=== PATIENT | male | born 1995 | race Asian ===

== ENCOUNTER 2022-08-24 05:22 | Inpatient (IN) ==
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
[2022-08-24] MEDS ORDERED: CLINDA 900 MG **Premixed Bag IV SCH (06:00)
[2022-08-24] MEDS ORDERED: LR 15ML/HR IV SCH (06:00)
[2022-08-24] MEDS ORDERED: LIDOCAINE 1%/EPINEPHRINE 1:100,000 50 ML VIAL ONE (06:52)
[2022-08-24] MEDS ORDERED: LIDOCAINE 1% LOCAL 20 ML VIAL ONE (06:52)
[2022-08-24] MEDS ORDERED: BUPIVACAINE 0.25% PF 30 ML VIAL ONE (06:52)
--- NOTE | 2022-08-24 06:52 | History & Physical Bridge Note ---
Date of Service August 24, 2022 History & Physical Bridge Note I have examined the patient, reviewed the History & Physical and in the interval since the performance of the History & Physical I have noted the following changes of clinical significance: no changes noted
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
[2022-08-24] MEDS ORDERED: fentaNYL citrate PF 100 MCG/2 ML VIAL ONE (07:02)
[2022-08-24] MEDS ORDERED: MIDAZOLAM HCL 1 MG/ML 2ML VIAL ONE (07:02)
[2022-08-24] MEDS ORDERED: HYDROmorphone INJ 2 MG/ML SYR/VIAL ONE (07:41)
[2022-08-24] MEDS ORDERED: PROPOFOL IV EMULSION 10 MG/ML 20 ML VIAL IV ONE ×3 (07:41→10:56)
[2022-08-24] MEDS ORDERED: ROCURONIUM BROMIDE 10 MG/ML 5 ML VIAL IV ONE ×2 (07:41→09:04)
[2022-08-24] MEDS ORDERED: ATROPINE SULFATE 0.1 MG/ML 10ML SYR IV PRN (08:07)
[2022-08-24] MEDS ORDERED: ONDANSETRON INJ 2 MG/ML 2 ML VIAL IV PRN ×2 (08:07→14:21)
[2022-08-24] MEDS ORDERED: ePHEDrine sulfate 50 MG/ML AMP IV PRN (08:07)
[2022-08-24] MEDS ORDERED: PROMETHAZINE HCL 6.25 MG in SODIUM CHLORIDE 0.9% 50 ML IV PRN (08:07)
[2022-08-24] MEDS ORDERED: ONDANSETRON INJ 2 MG/ML 2 ML VIAL ONE (10:54)
--- NOTE | 2022-08-24 11:51 | Operative Report ---
PG Post Operative Report Pre & Post Diagnosis Operation Date: 08/24/22 07:00 Pre-Op Diagnosis: Scar Conditions and Fibrosis of Skin; abdoinal wall hernia Post-Op Diagnosis: Scar Conditions and Fibrosis of Skin; extensive adhesions; abdominal wall hernia I identified the patient and participated in the time-out.: Yes Procedure Operation Date: 08/24/22 07:00 Actual Procedures p Complex Scar Revision Abdomen(Not Applicable) - Anny Flores MD s Complex scar revision with small bowel resection x2, Closure multiple small bowel enterotomies, extensive enterolysis and abdominal wall reconstruction (Not Applicable) - Jean Carlos Singh DO Surgeon Jean Carlos Singh, DO 2nd Surgeon: Anny Flores MD Treasury Agent Bay López Pa-c Estimated Blood Loss 200 Findings Consistent with Post-Op Diagnosis Specimens none Description of Procedure After informed consent was obtained the patient was taken to the operating room placed in supine position. After successful intubation a Fajardo catheter was placed sterilely. The abdomen was then sterilely prepped and draped in usual fashion. Dr. Flores had marked the patient previously in the preoperative area. I made an incision with a 15 blade scalpel encircling the prior widened fibrotic midline scar. We used cautery and traction/ countertraction to start taking down the skin creating flaps as we went. The skin was very thin in the central portion of the scar. As we began taking this off of underlying tissue we noted that the small bowel in multiple areas was literally to the undersurface of the skin. This necessitated making purposeful enterotomies to free the bowel from the overlying midline scar. Eventually we were able to get the scar removed completely. The next several hours were spent simply taking down primarily small bowel adhesions. They were very dense and this process was quite difficult. Eventually we were able to free up the majority of the bowel. We then evaluated the enterotomies. There were 2 areas where the enterotomies were close to each other and therefore we decided to perform a small bowel resections. We divided the small bowel on either side of the enterotomies using a JANA brown cartridge linear stapler. We then performed a [id number]-jh-[id number] small bowel anastomosis again with a 60 mm brown cartridge JANA stapler. For the 1 resection I closed the common enterotomy using 3-0 Monocryl with serosal/mucosal layers in running fashion followed by 3-0 silk in Lembert fashion as an anterior layer. 3-0 silk was also used to place a crotch stitch and 2-0 Vicryl used to close the mesenteric defect. The second small bowel resection was similar and there were 3 small enterotomies close to each other. Again we divided the small bowel on either side of the enterotomies using JANA linear stapler. Again a [id number] anastomosis was performed. However at the site of the common enterotomy there was some undersurface of the dermis and fascia attached to the bowel and therefore I closed the common enterotomy using a TA 60 stapling device. Again 3-0 silk was used to place a crotch stitch and 2-0 Vicryl used to close the mesenteric defect. There were several other serosal tears which were oversewn using 3-0 silk as well as several other through and through enterotomies which I closed using 3-0 Monocryl for double layer followed by 3-0 silk in Lembert fashion. We thoroughly irrigated the entire abdomen. Once all the enterotomies were dealt with we then changed our gloves. I ran the small bowel in its entirety and there were no other enterotomies or serosal tears. Next we created skin flaps in 360 degrees. The fascia was able to be reapproximated without a component separation. I used #2 nylon in simple erupted fashion to primarily close the defect with minimal tension. Dr. Flores then performed the closure. Please see her dictation for wound closure/scar revision. Once the wound was dressed and abdominal binder was placed. The patient was awakened extubated and transferred recovery in stable condition. Dr. Flores is well as Carolina López Pa-c were present for the entire procedure and assisted in all facets of scar removal enterotomy repair small bowel resection fascial closure and wound closure. I attest to the content of the Intraoperative Record and any orders documented therein. Any exceptions are noted below.
[2022-08-24] MEDS: fentaNYL citrate PF 100 MCG/2 ML VIAL IV PRN ×2 (12:10→12:15)
--- NOTE | 2022-08-24 12:19 | Operative Report ---
PG Post Operative Report Pre & Post Diagnosis Operation Date: 08/24/22 07:00 Pre-Op Diagnosis: Scar Conditions and Fibrosis of Skin Post-Op Diagnosis: Scar Conditions and Fibrosis of Skin I identified the patient and participated in the time-out.: Yes Procedure Operation Date: 08/24/22 07:00 Actual Procedures p Complex Scar Revision Abdomen(Not Applicable) - Anny Flores MD s Complex scar revision with small bowel resection x2, Closure multiple small bowel enterotomies, extensive enterolysis and abdominal wall reconstruction (Not Applicable) - Jean Carlos Singh, Surgeon Anny Flores MD Stacker Bay López Pa-c Estimated Blood Loss 200 Findings Consistent with Post-Op Diagnosis Specimens none Anesthesia Type General Indications Large, atrophic abdominal scar secondary to traumatic injury/emergent laparatomy Description of Procedure Consent was obtained. Patient was identified and marked in the preoperative holding area. I marked the planned incision in elliptical fashion incorporating all of the prior atrophic scar at the junction of scar and normal-appearing skin. Patient was brought to the operating room, positioned supine, placed under general anesthesia. Timeout was performed. I scrubbed and assisted Dr. Singh throughout his portion of the procedure; please see his dictated operative report for details. Upon closure of the fascia, I did take over and perform complex wound closure of the abdominal wound. Wound edges were undermined about 3 cm. Where Eduard's fascia was able to be notified, 2-0 Vicryl interrupted sutures were placed, followed by 2-0 Vicryl deep dermal suture. I then performed superficial closure using 3-0 PDS interrupted superficial dermal suture. A prominent standing cutaneous deformity did develop at the inferior aspect of the incision. Rather than continue to pernell this in a vertical direction, I did elect to perform a small horizontal excision of dogears and closed the wound in a horizontal fashion, resulting in a small inverted T. After closure of the superficial dermis, cutaneous layer was closed with 3-0 Monocryl running subcuticular suture. Total wound closure length 27 cm. Due to the large nature of this wound, multiple enterotomies, complexity, I did elect to place a Prevena wound VAC. Dry dressings and abdominal binder were placed. Patient was awakened and transferred recovery in satisfactory condition. Carolina López PA-C was present and scrubbed throughout, assisted me in simultaneous layered wound closure. I attest to the content of the Intraoperative Record and any orders documented therein. Any exceptions are noted below.
--- NOTE | 2022-08-24 12:20 | Post Operative Brief Note ---
PG Immediate Post Op with CF Date of Surgery August 24, 2022 Pre & Post Diagnosis Operation Date: 08/24/22 07:00 Pre-Op Diagnosis: Scar Conditions and Fibrosis of Skin Post-Op Diagnosis: Scar Conditions and Fibrosis of Skin I identified the patient and participated in the time-out.: Yes Procedure Operation Date: 08/24/22 07:00 Actual Procedures p Complex Scar Revision Abdomen(Not Applicable) - Anny Flores MD s Complex scar revision with small bowel resection x2, Closure multiple small bowel enterotomies, extensive enterolysis and abdominal wall reconstruction (Not Applicable) - Jean Carlos Singh, Surgeon Anny Flores MD Foot Piece Assembler Bay López Pa-c Estimated Blood Loss 200 Findings Consistent with Post-Op Diagnosis Specimens Specimen Description: No Specimen per surgeon(s) Drains Fajardo Catheter and Justin-Willis Drain (10 mm Flat)
[2022-08-24] MEDS: HYDROmorphone INJ 2 MG/ML SYR/VIAL IV PRN ×4 (12:26→12:42)
[2022-08-24] MEDS: HYDROmorphone INJ 0.5 MG/0.5 ML SYR IV PRN ×2 (13:05→13:25)
--- NOTE | 2022-08-24 13:41 | Anesthesiology Progress Note ---
Date of Service August 24, 2022 Anesthesia Post Procedure Vital Signs Vital Signs: Temp Pulse Pulse Resp BP Pulse Ox O2 Del Method 08/24/22 13:30 110 H 20 130/86 98 Nasal Cannula 08/24/22 13:20 102 H 17 139/85 98 Nasal Cannula 08/24/22 13:10 96 H 20 131/79 97 Nasal Cannula 08/24/22 13:00 98.4 F 96 H 15 138/82 98 Nasal Cannula 08/24/22 12:50 98.4 F 90 14 149/88 H 100 Nasal Cannula 08/24/22 12:40 98.4 F 99 H 13 146/87 H 100 Nasal Cannula 08/24/22 12:30 98.4 F 85 17 147/91 H 100 Nasal Cannula 08/24/22 12:20 98.4 F 87 12 150/91 H 100 Nasal Cannula 08/24/22 12:10 98.4 F 93 H 12 143/89 H 100 Nasal Cannula 08/24/22 12:07 98.4 F 102 H 12 143/114 H 100 Nasal Cannula 08/24/22 05:50 98.1 F 81 20 113/77 96 Room Air O2 Flow Rate 08/24/22 13:30 3 08/24/22 13:20 3 08/24/22 13:10 3 08/24/22 13:00 3 08/24/22 12:50 3 08/24/22 12:40 3 08/24/22 12:30 3 08/24/22 12:20 3 08/24/22 12:10 3 08/24/22 12:07 3 08/24/22 05:50 Pain Intensity Abdomen: Pain Intensity: 5 Transfer of Care Handoff Completed per policy Notes Mental Status: alert / awake / arousable and participated in evaluation Patient Amnestic to Procedure: Yes Nausea / Vomiting: adequately controlled Pain: adequately controlled Airway Patency, RR, SpO2: stable & adequate BP & HR: stable & adequate Hydration State: stable & adequate Anesthetic Complications: no major complications apparent and Pt Satisfied with anesthetic care
[2022-08-24] MEDS ORDERED: ACETAMINOPHEN 325 MG TAB PO PRN (14:21)
[2022-08-24] MEDS ORDERED: diphenhydrAMINE Capsule 25 MG CAP PO PRN (14:21)
[2022-08-24] MEDS ORDERED: MoRPHine SULFATE 2 MG/ML CARP IV PRN ×2 (14:21→15:31)
[2022-08-24] MEDS ORDERED: oxyCODONE/ACETAMINOPHEN 5mg/325mg TAB PO PRN (14:21)
[2022-08-24] MEDS: D5W AND 1/2NSS + 20MEQ KCL 20 MEQ/1,000 ML BAG IV SCH (14:58)
[2022-08-24] MEDS: CLINDAMYCIN/D5W 600 MG/50 ML BAG IV SCH ×2 (14:58→23:03)
[2022-08-24] MEDS ORDERED: MoRPHine SULFATE 4 MG/ML 1 ML CARP\\VIAL IV PRN (15:27)
[2022-08-24] MEDS ORDERED: NALOXONE HCL 0.4 MG/1 ML VIAL/CARP IV PRN (15:56)
[2022-08-24] MEDS: ACETAMINOPHEN 1,000 MG/100 ML VIAL IV SCH ×2 (16:05→23:03)
[2022-08-24] MEDS: HYDROmorphone PCA 30 MG/30 ML IV PRN (16:14)
[2022-08-24] MEDS: SODIUM CHLORIDE 0.9% 1000ML 1,000 ML IV SCH (17:21)
[2022-08-24] MEDS: LORazepam 0.5 MG TAB PO PRN (23:03)
[2022-08-24] MEDS: diphenhydrAMINE 50 MG/ML VIAL IV PRN (23:58)
[2022-08-25] MEDS: D5W AND 1/2NSS + 20MEQ KCL 20 MEQ/1,000 ML BAG IV SCH ×2 (06:03→20:31)
[2022-08-25] MEDS: ACETAMINOPHEN 1,000 MG/100 ML VIAL IV SCH ×3 (06:07→23:00)
[2022-08-25] MEDS: CLINDAMYCIN/D5W 600 MG/50 ML BAG IV SCH (06:41)
[2022-08-25 07:33] LABS: Basophils # (auto) 0.03 K/uL (0-0.2); Basophils % (auto) 0.2 %; Eosinophils # (auto) 0.01 K/uL (0-0.50); Eosinophils % (auto) 0.1 %; Hematocrit (blood only) 40.9 % (42.0-52.0); Hemoglobin 14.1 g/dl (14.0-18.0); Immature Granulocytes # (auto) 0.08 K/uL (0.01-0.20); Immature Granulocytes % (auto) 0.5 %; Lymphocytes # (auto) 1.73 K/uL (1.2-3.4); Mean Corpuscular Hemoglobin 29.6 pg (25.0-34.0); Mean Corpuscular Hgb Conc 34.5 g/dL (32.0-36.0); Mean Corpuscular Volume 85.9 fL (80.0-100.0); Mean Platelet Volume 10.5 fL (9.4-12.4); Monocytes # (auto) 1.27 K/uL (0.11-0.59); Monocytes % (auto) 8.1 %; Neutrophils # (auto) 12.59 K/uL (1.40-6.50); Neutrophils % (auto) 80.1 %; Platelet Count 228 K/uL (130-400); RDW Coefficient of Variation 12.9 % (11.5-14.5); RDW Standard Deviation 40.3 fL (36.4-46.3); Red Blood Count 4.76 M/uL (4.70-6.10); White Blood Count 15.71 K/ul (4.8-10.8)
[2022-08-25 07:57] LABS: BUN Creatinine Ratio 11.4 (10-20); Calcium 8.2 mg/dl (8.5-10.1); Creatinine Clr Calc Pharmacy 139.4 ml/min; Est GFR (African American) 143.6 ml/min; Est GFR (Non-African American) 123.9 ml/min; Potassium 3.5 mmol/L (3.5-5.1)
--- NOTE | 2022-08-25 08:23 | Surgery Progress Note ---
Date of Service August 25, 2022 Assessment & Plan (1) Scar conditions and fibrosis of skin: Plan: Patient was evaluated with Dr. Singh. NG tube to stay 1-2 more days. He may continue with small sips and ice chips- expect post-op ileus due to extensive bowel manipulation. Armand encouraged to ambulate today. (2) Acquired abdominal wall defect: Admission and Anticipated Discharge Date Admission Date: August 24, 2022 Subjective Armand is resting comfortably in bed. Pain was uncontrolled last night, so he was switched to CEMENTER pump, now pain is manageable. Fajardo was removed this AM. He has not voided yet. Physical Exam Physical Exam: drain with serosang output. wound vac holding excellent suction, abd soft Results & Data ([facility]) Vital Signs (Past 12 Hours) Vital Signs Temp Pulse Resp BP Pulse Ox O2 Del Method O2 Flow Rate 08/25/22 08:03 Room Air 08/25/22 07:28 36.9 C 80 18 121/80 96 Nasal Cannula 1 08/24/22 20:30 Nasal Cannula 1 08/25/22 03:00 37.1 C 88 16 119/75 100 Nasal Cannula 1.0 08/24/22 22:27 36.9 C 89 14 133/78 100 Nasal Cannula 1.0 PG Care Time/CCT Total # of Minutes Spent Total Time Spent with Patient: Total time spent is greater than 50% in coordination of care (as documented) at patient's floor/unit and/or counseling patient: Coding Level of Care Code 20081 Post Operative Follow-Up Diagnoses Scar conditions and fibrosis of skin L90.5 Acquired abdominal wall defect M95.8
--- NOTE | 2022-08-25 08:31 | Surgery Progress Note ---
Date of Service August 25, 2022 Assessment & Plan (1) H/O abdominal surgery: Plan: Postoperative day #1 Doing well I would like to keep the NG tube as long as he can tolerate it until we get return of bowel function. At extremely high risk for postoperative ileus. Fajardo removed. Keep CEMETERY KEEPER for now. Encourage out of bed/ambulation as tolerated. Admission and Anticipated Discharge Date Admission Date: August 24, 2022 Subjective Patient seen. He actually looks better than I expected. He sitting up in bed and appears to be comfortable. Pain management changed to a Dilaudid CEMETERY KEEPER last night which did improve things. Physical Exam Physical Exam: Alert. No acute distress VIDYA drain with pink serous fluid only. Binder taken down. Wound VAC in place and functioning nicely. Results & Data ([facility]) Vital Signs (Past 12 Hours) Vital Signs Temp Pulse Resp BP Pulse Ox O2 Del Method O2 Flow Rate 08/25/22 08:03 Room Air 08/25/22 07:28 36.9 C 80 18 121/80 96 Nasal Cannula 1 08/24/22 20:30 Nasal Cannula 1 08/25/22 03:00 37.1 C 88 16 119/75 100 Nasal Cannula 1.0 08/24/22 22:27 36.9 C 89 14 133/78 100 Nasal Cannula 1.0 PG Care Time/CCT Total # of Minutes Spent Total Time Spent with Patient: Total time spent is greater than 50% in coordination of care (as documented) at patient's floor/unit and/or counseling patient: Coding Level of Care Code 80375 Post Operative Follow-Up Diagnoses H/O abdominal surgery Z98.890
[2022-08-25] MEDS: MULTIVITAMIN TAB PO SCH (08:43)
[2022-08-25] MEDS: SODIUM CHLORIDE 0.9% 1000ML 1,000 ML IV SCH (15:21)
--- NOTE | 2022-08-25 16:10 | Surgery Progress Note ---
Date of Service August 25, 2022 Assessment & Plan (1) Scar conditions and fibrosis of skin: (2) Acquired abdominal wall defect: Plan Prevena will stay in place ~7 days. NG tube/diet management per general surgery. Admission and Anticipated Discharge Date Admission Date: August 24, 2022 Subjective POD #1 s/p complex scar revision, SB resection x2, closure enterotomies, enterolysis, ab wall reconstruction. Doing well. Pain controlled Physical Exam Physical Exam: Patient out of bed, sitting in a chair, appears comfortable. drain with serosang output. wound vac holding excellent suction, abd soft Results & Data ([facility]) Vital Signs (Past 12 Hours) Vital Signs Temp Pulse Resp BP Pulse Ox O2 Del Method O2 Flow Rate 08/25/22 12:27 98.4 F 102 H 18 121/75 99 Nasal Cannula 1 08/25/22 08:03 Room Air 08/25/22 07:28 98.4 F 80 18 121/80 96 Nasal Cannula 1 Laboratory Results WBC 15.7, Hgb 14.1 PG Care Time/CCT Total # of Minutes Spent Total Time Spent with Patient: Total time spent is greater than 50% in coordination of care (as documented) at patient's floor/unit and/or counseling patient: Coding Level of Care Code 82075 Post Operative Follow-Up Diagnoses Scar conditions and fibrosis of skin L90.5 Acquired abdominal wall defect M95.8
[2022-08-25] MEDS: LORazepam 0.5 MG TAB PO PRN (20:41)
[2022-08-25] MEDS: diphenhydrAMINE 50 MG/ML VIAL IV PRN (20:42)
[2022-08-26] MEDS: ACETAMINOPHEN 1,000 MG/100 ML VIAL IV SCH ×3 (05:23→23:15)
[2022-08-26 07:59] LABS: Basophils # (auto) 0.04 K/uL (0-0.2); Basophils % (auto) 0.2 %; Eosinophils # (auto) 0.01 K/uL (0-0.50); Eosinophils % (auto) 0.1 %; Hematocrit (blood only) 35.7 % (42.0-52.0); Hemoglobin 12.4 g/dl (14.0-18.0); Immature Granulocytes # (auto) 0.09 K/uL (0.01-0.20); Immature Granulocytes % (auto) 0.5 %; Lymphocytes # (auto) 1.78 K/uL (1.2-3.4); Lymphocytes % (auto) 9.6 %; Mean Corpuscular Hgb Conc 34.7 g/dL (32.0-36.0); Mean Corpuscular Volume 86.4 fL (80.0-100.0); Mean Platelet Volume 10.5 fL (9.4-12.4); Monocytes # (auto) 1.59 K/uL (0.11-0.59); Monocytes % (auto) 8.6 %; Neutrophils # (auto) 14.95 K/uL (1.40-6.50); Platelet Count 230 K/uL (130-400); RDW Coefficient of Variation 12.7 % (11.5-14.5); RDW Standard Deviation 40.2 fL (36.4-46.3); Red Blood Count 4.13 M/uL (4.70-6.10); White Blood Count 18.46 K/ul (4.8-10.8)
[2022-08-26 08:22] LABS: BUN Creatinine Ratio 9.7 (10-20); Calcium 8.6 mg/dl (8.5-10.1); Creatinine Clr Calc Pharmacy 152.9 ml/min; Est GFR (African American) 149.2 ml/min; Est GFR (Non-African American) 128.7 ml/min; Potassium 3.5 mmol/L (3.5-5.1)
[2022-08-26] MEDS: HYDROmorphone PCA 30 MG/30 ML IV PRN (09:08)
[2022-08-26] MEDS: CLINDAMYCIN/D5W 600 MG/50 ML BAG IV SCH ×3 (10:07→23:16)
[2022-08-26] MEDS: D5W AND 1/2NSS + 20MEQ KCL 20 MEQ/1,000 ML BAG IV SCH (10:07)
--- NOTE | 2022-08-26 10:13 | Surgery Progress Note ---
Date of Service August 26, 2022 Assessment & Plan (1) H/O abdominal surgery: Plan Postoperative day #2. I would prefer to keep his NG tube another day but he really is insisting it be removed. I warned him that if he gets distended or nauseated we might have to put it back in. We will remove it but only allow him to continue to have some sips of liquids until he gets return of his bowel function. We will monitor his leukocytosis. Likely reactive secondary to the surgery. No overt signs of infection at this point. Admission and Anticipated Discharge Date Admission Date: August 24, 2022 Subjective Patient seen. Doing okay. Ambulated in the halls yesterday and this morning. No new complaints. Basically insisting his NG tube be removed. Physical Exam Physical Exam: Alert. Resting comfortably. No acute distress Wound VAC in place the wound looks good VIDYA drain with a small amount of serosanguineous output Results & Data ([facility]) Vital Signs (Past 12 Hours) Vital Signs Temp Pulse Resp BP Pulse Ox O2 Del Method O2 Flow Rate 08/26/22 08:57 Room Air 08/26/22 08:41 37.2 C 101 H 18 129/80 97 Nasal Cannula 1 08/26/22 03:35 37.4 C 99 H 14 128/69 97 Room Air 08/25/22 23:30 37.7 C H 112 H 16 133/83 97 Room Air PG Care Time/CCT Total # of Minutes Spent Total Time Spent with Patient: Total time spent is greater than 50% in coordination of care (as documented) at patient's floor/unit and/or counseling patient: Coding Level of Care Code 68942 Post Operative Follow-Up Diagnoses H/O abdominal surgery Z98.890
[2022-08-26] MEDS: MULTIVITAMIN TAB PO SCH (11:12)
--- NOTE | 2022-08-26 12:56 | Surgery Progress Note ---
Date of Service August 26, 2022 Assessment & Plan (1) H/O abdominal surgery: Plan: Wound vac will stay in place until 1 week post-op. Patient encouraged only small sips as the can of soda is likely contributing to his nausea. He was encouraged to continue walking in halls. Leukocytosis being watched by gen Surg. Will recheck patient tomorrow morning. Admission and Anticipated Discharge Date Admission Date: August 24, 2022 Ruiz Acuna is examined in bed. He reports feeling nauseous and weak. NG tube was removed this AM, and he has since drank an entire can of Sprite. He has tried ambulating, has not passed any flatus. WBC is up today from 15 to 18. Physical Exam Physical Exam: HR 100 BP 98/65 drain with bloody, sang output. drain stripped. abd soft, wound vac holding suction, mild ecchymosis noted under wound vac dressing Results & Data ([facility]) Vital Signs (Past 12 Hours) Vital Signs Temp Pulse Resp BP Pulse Ox O2 Del Method O2 Flow Rate 08/26/22 12:25 36.8 C 100 H 18 98/65 L 100 Nasal Cannula 1 08/26/22 08:57 Room Air 08/26/22 08:41 37.2 C 101 H 18 129/80 97 Nasal Cannula 1 08/26/22 03:35 37.4 C 99 H 14 128/69 97 Room Air PG Care Time/CCT Total # of Minutes Spent Total Time Spent with Patient: Total time spent is greater than 50% in coordination of care (as documented) at patient's floor/unit and/or counseling patient: Coding Level of Care Code 48432 Post Operative Follow-Up Diagnoses H/O abdominal surgery Z98.890
[2022-08-26] MEDS: ENOXAPARIN INJ 40 MG/0.4 ML SYR SQ SCH (16:39)
[2022-08-26] MEDS: SODIUM CHLORIDE 0.9% 1000ML 1,000 ML IV SCH (16:51)
[2022-08-27] MEDS: LORazepam 0.5 MG TAB PO PRN ×2 (00:46→22:32)
[2022-08-27] MEDS: D5W AND 1/2NSS + 20MEQ KCL 20 MEQ/1,000 ML BAG IV SCH ×2 (00:46→14:23)
[2022-08-27] MEDS: ACETAMINOPHEN 1,000 MG/100 ML VIAL IV SCH ×3 (05:38→20:22)
[2022-08-27 06:52] LABS: Basophils # (auto) 0.02 K/uL (0-0.2); Basophils % (auto) 0.1 %; Eosinophils # (auto) 0.08 K/uL (0-0.50); Eosinophils % (auto) 0.6 %; Hemoglobin 9.7 g/dl (14.0-18.0); Immature Granulocytes # (auto) 0.06 K/uL (0.01-0.20); Immature Granulocytes % (auto) 0.4 %; Lymphocytes # (auto) 1.19 K/uL (1.2-3.4); Lymphocytes % (auto) 8.4 %; Mean Corpuscular Hemoglobin 29.8 pg (25.0-34.0); Mean Corpuscular Hgb Conc 34.6 g/dL (32.0-36.0); Mean Corpuscular Volume 86.2 fL (80.0-100.0); Mean Platelet Volume 10.3 fL (9.4-12.4); Monocytes % (auto) 8.5 %; Neutrophils # (auto) 11.54 K/uL (1.40-6.50); Platelet Count 197 K/uL (130-400); RDW Coefficient of Variation 12.4 % (11.5-14.5); RDW Standard Deviation 39.3 fL (36.4-46.3); Red Blood Count 3.25 M/uL (4.70-6.10); White Blood Count 14.09 K/ul (4.8-10.8)
[2022-08-27 07:08] LABS: Anion Gap 5 (3-11); BUN Creatinine Ratio 9.5 (10-20); Blood Urea Nitrogen 6 mg/dl (6-23); Calcium 8.1 mg/dl (8.5-10.1); Carbon Dioxide 29 mmol/L (21-32); Chloride 99 mmol/L (98-107); Creatinine Clr Calc Pharmacy 174.8 ml/min; Est GFR (African American) > 150.0 ml/min; Glucose 101 mg/dl (70-99(Fasting)); Potassium 3.2 mmol/L (3.5-5.1); Sodium 133 mmol/L (136-145)
[2022-08-27] MEDS ORDERED: POTASSIUM CHLORIDE CRTAB 20 MEQ TABCR PO STA (07:34)
[2022-08-27] MEDS: CLINDAMYCIN/D5W 600 MG/50 ML BAG IV SCH ×2 (08:19→16:41)
[2022-08-27] MEDS: ENOXAPARIN INJ 40 MG/0.4 ML SYR SQ SCH (08:20)
[2022-08-27] MEDS: MULTIVITAMIN TAB PO SCH (08:20)
--- NOTE | 2022-08-27 08:22 | Surgery Progress Note ---
Date of Service August 27, 2022 Assessment & Plan (1) H/O abdominal surgery: Plan: POD#3 abdominal wall reconstruction, repair of enterotomies/small bowel resection x2, lysis of adhesions, complex scar revision Patient doing okay overall, vital signs stable WBC 14 (18), Hbg 9.7 (12)--will monitor with start of lovenox- no overt signs of bleeding. K 3.2- replaced Incisions c/d/i, with vac to midline holding good suction. VIDYA drain with serosang drainage ~15 cc documented, was stripped Continue sips/chips while awaiting return of bowel function Vieira replaced due to urinary retention and bladder pressure yesterday, will keep in for today Continue to work on ambulation and pulmonary toilet as above. overall looking pretty good. will hold lovenox and monitor h/h no bowel fx yet....ice chips only for now will remove vieira and see how he does. continue to ambulate. may have chewing gum/hard candy. Admission and Anticipated Discharge Date Admission Date: August 24, 2022 Subjective Patient is feeling well. Currently denies nausea. Pain controlled. Had some pressure over bladder yesterday with inability to void, therefore patient was cathed and vieira left in. Feeling better from that standpoint as well. Says he has been ambulating. No flatus/BM yet. Physical Exam Physical Exam: awake/alert, no distress Gastrointestinal (Abdomen): Inspection/Auscultation: + abdominal surgical incision (c/d/i with vac in place along midline abdomen, holding suction. ) and + abdominal surgical drain present (15cc documented. serosang.); abdomen not distended Percussion/Palpation: + abdomen tender (cristian-incisional discomfort to palpation ) and abdomen soft some ecchymosis noted to inferior portion of incision. no signs of infection Results & Data ([facility]) Vital Signs (Past 12 Hours) Vital Signs Temp Pulse Pulse Resp BP Pulse Ox O2 Del Method 08/27/22 04:00 36.9 C 94 H 18 108/70 96 Nasal Cannula 08/27/22 00:59 36.8 C 08/26/22 22:47 37.7 C H 100 H 12 08/26/22 22:46 37.7 C H 100 H 21 116/71 100 Nasal Cannula O2 Flow Rate 08/27/22 04:00 2 08/27/22 00:59 08/26/22 22:47 08/26/22 22:46 1.5 PG Care Time/CCT Total # of Minutes Spent Total Time Spent with Patient: Total time spent is greater than 50% in coordination of care (as documented) at patient's floor/unit and/or counseling patient: Coding Level of Care Code None Diagnoses H/O abdominal surgery Z98.890
--- NOTE | 2022-08-27 09:03 | Surgery Progress Note ---
Date of Service August 27, 2022 Assessment & Plan (1) H/O abdominal surgery: Plan: Armand is stable regarding his wound/incision. Wound vac stays in place until 7 days post-op. Nurse will change xeroform around drain site daily. Admission and Anticipated Discharge Date Admission Date: August 24, 2022 Subjective Patient appears more comfortable than yesterday. Nausea has resolved. Fajardo placed overnight. Vitals improving, WBC trending down, but hgb/hct also trending down. No flatus yet, he is ambulating. Physical Exam Physical Exam: wound vac still holding excellent suction. no worsening ecchymosis of the abdomen. large clot in drain- stripped and clot was dislodged Results & Data ([facility]) Vital Signs (Past 12 Hours) Vital Signs Temp Pulse Pulse Resp BP Pulse Ox O2 Del Method 08/27/22 04:00 36.9 C 94 H 18 108/70 96 Nasal Cannula 08/27/22 00:59 36.8 C 08/26/22 22:47 37.7 C H 100 H 12 08/26/22 22:46 37.7 C H 100 H 21 116/71 100 Nasal Cannula O2 Flow Rate 08/27/22 04:00 2 08/27/22 00:59 08/26/22 22:47 08/26/22 22:46 1.5 PG Care Time/CCT Total # of Minutes Spent Total Time Spent with Patient: Total time spent is greater than 50% in coordination of care (as documented) at patient's floor/unit and/or counseling patient: Coding Level of Care Code 76852 Post Operative Follow-Up Diagnoses H/O abdominal surgery Z98.890
[2022-08-27] MEDS ORDERED: ALUMINUM/MAGNESIUM SUSP 30 ML UDC PO PRN (13:18)
[2022-08-27] MEDS: SODIUM CHLORIDE 0.9% 1000ML 1,000 ML IV SCH (16:39)
[2022-08-27] MEDS ORDERED: Nursing to Pharmacy Communication SCH (18:00)
[2022-08-27] MEDS: PROMETHAZINE HCL 12.5 MG in SODIUM CHLORIDE 0.9% 50 ML IV PRN (19:57)
[2022-08-28] MEDS: CLINDAMYCIN/D5W 600 MG/50 ML BAG IV SCH ×3 (00:51→16:23)
[2022-08-28] MEDS: D5W AND 1/2NSS + 20MEQ KCL 20 MEQ/1,000 ML BAG IV SCH ×2 (00:52→16:23)
[2022-08-28] MEDS: ACETAMINOPHEN 1,000 MG/100 ML VIAL IV SCH ×3 (05:31→20:25)
[2022-08-28 05:38] LABS: Basophils # (auto) 0.02 K/uL (0-0.2); Basophils % (auto) 0.2 %; Eosinophils # (auto) 0.04 K/uL (0-0.50); Eosinophils % (auto) 0.3 %; Hematocrit (blood only) 27.8 % (42.0-52.0); Hemoglobin 9.8 g/dl (14.0-18.0); Immature Granulocytes # (auto) 0.06 K/uL (0.01-0.20); Immature Granulocytes % (auto) 0.5 %; Lymphocytes # (auto) 0.72 K/uL (1.2-3.4); Lymphocytes % (auto) 5.4 %; Mean Corpuscular Hemoglobin 29.7 pg (25.0-34.0); Mean Corpuscular Hgb Conc 35.3 g/dL (32.0-36.0); Mean Corpuscular Volume 84.2 fL (80.0-100.0); Mean Platelet Volume 9.4 fL (9.4-12.4); Monocytes # (auto) 1.26 K/uL (0.11-0.59); Monocytes % (auto) 9.5 %; Neutrophils # (auto) 11.23 K/uL (1.40-6.50); Neutrophils % (auto) 84.1 %; Platelet Count 237 K/uL (130-400); RDW Coefficient of Variation 12.7 % (11.5-14.5); RDW Standard Deviation 39.1 fL (36.4-46.3); White Blood Count 13.33 K/ul (4.8-10.8)
[2022-08-28 05:54] LABS: Anion Gap 7 (3-11); BUN Creatinine Ratio 8.8 (10-20); Blood Urea Nitrogen 6 mg/dl (6-23); Calcium 8.1 mg/dl (8.5-10.1); Carbon Dioxide 27 mmol/L (21-32); Chloride 101 mmol/L (98-107); Creatinine Clr Calc Pharmacy 161.9 ml/min; Est GFR (African American) > 150.0 ml/min; Est GFR (Non-African American) 131.8 ml/min; Glucose 107 mg/dl (70-99(Fasting)); Potassium 3.5 mmol/L (3.5-5.1); Sodium 135 mmol/L (136-145)
[2022-08-28] MEDS: MULTIVITAMIN TAB PO SCH (08:43)
--- NOTE | 2022-08-28 09:41 | Surgery Progress Note ---
Date of Service August 28, 2022 Assessment & Plan (1) H/O abdominal surgery: Plan: Slow return of bowel function which is not unexpected. Likely developing an ileus. Some increased abdominal distention with persistent nausea. Will place NG tube to low intermittent suction. If no return of bowel function by Tuesday may need to place a PICC line and start some peripheral nutrition. Admission and Anticipated Discharge Date Admission Date: August 24, 2022 Subjective Patient seen. Continues to have what he calls abdominal cramping and pressure. He also continues to have a lot of belching and underlying nausea. He did have a small bowel movement last night. This provided temporary relief. Physical Exam Physical Exam: Alert. No acute distress Wound VAC in place with minimal drainage. VIDYA drain with small amount of serosanguineous output. Diffusely tender but no evidence of peritonitis. Results & Data ([facility]) Vital Signs (Past 12 Hours) Vital Signs Temp Pulse Resp BP Pulse Ox O2 Del Method 08/28/22 05:35 37.5 C 102 H 18 118/75 97 Room Air 08/28/22 02:31 37.8 C H 100 H 16 110/71 99 Room Air 08/27/22 22:31 36.9 C 90 18 143/80 H 98 Room Air PG Care Time/CCT Total # of Minutes Spent Total Time Spent with Patient: Total time spent is greater than 50% in coordination of care (as documented) at patient's floor/unit and/or counseling patient: Coding Level of Care Code 19637 Post Operative Follow-Up Diagnoses H/O abdominal surgery Z98.890
--- NOTE | 2022-08-28 11:54 | XRay Report ---
KUB CLINICAL HISTORY: ng tube COMPARISON STUDY: CT of the abdomen and pelvis February 16, 2022. FINDINGS: Surgical drain is partially imaged. Prominent gas-filled loops of bowel are present. Tip of nasogastric tube is within the gastric fundus. IMPRESSION: Tip of nasogastric tube within the gastric fundus. ACT 112: Negative or not required by law. Electronically signed by: En Goncalves M.D. 08/28/2022 11:53 AM
[2022-08-28] MEDS: SODIUM CHLORIDE 0.9% 1000ML 1,000 ML IV SCH (16:07)
[2022-08-29] MEDS: LORazepam 0.5 MG TAB PO PRN ×2 (00:17→22:32)
[2022-08-29] MEDS: PROMETHAZINE HCL 12.5 MG in SODIUM CHLORIDE 0.9% 50 ML IV PRN (00:17)
[2022-08-29] MEDS: CLINDAMYCIN/D5W 600 MG/50 ML BAG IV SCH ×4 (00:19→22:27)
[2022-08-29] MEDS: D5W AND 1/2NSS + 20MEQ KCL 20 MEQ/1,000 ML BAG IV SCH ×2 (04:56→17:49)
[2022-08-29] MEDS: HYDROmorphone PCA 30 MG/30 ML IV PRN (04:56)
[2022-08-29] MEDS: ACETAMINOPHEN 1,000 MG/100 ML VIAL IV SCH (04:57)
[2022-08-29 06:38] LABS: Basophils # (auto) 0.04 K/uL (0-0.2); Basophils % (auto) 0.3 %; Eosinophils # (auto) 0.04 K/uL (0-0.50); Eosinophils % (auto) 0.3 %; Hematocrit (blood only) 28.6 % (42.0-52.0); Immature Granulocytes # (auto) 0.11 K/uL (0.01-0.20); Immature Granulocytes % (auto) 0.8 %; Lymphocytes # (auto) 0.95 K/uL (1.2-3.4); Lymphocytes % (auto) 7.2 %; Mean Corpuscular Hemoglobin 29.6 pg (25.0-34.0); Mean Corpuscular Volume 84.6 fL (80.0-100.0); Mean Platelet Volume 9.5 fL (9.4-12.4); Monocytes % (auto) 9.9 %; Neutrophils # (auto) 10.69 K/uL (1.40-6.50); Neutrophils % (auto) 81.5 %; Platelet Count 319 K/uL (130-400); RDW Coefficient of Variation 12.8 % (11.5-14.5); RDW Standard Deviation 38.9 fL (36.4-46.3); Red Blood Count 3.38 M/uL (4.70-6.10); White Blood Count 13.13 K/ul (4.8-10.8)
[2022-08-29 07:05] LABS: Anion Gap 8 (3-11); Calcium 8.3 mg/dl (8.5-10.1); Carbon Dioxide 26 mmol/L (21-32); Chloride 100 mmol/L (98-107); Potassium 3.4 mmol/L (3.5-5.1); Sodium 134 mmol/L (136-145)
[2022-08-29 07:11] LABS: BUN Creatinine Ratio 10.3 (10-20); Blood Urea Nitrogen 6 mg/dl (6-23); Creatinine Clr Calc Pharmacy 189.9 ml/min; Est GFR (African American) > 150.0 ml/min; Est GFR (Non-African American) 140.7 ml/min; Glucose 105 mg/dl (70-99(Fasting))
[2022-08-29] MEDS: MULTIVITAMIN TAB PO SCH (08:08)
[2022-08-29] MEDS ORDERED: POTASSIUM CHLORIDE CRTAB 20 MEQ TABCR PO STA (08:37)
[2022-08-29] MEDS ORDERED: oxyCODONE/ACETAMINOPHEN 5mg/325mg TAB PO PRN (09:22)
--- NOTE | 2022-08-29 09:26 | Surgery Progress Note ---
Date of Service August 29, 2022 Assessment & Plan (1) H/O abdominal surgery: Plan: Doing okay. Hopefully bowel function is starting to return. We will reinitiate clear liquid diet and see how he does. 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 Will discuss with plastics tomorrow regarding changing his wound VAC. Patient did have 1 fever overnight. We will monitor that as well as his white blood cell count. Clinically appears to be improving. Admission and Anticipated Discharge Date Admission Date: August 24, 2022 Subjective Patient seen. Overall looks better than yesterday. Denies nausea. He is passing large amounts of flatus. NG tube had to be removed secondary to discomfort. Physical Exam Physical Exam: Alert. No acute distress Wound VAC in place. Putting out small amounts of serosanguineous drainage. VIDYA drain still with small amounts of serosanguineous drainage as well. Results & Data ([facility]) Vital Signs (Past 12 Hours) Vital Signs Temp Pulse Pulse Resp BP Pulse Ox O2 Del Method 08/29/22 08:04 36.8 C 94 H 20 127/79 96 Room Air 08/29/22 04:00 37.2 C 84 18 136/80 95 Room Air 08/29/22 00:21 37.2 C 92 H 18 127/84 97 Room Air PG Care Time/CCT Total # of Minutes Spent Total Time Spent with Patient: Total time spent is greater than 50% in coordination of care (as documented) at patient's floor/unit and/or counseling patient: Coding Level of Care Code 16912 Post Operative Follow-Up Diagnoses H/O abdominal surgery Z98.890
[2022-08-29] MEDS: KETOROLAC TROMETHAMINE 15 MG/ML VIAL IV SCH ×3 (10:20→22:27)
[2022-08-29] MEDS: HYDROmorphone INJ 0.5 MG/0.5 ML SYR IV PRN ×2 (13:29→20:34)
[2022-08-29] MEDS: oxyCODONE/ACETAMINOPHEN 5mg/325mg TAB PO PRN (15:18)
[2022-08-29] MEDS: SODIUM CHLORIDE 0.9% 1000ML 1,000 ML IV SCH (16:35)
[2022-08-30] MEDS: HYDROmorphone INJ 0.5 MG/0.5 ML SYR IV PRN ×8 (01:09→23:34)
[2022-08-30] MEDS: oxyCODONE/ACETAMINOPHEN 5mg/325mg TAB PO PRN ×3 (02:53→17:01)
[2022-08-30] MEDS: KETOROLAC TROMETHAMINE 15 MG/ML VIAL IV SCH ×4 (02:53→21:16)
[2022-08-30 06:17] LABS: Basophils # (auto) 0.03 K/uL (0-0.2); Basophils % (auto) 0.2 %; Eosinophils % (auto) 1.6 %; Hematocrit (blood only) 26.7 % (42.0-52.0); Hemoglobin 9.4 g/dl (14.0-18.0); Immature Granulocytes # (auto) 0.22 K/uL (0.01-0.20); Immature Granulocytes % (auto) 1.8 %; Lymphocytes # (auto) 1.26 K/uL (1.2-3.4); Lymphocytes % (auto) 10.3 %; Mean Corpuscular Hemoglobin 29.7 pg (25.0-34.0); Mean Corpuscular Hgb Conc 35.2 g/dL (32.0-36.0); Mean Corpuscular Volume 84.5 fL (80.0-100.0); Mean Platelet Volume 9.1 fL (9.4-12.4); Monocytes # (auto) 1.26 K/uL (0.11-0.59); Monocytes % (auto) 10.3 %; Neutrophils # (auto) 9.31 K/uL (1.40-6.50); Neutrophils % (auto) 75.8 %; Platelet Count 345 K/uL (130-400); RDW Coefficient of Variation 12.7 % (11.5-14.5); RDW Standard Deviation 38.7 fL (36.4-46.3); Red Blood Count 3.16 M/uL (4.70-6.10); White Blood Count 12.28 K/ul (4.8-10.8)
[2022-08-30 06:26] LABS: Anion Gap 6 (3-11); BUN Creatinine Ratio 16.9 (10-20); Blood Urea Nitrogen 10 mg/dl (6-23); Calcium 8.2 mg/dl (8.5-10.1); Carbon Dioxide 27 mmol/L (21-32); Chloride 104 mmol/L (98-107); Creatinine Clr Calc Pharmacy 186.6 ml/min; Est GFR (African American) > 150.0 ml/min; Est GFR (Non-African American) 139.7 ml/min; Glucose 109 mg/dl (70-99(Fasting)); Potassium 3.5 mmol/L (3.5-5.1); Sodium 137 mmol/L (136-145)
[2022-08-30] MEDS: D5W AND 1/2NSS + 20MEQ KCL 20 MEQ/1,000 ML BAG IV SCH ×2 (06:49→16:21)
[2022-08-30] MEDS: CLINDAMYCIN/D5W 600 MG/50 ML BAG IV SCH (07:43)
[2022-08-30] MEDS: MULTIVITAMIN TAB PO SCH (07:43)
--- NOTE | 2022-08-30 09:00 | Surgery Progress Note ---
Date of Service August 30, 2022 Assessment & Plan (1) H/O abdominal surgery: Plan: Appears to have a mild wound infection. Lower pole of the incision was opened up irrigated and packed with quarter inch plain packing. We will change tomorrow. We will change his antibiotics from clindamycin to Cipro and Flagyl. Follow his white blood cell count and temp. We will increase the frequency of his Dilaudid. I do believe his bowel function is improving. Suspect he still has a mild ileus in the face of a very tight abdomen after primary closure. We will need to consider some IV nutrition if things do not improve in the next 24 hours. Admission and Anticipated Discharge Date Admission Date: August 24, 2022 Subjective Patient seen. States he had a bad night. He states the IV pain medication does help but it wears off before his next dose is due. His pain is in the lower pole of the incision. He did have 2 bowel movements over the last 24 hours although he still has "abdominal pressure" as well as some mild nausea. Physical Exam Physical Exam: Alert. No acute distress Abdomen has mild distention. We took down the wound VAC and he has small amount of purulent fluid at the lower pole of his incision. Minimal surrounding e rythema. He is tender at the lower pole. VIDYA drain with serous fluid Results & Data ([facility]) Vital Signs (Past 12 Hours) Vital Signs Temp Pulse Resp BP Pulse Ox O2 Del Method 08/30/22 07:13 37.5 C 83 16 120/80 98 Room Air 08/30/22 04:54 36.4 C L 92 H 20 141/90 H 97 Room Air 08/30/22 01:00 36.7 C 88 18 122/74 97 Room Air 08/29/22 21:07 37.0 C 88 16 110/70 97 Room Air PG Care Time/CCT Total # of Minutes Spent Total Time Spent with Patient: Total time spent is greater than 50% in coordination of care (as documented) at patient's floor/unit and/or counseling patient: Coding Level of Care Code 65201 Post Operative Follow-Up Diagnoses H/O abdominal surgery Z98.890
[2022-08-30] MEDS: CIPROFLOXACIN / D5W 400 MG/200 ML BAG IV SCH ×2 (10:18→21:16)
[2022-08-30] MEDS: metroNIDAZOLE 500 MG/100 ML BAG IV SCH ×2 (10:18→16:21)
--- NOTE | 2022-08-30 12:50 | Surgery Progress Note ---
Date of Service August 30, 2022 Assessment & Plan (1) H/O abdominal surgery: Plan: Bowel function is slowly returning. Per Gen Surg, Clears again today, will add IV nutrition tomorrow if unable to advance diet. Patient's overnight pain and leukocytosis likely related to mild wound infection. Small portion of the incision was opened and irrigated, packed with 1/4" neugauze. Dressed with 4x4/tape. Expect saturation of outer dressing- change as needed. I will change packing tomorrow with possible irrigation of cavity. Can do single layer of xeroform to remaining incision. Patient must remain in abd binder until 6 weeks postop Admission and Anticipated Discharge Date Admission Date: August 24, 2022 Subjective Patient is seen today with Gen Surg. He complains of worsening discomfort overnight, only had temporary pain control with IV pain meds. Doing well on clears, no nausea but has persistent feeling of intraabdominal pressure. WBC slowly trending down but remains elevated. Physical Exam Physical Exam: wound vac with purulent output and foam saturated at lower pole. removed. superior portion of incision CDI. umbilicus viable. inferior portion of incision with two small catrina of separation, purulent, foul smelling drainage. mild erythema of the surrounding soft tissue. Results & Data ([facility]) Vital Signs (Past 12 Hours) Vital Signs Temp Pulse Resp BP Pulse Ox O2 Del Method 08/30/22 07:13 37.5 C 83 16 120/80 98 Room Air 08/30/22 04:54 36.4 C L 92 H 20 141/90 H 97 Room Air 08/30/22 01:00 36.7 C 88 18 122/74 97 Room Air PG Care Time/CCT Total # of Minutes Spent Total Time Spent with Patient: Total time spent is greater than 50% in coordination of care (as documented) at patient's floor/unit and/or counseling patient: Coding Level of Care Code 56731 Post Operative Follow-Up Diagnoses H/O abdominal surgery Z98.890
[2022-08-30] MEDS: SODIUM CHLORIDE 0.9% 1000ML 1,000 ML IV SCH (14:19)
[2022-08-30] MEDS: PROMETHAZINE HCL 12.5 MG in SODIUM CHLORIDE 0.9% 50 ML IV PRN (21:29)
[2022-08-30] MEDS: LORazepam 0.5 MG TAB PO PRN (23:34)
[2022-08-31] MEDS: metroNIDAZOLE 500 MG/100 ML BAG IV SCH ×3 (01:30→17:47)
[2022-08-31] MEDS: HYDROmorphone INJ 0.5 MG/0.5 ML SYR IV PRN ×7 (01:31→15:38)
[2022-08-31] MEDS: KETOROLAC TROMETHAMINE 15 MG/ML VIAL IV SCH (03:41)
[2022-08-31] MEDS: D5W AND 1/2NSS + 20MEQ KCL 20 MEQ/1,000 ML BAG IV SCH (06:15)
[2022-08-31] MEDS: oxyCODONE/ACETAMINOPHEN 5mg/325mg TAB PO PRN (08:03)
[2022-08-31] MEDS: MULTIVITAMIN TAB PO SCH (08:03)
[2022-08-31] MEDS: CIPROFLOXACIN / D5W 400 MG/200 ML BAG IV SCH ×2 (08:04→20:09)
--- NOTE | 2022-08-31 09:09 | Surgery Progress Note ---
Date of Service August 31, 2022 Assessment & Plan (1) H/O abdominal surgery: Plan: Continue to change packing daily in infected abdominal wound. Single layer of xeroform to intact incision. Gen Surg to get stat CT today, pending results will consider PICC vs extra boots to increase nutrition Will check new CBC/BMP Admission and Anticipated Discharge Date Admission Date: August 24, 2022 Subjective Patient is seen today with Gen Surg. He appears the same as yesterday- pain is challenging to control but does respond to IV pain medication. He continues on clear liquids with minimal nausea, but does complain of bloating and pressure in his abdomen. He had one loose, small BM this AM. He has not been wearing his abd binder due to discomfort. Physical Exam Physical Exam: T 37.7 abd dressing reomved. purulent drainage from opening lower incision. packing removed and new packing placed. xeroform to intact incision and ABD gauze over entire incision ABD binder gently placed drain was recently emptied- scant sang output in drain Results & Data ([facility]) Vital Signs (Past 12 Hours) Vital Signs Temp Pulse Resp BP Pulse Ox O2 Del Method 08/31/22 07:31 37.7 C H 89 16 128/83 96 Room Air 08/30/22 21:09 37.2 C 90 16 127/87 99 Room Air PG Care Time/CCT Total # of Minutes Spent Total Time Spent with Patient: Total time spent is greater than 50% in coordination of care (as documented) at patient's floor/unit and/or counseling patient: Coding Level of Care Code 87234 Post Operative Follow-Up Diagnoses H/O abdominal surgery Z98.890
[2022-08-31 09:51] LABS: Hematocrit (blood only) 28.5 % (42.0-52.0); Hemoglobin 9.8 g/dl (14.0-18.0); Mean Corpuscular Hgb Conc 34.4 g/dL (32.0-36.0); Mean Corpuscular Volume 84.3 fL (80.0-100.0); Mean Platelet Volume 8.7 fL (9.4-12.4); Platelet Count 462 K/uL (130-400); RDW Coefficient of Variation 13.3 % (11.5-14.5); RDW Standard Deviation 41.1 fL (36.4-46.3); Red Blood Count 3.38 M/uL (4.70-6.10); White Blood Count 12.79 K/ul (4.8-10.8)
[2022-08-31 09:53] LABS: Anion Gap 7 (3-11); BUN Creatinine Ratio 13.4 (10-20); Blood Urea Nitrogen 9 mg/dl (6-23); Calcium 8.4 mg/dl (8.5-10.1); Carbon Dioxide 26 mmol/L (21-32); Chloride 104 mmol/L (98-107); Creatinine Clr Calc Pharmacy 164.4 ml/min; Est GFR (African American) > 150.0 ml/min; Est GFR (Non-African American) 132.6 ml/min; Glucose 112 mg/dl (70-99(Fasting)); Potassium 3.5 mmol/L (3.5-5.1); Sodium 137 mmol/L (136-145)
[2022-08-31 10:20] LABS: Basophils # (auto) 0.05 K/uL (0-0.2); Basophils % (auto) 0.4 %; Eosinophils # (auto) 0.22 K/uL (0-0.50); Eosinophils % (auto) 1.7 %; Immature Granulocytes % (auto) 2.3 %; Lymphocytes # (auto) 1.11 K/uL (1.2-3.4); Lymphocytes % (auto) 8.7 %; Monocytes # (auto) 1.11 K/uL (0.11-0.59); Monocytes % (auto) 8.7 %; Neutrophils % (auto) 78.2 %; Polychromasia 1+
[2022-08-31] MEDS ORDERED: OPTIRAY 320 500ml IV ONE (11:59)
--- NOTE | 2022-08-31 12:57 | CT Scan Report ---
CT angio abdomen pelvis w con CT DOSE: 589.76 mGycm CLINICAL HISTORY: Diffuse abdominal pain. Recent surgery. TECHNIQUE: Multiaxial CT images of the abdomen and pelvis were performed following the intravenous ad ministration of 112 cc of Optiray 320 to evaluate the major dural structures. Sagittal and coronal ma ximum intensity projection images were also obtained. A dose lowering technique was utilized adherin g to the principles of ALARA. COMPARISON STUDY: Abdomen CT 07/08/2019 and 02/16/[address] FINDINGS: Mild dependent change at the lung bases and a trace left pleural effusion. Postoperative ch anges again noted within the proximal left femur. No acute fractures identified. Evidence for recent midline incision with mild subcutaneous edema and scattered foci of subcutaneous gas at the incision site. Best seen on image 321 within the right rectus abdominis sheath there is a 23 x 12 mm periphera l enhancing hypodense collection. This contains a punctate focus of gas. This is nonspecific but coul d represent a postoperative seroma, old hematoma, or small developing abscess. The liver, gallbladder , spleen, adrenal glands, and pancreas unremarkable. The kidneys enhance normally. No hydronephrosis. Mild bilateral perinephric edema is noted. No retroperitoneal lymphadenopathy. No pelvic lymphadenop athy. The bladder contains a punctate focus of gas. This is likely due to recent catheterization. Pos toperative changes consistent with a subtotal colectomy with a left lower quadrant ileocolonic anasto mosis. There is a surgical drain along the left side of the abdomen. Interval small bowel anastomosis within the right lower quadrant. Multiple dilated and fluid-filled loops of proximal to mid small ishan wel. There is a transition point within the right lower quadrant near the anastomotic suture. Therefo re, this consistent with a high-grade small bowel obstruction. There were multiple additional dilated and fluid-filled loops of small bowel in the left side the abdomen with an additional transition poi nt within the thickened loops of small bowel within the left lower quadrant adjacent to the surgical drain. Given the 2 separate transition points this raises the possibility of a closed loop obstructio n within the mid to distal bowel. Heterogeneous focus within the anterior pelvis deep to the abdomina l wall measuring 4.9 x 3.0 cm on image 380. This could represent decompressed small bowel loops or po ssibly a postoperative hematoma. There are 2 punctate foci of extrapleural gas adjacent to this heter ogeneous area which favors postoperative change. There is a 2.1 cm focus of gas within the anterior a bdomen on image 202 deep to the incision site. This is not clearly within a bowel loop and may repres ent a focus of extraluminal gas. Again, this is nonspecific and could be due to the recent postoperat eren change or developing abscess. R the small bowel loops are thickened. The abdominal aorta, celiac artery, superior mesenteric artery, inferior mesenteric artery, iliac art eries, and bilateral renal arteries are widely patent. No evidence for dissection. No active arterial extravasation. There are 2 right renal arteries noted. There is a duplicated IVC. IMPRESSION: 1. Multiple dilated and fluid-filled loops of proximal to mid small bowel. There is a transition poin t within the right lower quadrant near the anastomotic suture. Therefore, this consistent with a high -grade small bowel obstruction. 2. There are multiple additional dilated and fluid-filled loops of small bowel in the left side of th e abdomen with an additional transition point within the thickened loops of small bowel within the le ft lower quadrant adjacent to the surgical drain. Given the 2 separate transition points this raises the possibility of a closed loop obstruction within the mid to distal bowel. 3. Multiple thickened loops of small bowel which could represent a nonspecific enteritis or peritonit is. 4. There are few heterogeneous and gas-filled collections within the anterior abdomen as described ab ove. These are nonspecific but could represent postoperative fluid collections/hematomas. Small devel oping abscesses could also have a similar appearance. These bear watching on future examinations. 5. Additional findings as described above. ACT 112: Negative or not required by law. Electronically signed by: Amandeep Vasques M.D. 08/31/2022 12:56 PM
[2022-08-31] MEDS ORDERED: TPN/PPN CONSULT PHARMACY PRN (13:41)
[2022-08-31] MEDS ORDERED: TPN/PPN CONSULT PHARMACY STA (13:45)
[2022-08-31] MEDS ORDERED: DEXTROSE 10% 1,000 ML IV PRN (14:35)
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
[2022-08-31] MEDS ORDERED: LORazepam 2 MG/1 ML VIAL IV ONE (14:43)
--- NOTE | 2022-08-31 14:52 | Surgery Progress Note ---
Date of Service August 31, 2022 Assessment & Plan (1) H/O abdominal surgery: Plan: reviewed ct scan with Dr. Goncalves. dilated loops of bowel, thickening ( expected)... he recommends we try repeating with some water soluble oral contrast. he does not appreciate a closed loop obstruction. pt's lactic acid level was normal. will place ngt and give some oral contrast. re-operation would be extremely difficult and would only do as last resort. will obtain PICC line and start TPN as well. Admission and Anticipated Discharge Date Admission Date: August 24, 2022 Subjective pt continues to have diffuse waves of abdominal pain. no emesis today. no real change since this morning. Physical Exam Physical Exam: alert. intermittent crampy/colicky abdominal discomfort. Gastrointestinal (Abdomen): soft. diffuse tenderness. lower pole of incision still putting out purulent drainage. Results & Data ([facility]) Vital Signs (Past 12 Hours) Vital Signs Temp Pulse Resp BP Pulse Ox O2 Del Method 08/31/22 07:31 37.7 C H 89 16 128/83 96 Room Air PG Care Time/CCT Total # of Minutes Spent Total Time Spent with Patient: Total time spent is greater than 50% in coordination of care (as documented) at patient's floor/unit and/or counseling patient: Coding Level of Care Code 24025 Post Operative Follow-Up Diagnoses H/O abdominal surgery Z98.890
[2022-08-31 14:55] LABS: Magnesium 1.8 mg/dl (1.7-2.4); Phosphorus 3.3 mg/dl (2.5-4.9)
[2022-08-31] MEDS ORDERED: NALOXONE HCL 0.4 MG/1 ML VIAL/CARP IV PRN (15:17)
[2022-08-31] MEDS ORDERED: HYDROmorphone PCA 30 MG/30 ML IV PRN (15:17)
[2022-08-31] MEDS ORDERED: FAT EMULSION IV SCH (16:00)
[2022-08-31] MEDS ORDERED: CLINOLIPID 20% IV FAT EMULSION 250 ML IV SCH ×2 (16:00)
[2022-08-31] MEDS ORDERED: CLINOLIPID 20% IV SCH (16:00)
[2022-08-31] MEDS ORDERED: [UNRECOGNIZED DRUG - OTHER] IV SCH (16:00)
[2022-08-31] MEDS ORDERED: PERIPHERAL TPN IV SCH (16:00)
[2022-08-31] MEDS: SODIUM CHLORIDE 0.9% 1000ML 1,000 ML IV SCH (19:29)
--- NOTE | 2022-08-31 21:13 | CT Scan Report ---
CT OF THE ABDOMEN AND PELVIS WITH ORAL CONTRAST CLINICAL HISTORY: Abdominal pain, recent surgery. COMPARISON STUDY: CT of the abdomen and pelvis performed earlier today. TECHNIQUE: Axial images of the abdomen and pelvis were obtained without IV contrast. Water-soluble co ntrast was administered via the nasogastric tube. Initial study was performed 2 hours following contr ast administration. Delayed CT was also obtained 4 hours following contrast administration. Automated exposure control was utilized for the study. A dose lowering technique was utilized adhering to the principles of ALARA. FINDINGS: No pneumatosis or portal venous gas is present. Interval placement of a nasogastric tube is noted. The tip is within the body of the stomach. Multiple loops of moderately dilated small bowel a re present. Small bowel dilatation has mildly improved since CT performed earlier today. This could be related to nasogastric tube placement. Contrast within the collecting systems, ureters and bladder from recent contrast-enhanced CT is noted. There are postoperative findings consistent with previous subtotal colectomy. Multiple small bowel anastomoses are noted. Oral contrast reaches the mid small bowel. The contrast extends beyond the most proximal small bowel anastomosis. There are several loops of mildly dilated fluid-filled small bowel distal to this site. The distal small bowel is relatively decompressed. A well-defined transition point is not identified on this examination. Small fluid and gas containing collections are better depicted on contrast enhanced CT performed earlier today. Surg ical drain is in place. Mesenteric stranding a trace amount of ascites is similar to prior CT. There is no hydronephrosis. Unenhanced images of the spleen, adrenal glands and pancreas are unremarkable. IMPRESSION: 1. Multiple loops of moderately dilated small bowel, as described above. Mild improvement in proximal small bowel dilatation since prior CT although this could be related to nasogastric tube insertion. Despite delayed scanning, oral contrast only reached the mid small bowel. No well-defined transition point identified however the distal small bowel is relatively decompressed. The findings favor a part ial small bowel obstruction although a postoperative ileus could appear similar. 2. Postoperative findings, as described above. No change in multiple small fluid and gas containing c ollection, better depicted on prior contrast enhanced exam. ACT 112: Negative or not required by law. Electronically signed by: En Goncalves M.D. 08/31/2022 9:11 PM
[2022-08-31] MEDS ORDERED: STOP CLINOLIPID ONE (21:59)
[2022-09-01] MEDS: metroNIDAZOLE 500 MG/100 ML BAG IV SCH ×3 (01:53→18:17)
[2022-09-01] MEDS ORDERED: STOP CLINOLIPID ONE ×2 (04:00→22:00)
[2022-09-01 06:54] LABS: Hematocrit (blood only) 29.8 % (42.0-52.0); Hemoglobin 10.1 g/dl (14.0-18.0); Mean Corpuscular Hemoglobin 29.5 pg (25.0-34.0); Mean Corpuscular Hgb Conc 33.9 g/dL (32.0-36.0); Mean Corpuscular Volume 87.1 fL (80.0-100.0); Mean Platelet Volume 8.7 fL (9.4-12.4); Platelet Count 514 K/uL (130-400); RDW Coefficient of Variation 13.5 % (11.5-14.5); RDW Standard Deviation 42.3 fL (36.4-46.3); Red Blood Count 3.42 M/uL (4.70-6.10)
[2022-09-01 07:08] LABS: Anion Gap 5 (3-11); BUN Creatinine Ratio 9.7 (10-20); Blood Urea Nitrogen 6 mg/dl (6-23); Calcium 8.7 mg/dl (8.5-10.1); Carbon Dioxide 30 mmol/L (21-32); Chloride 103 mmol/L (98-107); Creatinine Clr Calc Pharmacy 177.6 ml/min; Est GFR (African American) > 150.0 ml/min; Est GFR (Non-African American) 136.9 ml/min; Glucose 111 mg/dl (70-99(Fasting)); Phosphorus 3.7 mg/dl (2.5-4.9); Potassium 3.9 mmol/L (3.5-5.1); Sodium 138 mmol/L (136-145)
[2022-09-01 07:22] LABS: Basophils # (auto) 0.07 K/uL (0-0.2); Basophils % (auto) 0.4 %; Eosinophils # (auto) 0.32 K/uL (0-0.50); Immature Granulocytes # (auto) 0.77 K/uL (0.01-0.20); Immature Granulocytes % (auto) 4.7 %; Lymphocytes # (auto) 1.95 K/uL (1.2-3.4); Monocytes # (auto) 1.24 K/uL (0.11-0.59); Monocytes % (auto) 7.6 %; Neutrophils # (auto) 11.95 K/uL (1.40-6.50); Neutrophils % (auto) 73.3 %; Polychromasia 1+
[2022-09-01] MEDS: CIPROFLOXACIN / D5W 400 MG/200 ML BAG IV SCH ×2 (09:05→22:43)
[2022-09-01] MEDS: MULTIVITAMIN TAB PO SCH (09:05)
--- NOTE | 2022-09-01 10:37 | XRay Report ---
KUB CLINICAL HISTORY: Small bowel obstruction. COMPARISON STUDY: CT of the abdomen and pelvis August 31, 2022 at 6:32 PM. FINDINGS: Tip of nasogastric tube is within the body of the stomach. Left abdominal surgical drain re ying in place. Left femoral internal fixation. Small bowel anastomoses are noted. There is residual oral contrast within multiple jejunal loops. A small amount of contrast within right-sided abdominal small bowel loops is also noted. There has been slight progression of oral contrast since prior CT. H owever, no contrast is noted within the remaining portion of the colon or rectum. Moderate dilatation of proximal small bowel loops is similar to prior CT. IMPRESSION: 1. No significant change in moderate small bowel dilatation with minimal progression of oral contrast . The findings suggest a persistent small bowel obstruction. 2. Tip of nasogastric tube within the body of the stomach. ACT 112: Negative or not required by law. Electronically signed by: En Goncalves M.D. 09/01/2022 10:36 AM
--- NOTE | 2022-09-01 10:44 | Surgery Progress Note ---
Date of Service September 01, 2022 Assessment & Plan (1) H/O abdominal surgery: Plan: Culture of purulent drainage obtained today. Will continue to change packing daily. KUB this AM consistent with SBO. no significant change from yesterday. NGT/TPN per Gen Surg Admission and Anticipated Discharge Date Admission Date: August 24, 2022 Supervising Physician Co-Signing Physician Notes I personally saw and examined this patient and agree with the assessment and plan. CT findings noted. On abx, wound open distally and being packed. Continue with local care. Subjective Yuce is resting in bed, feels much better today. NGT was placed, 1900ml output. CT's performed yesterday suggestive of pSBO vs postoperative ileus. WBC elevated this AM to 16.30. He was afebrile overnight. Physical Exam Physical Exam: patient was not wearing abd binder. dressings removed. gauze saturated with purulent drainage. culture obtained. wound irrigated with NSS, re-packed with 1/4" neugauze single layer of xeroform, abd gauze/tape to incision. binder re-placed VIDYA drain with scant output. appears to have another clot at insertion site. drain stripped Results & Data ([facility]) Vital Signs (Past 12 Hours) Vital Signs Temp Pulse Resp BP Pulse Ox O2 Del Method 09/01/22 07:43 37.5 C 70 16 138/84 100 Room Air PG Care Time/CCT Total # of Minutes Spent Total Time Spent with Patient: Total time spent is greater than 50% in coordination of care (as documented) at patient's floor/unit and/or counseling patient: Coding Level of Care Code 43925 Post Operative Follow-Up Diagnoses H/O abdominal surgery Z98.890
--- NOTE | 2022-09-01 11:20 | Surgery Progress Note ---
Date of Service September 01, 2022 Assessment & Plan (1) H/O abdominal surgery: Plan: Some clinical improvement primarily likely from the NG tube placement. No evidence of a closed-loop obstruction. Severe ileus versus small bowel obstruction. Hostile abdomen and would only proceed with reexploration if no other option. My plan is to keep him n.p.o. with TPN NG tube decompression until hopefully he resumes his bowel function. We will continue to monitor his white blood cell count temperature curve and wound drainage. Admission and Anticipated Discharge Date Admission Date: August 24, 2022 Subjective Patient seen. Feeling much better than yesterday. His abdominal pain appears to have resolved. No further bowel movements but he is getting a fair amount of feelings of peristalsis. Nausea is much improved as well. Physical Exam Physical Exam: Alert. No acute distress Abdomen is soft. Tenderness much improved. Midline dressing changed by plastics today. VIDYA still with small amount of serous output Results & Data ([facility]) Vital Signs (Past 12 Hours) Vital Signs Temp Pulse Resp BP Pulse Ox O2 Del Method 09/01/22 07:43 37.5 C 70 16 138/84 100 Room Air PG Care Time/CCT Total # of Minutes Spent Total Time Spent with Patient: Total time spent is greater than 50% in coordination of care (as documented) at patient's floor/unit and/or counseling patient: Coding Level of Care Code 73247 Post Operative Follow-Up Diagnoses H/O abdominal surgery Z98.890
--- NOTE | 2022-09-01 13:59 | XRay Report ---
XR chest 1V portable HISTORY: 27 years-old Male PICC tip placement status post placement of a right-sided PICC COMPARISON: Chest radiograph 08/23/2018 TECHNIQUE: AP view of the chest FINDINGS: Enteric tube distal tip projects over the gastric body. A right-sided PICC distal tip projects over t he right atrium. No pneumothorax, pleural effusion, airspace consolidation or overt pulmonary edema. Mild right hemidiaphragmatic elevation. Normal size of the cardiac silhouette. IMPRESSION: 1. Right-sided PICC and enteric tube placement as above. 2. No pneumothorax. ACT 112: Negative or not required by law. The above report was generated using voice recognition software. It may contain grammatical, syntax o r spelling errors. Electronically signed by: Juanito Crouch M.D. 09/01/2022 1:58 PM
[2022-09-01] MEDS ORDERED: [UNRECOGNIZED DRUG - OTHER] IV SCH (16:00)
[2022-09-01] MEDS ORDERED: CLINOLIPID 20% IV FAT EMULSION 250 ML IV SCH (16:00)
[2022-09-01] MEDS ORDERED: PERIPHERAL TPN IV SCH (16:00)
[2022-09-01] MEDS: LORazepam 0.5 MG TAB PO PRN (19:53)
[2022-09-02] MEDS: metroNIDAZOLE 500 MG/100 ML BAG IV SCH ×3 (00:45→17:46)
[2022-09-02 06:47] LABS: Hematocrit (blood only) 31.6 % (42.0-52.0); Hemoglobin 10.6 g/dl (14.0-18.0); Mean Corpuscular Hemoglobin 29.2 pg (25.0-34.0); Mean Corpuscular Hgb Conc 33.5 g/dL (32.0-36.0); Mean Corpuscular Volume 87.1 fL (80.0-100.0); Mean Platelet Volume 8.5 fL (9.4-12.4); Platelet Count 606 K/uL (130-400); RDW Coefficient of Variation 13.5 % (11.5-14.5); RDW Standard Deviation 43.6 fL (36.4-46.3); Red Blood Count 3.63 M/uL (4.70-6.10); White Blood Count 14.89 K/ul (4.8-10.8)
[2022-09-02 07:08] LABS: Anion Gap 5 (3-11); BUN Creatinine Ratio 20.4 (10-20); Blood Urea Nitrogen 11 mg/dl (6-23); Calcium 8.9 mg/dl (8.5-10.1); Carbon Dioxide 29 mmol/L (21-32); Chloride 103 mmol/L (98-107); Creatinine Clr Calc Pharmacy 203.9 ml/min; Est GFR (African American) > 150.0 ml/min; Est GFR (Non-African American) 144.9 ml/min; Glucose 113 mg/dl (70-99(Fasting)); Magnesium 2.2 mg/dl (1.7-2.4); Phosphorus 3.3 mg/dl (2.5-4.9); Potassium 4.1 mmol/L (3.5-5.1); Sodium 137 mmol/L (136-145)
[2022-09-02 07:12] LABS: ALC (manual) 1.19 K/uL (1.2-3.4); ANC (manual) 12.36 K/uL (1.4-6.5); Eosinophils % (manual) 2 %; Lymphocytes # (manual) 1.19 K/uL (1.2-3.4); Lymphocytes % (manual) 8 %; Metamyelocytes # (manual) 0.15 K/uL (0-0); Metamyelocytes % (manual) 1 %; Monocytes % (manual) 4 %; Myelocytes % (manual) 2 %; Neutrophils # (manual) 12.36 K/uL (1.40-6.50); Neutrophils % (manual) 83 %; Polychromasia 1+
--- NOTE | 2022-09-02 08:28 | Surgery Progress Note ---
Date of Service September 02, 2022 Assessment & Plan (1) H/O abdominal surgery: Plan: Clinically doing okay. Still dealing with either small bowel obstruction or severe ileus. Continue NG tube decompression as well as TPN. He is feeling better so is going to try ambulating more today. We will repeat KUB tomorrow to see if there is any progression of contrast. DC LINE ORDERING CLINICIAN. Admission and Anticipated Discharge Date Admission Date: August 24, 2022 Subjective Patient seen. Overall feeling okay. Getting his energy back. Denying abdominal pain. No flatus or bowel movements yet. Physical Exam Physical Exam: Alert. No acute distress VIDYA drain with scant amount of serosanguineous output. Lower pole of the incision still draining. Results & Data ([facility]) Vital Signs (Past 12 Hours) Vital Signs Temp Pulse Resp BP Pulse Ox O2 Del Method 09/02/22 07:52 36.8 C 90 16 117/74 98 Room Air PG Care Time/CCT Total # of Minutes Spent Total Time Spent with Patient: Total time spent is greater than 50% in coordination of care (as documented) at patient's floor/unit and/or counseling patient: Coding Level of Care Code 22234 Post Operative Follow-Up Diagnoses H/O abdominal surgery Z98.890
[2022-09-02] MEDS: CIPROFLOXACIN / D5W 400 MG/200 ML BAG IV SCH ×2 (08:56→20:19)
--- NOTE | 2022-09-02 10:24 | Surgery Progress Note ---
Date of Service September 02, 2022 Assessment & Plan (1) H/O abdominal surgery: Plan: Will continue to pack wound daily, Xeroform to healed portion of incision. Plan for bedside irrigation with VASHE tomorrow Will watch for cx results ABD binder and ambulation encouraged Admission and Anticipated Discharge Date Admission Date: August 24, 2022 Subjective Patient resting in bed. Appears better than yesterday, reports decreased pain. He has been ambulating the hallways. He is wearing his abd binder except for sleep. WBC down 16-> 14. Afebrile. Wound cx pending. Physical Exam Physical Exam: Dressings removed. ABD gauze saturated with purlent output from open area inferior pole of incision. Superior portion of incision remains intact, healthy. Abd softer, no erythema of the soft tissue. Wound re-packed and fresh dressing placed. Results & Data ([facility]) Vital Signs (Past 12 Hours) Vital Signs Temp Pulse Resp BP Pulse Ox O2 Del Method 09/02/22 07:52 36.8 C 90 16 117/74 98 Room Air PG Care Time/CCT Total # of Minutes Spent Total Time Spent with Patient: Total time spent is greater than 50% in coordination of care (as documented) at patient's floor/unit and/or counseling patient: Coding Level of Care Code 33761 Post Operative Follow-Up Diagnoses H/O abdominal surgery Z98.890
[2022-09-02] MEDS: MULTIVITAMIN TAB PO SCH (10:32)
[2022-09-02] MEDS: SODIUM CHLORIDE 0.9% 1000ML 1,000 ML IV SCH ×2 (10:59→17:03)
[2022-09-02] MEDS: HYDROmorphone INJ 0.5 MG/0.5 ML SYR IV PRN ×4 (11:10→22:18)
[2022-09-02] MEDS ORDERED: CENTRAL TPN IV SCH (16:00)
[2022-09-02] MEDS ORDERED: [UNRECOGNIZED DRUG - OTHER] IV SCH (16:00)
[2022-09-02] MEDS ORDERED: CLINOLIPID 20% IV FAT EMULSION 250 ML IV SCH (16:00)
[2022-09-02] MEDS: KETOROLAC TROMETHAMINE 15 MG/ML VIAL IV PRN (18:35)
[2022-09-02] MEDS ORDERED: STOP CLINOLIPID SCH (22:00)
[2022-09-03] MEDS: HYDROmorphone INJ 0.5 MG/0.5 ML SYR IV PRN ×8 (00:34→23:46)
[2022-09-03] MEDS: KETOROLAC TROMETHAMINE 15 MG/ML VIAL IV PRN ×3 (00:34→19:33)
[2022-09-03] MEDS: metroNIDAZOLE 500 MG/100 ML BAG IV SCH ×4 (00:34→23:41)
[2022-09-03] MEDS ORDERED: SODIUM CHLORIDE 0.9% 1000ML 1,000 ML IV ONE (06:32)
[2022-09-03 06:34] LABS: Hematocrit (blood only) 32.6 % (42.0-52.0); Mean Corpuscular Hemoglobin 28.7 pg (25.0-34.0); Mean Corpuscular Hgb Conc 33.7 g/dL (32.0-36.0); Mean Corpuscular Volume 85.1 fL (80.0-100.0); Mean Platelet Volume 8.7 fL (9.4-12.4); Platelet Count 722 K/uL (130-400); RDW Coefficient of Variation 13.3 % (11.5-14.5); RDW Standard Deviation 41.2 fL (36.4-46.3); Red Blood Count 3.83 M/uL (4.70-6.10); White Blood Count 17.06 K/ul (4.8-10.8)
--- NOTE | 2022-09-03 06:36 | Communication Note ---
Date of Service: September 03, 2022 This provider was notified that patient previously had clear urine but now his urine had changed to tea colored. The patient does not have a Fajardo catheter in and therefore I could not examine the urine. Physician employee relations assistant from the plastic surgery service was notified who had ordered a CMP and urinalysis. This provider has also added a total CK level to his labs. The patient was visited at bedside and examined. The patient says he has no new complaints and does not feel any differently than what he did before. He denies any worsening abdominal pain or nausea or vomiting (he does have an NG tube in place). He denies any myalgias. He notes that when he urinated he did have tea colored urine but did not note any urinary symptoms such as dysuria or urinary hesitancy. On physical exam the patient does not have any tense muscle compartments in his arms or legs. He does have some tenderness to his abdomen but this is to be expected from his recent surgery. He has palpable pulses in all 4 extremities. The patient's medicines were reviewed and there are no obvious medicines that could cause his change in urine color other than perhaps Flagyl. I discussed with Dr. Singh and he notes that this change in urine color could be because the patient is somewhat intravascularly dry as he has had an NG tube and is only receiving TPN. He notes that we should give the patient a fluid bolus so I have ordered a 1000 cc bolus of normal saline solution. We will await laboratory results that have been ordered with further recommendations to follow.
[2022-09-03 07:01] LABS: ALC (manual) 2.39 K/uL (1.2-3.4); ANC (manual) 13.48 K/uL (1.4-6.5); Eosinophils # (manual) 0.17 K/uL (0-0.50); Eosinophils % (manual) 1 %; Lymphocytes # (manual) 2.39 K/uL (1.2-3.4); Lymphocytes % (manual) 14 %; Monocytes # (manual) 1.02 K/uL (0.11-0.59); Monocytes % (manual) 6 %; Neutrophils # (manual) 13.48 K/uL (1.40-6.50); Neutrophils % (manual) 79 %; RBC Morphology Unremarkable
[2022-09-03 07:05] LABS: Alanine Aminotransferase 30 U/L (7-52); Albumin Level 3.5 gm/dl (3.4-5.0); Alkaline Phosphatase 78 U/L (34-104); Anion Gap 7 (3-11); Aspartate Aminotransferase 34 U/L (13-39); BUN Creatinine Ratio 30.2 (10-20); Bilirubin,Total 0.5 mg/dl (0.2-1.0); Blood Urea Nitrogen 19 mg/dl (6-23); Carbon Dioxide 29 mmol/L (21-32); Chloride 103 mmol/L (98-107); Creatine Kinase 32 U/L (30-223); Creatinine Clr Calc Pharmacy 174.8 ml/min; Est GFR (African American) > 150.0 ml/min; Globulin 3.5 gm/dl (2.5-4.0); Glucose 121 mg/dl (70-99(Fasting)); Magnesium 2.2 mg/dl (1.7-2.4); Phosphorus 3.6 mg/dl (2.5-4.9); Sodium 139 mmol/L (136-145)
[2022-09-03 07:58] LABS: Appearance Urine Cloudy (Clear); Bacteria Urine Automated Negative (Negative); Bilirubin Urine Negative (Negative); Blood Urine Negative (Negative); Cast Urine Automated 0 /lpf (0-5); Color Urine Dark Yellow; Glucose Urine UA Negative (Negative); Ketones Urine Negative (Negative); Leukocyte Esterase Urine Trace (Negative); Nitrite Urine Negative (Negative); RBC Urine Automated 0-4 /hpf (0-4); Specific Gravity Urine 1.023 (1.000-1.030); Urobilinogen Urine Negative (Negative); pH Urine >= 9.0 (4.5-7.5)
[2022-09-03 08:08] LABS: Protein Urine 1+ (Negative)
[2022-09-03] MEDS: MULTIVITAMIN TAB PO SCH (08:16)
[2022-09-03] MEDS: levoFLOXacin/D5W 750 MG/150 ML BAG IV SCH (08:52)
--- NOTE | 2022-09-03 09:04 | Surgery Progress Note ---
Date of Service September 03, 2022 Assessment & Plan (1) H/O abdominal surgery: Plan: Urine likely from volume contraction. BUN and creatinine slightly bumped. IV fluid bolus ordered. Today's KUB pending Continue TPN keep the NG tube over the weekend. If no improvement in bowel function by early next week we will need to make a decision regarding discharging home on TPN. May need a gastrostomy tube as well prior to discharge. Culture is back. We will change the Cipro to Levaquin [facility] covering for the weekend Admission and Anticipated Discharge Date Admission Date: August 24, 2022 Subjective Patient seen. His only change overnight was darkening of his urine. He continues to be comfortable from an abdominal standpoint. He does feel some bowel gurgling and peristalsis although no flatus or bowel movement yet. Physical Exam Physical Exam: Alert. No acute distress VIDYA drain with small amount of serosanguineous output Midline wound still draining inferiorly. Results & Data ([facility]) Vital Signs (Past 12 Hours) Vital Signs Temp Pulse Resp BP Pulse Ox O2 Del Method 09/03/22 08:18 36.7 C 94 H 18 122/78 97 Room Air 09/03/22 06:00 36.8 C 94 H 18 115/72 95 Room Air 09/02/22 21:18 37.3 C 89 20 116/75 96 Room Air PG Care Time/CCT Total # of Minutes Spent Total Time Spent with Patient: Total time spent is greater than 50% in coordination of care (as documented) at patient's floor/unit and/or counseling patient: Coding Level of Care Code 38818 Post Operative Follow-Up Diagnoses H/O abdominal surgery Z98.890
--- NOTE | 2022-09-03 09:33 | XRay Report ---
KUB HISTORY: Small bowel obstruction. Follow-up. COMPARISON: KUB 09/01/2022. FINDINGS: Nasogastric tube terminates in the stomach. Left-sided surgical drain is unchanged in posit ion. Persistent dilated loops of small bowel within the left side the abdomen measuring up to 5 cm in diameter. Slight progression of contrast into the large bowel is noted. There are suture material wi thin the right lower quadrant. Postoperative changes again noted within the left hip. No renal calcu li. No ureteral calculi. No pneumoperitoneum or pneumatosis. IMPRESSION: 1. Nasogastric tube terminates in the stomach. 2. Persistent small bowel dilatation with minimal progression of oral contrast. These findings sugges t a persistent small bowel obstruction. ACT 112: Negative or not required by law. Electronically signed by: Amandeep Vasques M.D. 09/03/2022 8:58 AM
--- NOTE | 2022-09-03 09:57 | Surgery Progress Note ---
Date of Service September 03, 2022 Assessment & Plan (1) H/O abdominal surgery: Plan: Abd wound irrigated with Vashe today. Continue daily packing changes. ABX were changed from Cipro/Flagyl to Levaquin for better coverage of grp B strep CMP reflects elevated BUN/CR. Dr. Singh ordered a fluid bolus trace leukocyte in urine- will be covered by Levaquin KUB from today with Persistent small bowel dilatation with minimal progression of oral contrast. These findings suggest a persistent small bowel obstruction. Patient with NGT and TPN. He is not passing flatus or BM yet. Admission and Anticipated Discharge Date Admission Date: August 24, 2022 Subjective Patient resting comfortably in bed. Pain is unchanged. Vitals stable. He went for KUB earlier this AM. Nurse called concerned about change in urine color, patient has no symptoms while voiding. Physical Exam Physical Exam: VIDYA drain with dark bloody output Abd dressings changed. ABD wound irrigated with VASHE. Packing placed Xeroform/ABD gauze to healed incision. ABD binder on patient Results & Data ([facility]) Vital Signs (Past 12 Hours) Vital Signs Temp Pulse Resp BP Pulse Ox O2 Del Method 09/03/22 08:18 36.7 C 94 H 18 122/78 97 Room Air 09/03/22 06:00 36.8 C 94 H 18 115/72 95 Room Air PG Care Time/CCT Total # of Minutes Spent Total Time Spent with Patient: Total time spent is greater than 50% in coordination of care (as documented) at patient's floor/unit and/or counseling patient: Coding Level of Care Code 37296 Post Operative Follow-Up Diagnoses H/O abdominal surgery Z98.890
[2022-09-03] MEDS: ACETAMINOPHEN 1,000 MG/100 ML VIAL IV PRN (13:20)
[2022-09-03] MEDS ORDERED: CLINOLIPID 20% IV FAT EMULSION 250 ML IV SCH (16:00)
[2022-09-03] MEDS ORDERED: [UNRECOGNIZED DRUG - OTHER] IV SCH (16:00)
[2022-09-03] MEDS ORDERED: CENTRAL TPN IV SCH (16:00)
[2022-09-03] MEDS: STOP CLINOLIPID SCH (23:02)
[2022-09-04] MEDS: KETOROLAC TROMETHAMINE 15 MG/ML VIAL IV PRN ×2 (03:13→19:29)
[2022-09-04] MEDS: HYDROmorphone INJ 0.5 MG/0.5 ML SYR IV PRN ×4 (06:11→17:49)
[2022-09-04 06:29] LABS: Hematocrit (blood only) 31.2 % (42.0-52.0); Hemoglobin 10.4 g/dl (14.0-18.0); Mean Corpuscular Hemoglobin 29.3 pg (25.0-34.0); Mean Corpuscular Hgb Conc 33.3 g/dL (32.0-36.0); Mean Corpuscular Volume 87.9 fL (80.0-100.0); Mean Platelet Volume 8.7 fL (9.4-12.4); Platelet Count 761 K/uL (130-400); RDW Coefficient of Variation 13.7 % (11.5-14.5); RDW Standard Deviation 43.8 fL (36.4-46.3); Red Blood Count 3.55 M/uL (4.70-6.10); White Blood Count 18.76 K/ul (4.8-10.8)
[2022-09-04 06:59] LABS: Basophils # (auto) 0.08 K/uL (0-0.2); Basophils % (auto) 0.4 %; Eosinophils # (auto) 0.17 K/uL (0-0.50); Eosinophils % (auto) 0.9 %; Immature Granulocytes % (auto) 5.3 %; Lymphocytes # (auto) 1.73 K/uL (1.2-3.4); Lymphocytes % (auto) 9.2 %; Monocytes # (auto) 1.43 K/uL (0.11-0.59); Monocytes % (auto) 7.6 %; Neutrophils # (auto) 14.35 K/uL (1.40-6.50); Neutrophils % (auto) 76.6 %
[2022-09-04] MEDS: metroNIDAZOLE 500 MG/100 ML BAG IV SCH ×3 (07:58→23:19)
[2022-09-04] MEDS: MULTIVITAMIN TAB PO SCH (08:16)
[2022-09-04 08:43] LABS: Anion Gap 7 (3-11); BUN Creatinine Ratio 31.3 (10-20); Blood Urea Nitrogen 20 mg/dl (6-23); Calcium 8.8 mg/dl (8.5-10.1); Carbon Dioxide 24 mmol/L (21-32); Chloride 109 mmol/L (98-107); Creatinine Clr Calc Pharmacy 172.1 ml/min; Est GFR (African American) > 150.0 ml/min; Est GFR (Non-African American) 135.1 ml/min; Glucose 118 mg/dl (70-99(Fasting)); Phosphorus 3.1 mg/dl (2.5-4.9); Potassium 4.2 mmol/L (3.5-5.1); Sodium 140 mmol/L (136-145)
[2022-09-04] MEDS: levoFLOXacin/D5W 750 MG/150 ML BAG IV SCH (09:48)
--- NOTE | 2022-09-04 09:58 | Surgery Progress Note ---
Date of Service September 04, 2022 Assessment & Plan (1) H/O abdominal surgery: Plan: con't ngt and TPN bowel function returning slowly ambulate good pain control con't abx Admission and Anticipated Discharge Date Admission Date: August 24, 2022 Subjective good pain control passing flatus small BM Review of Systems Constitutional: no fever and no chills Respiratory: no dyspnea Cardiovascular: no chest pain Gastrointestinal: + abdominal pain; no nausea and no vomiting Genitourinary: no dysuria Physical Exam Constitutional: WD/WN, vitals as above Neck: trachea midline Respiratory: normal respiratory effort, lungs clear to auscultation Cardiovascular: RRR, no murmur, no edema Gastrointestinal (Abdomen): Inspection/Auscultation: abdomen normal to inspection and normal bowel sounds; abdomen not distended Percussion/Palpation: + abdomen tender and abdomen soft; no guarding and abdomen not rigid Musculoskeletal: Head/Neck/Chest: normocephalic and head atraumatic Skin: no rashes, warm and dry Results & Data ([facility]) Vital Signs (Past 12 Hours) Vital Signs Temp Pulse Resp BP Pulse Ox O2 Del Method 09/04/22 07:45 36.7 C 90 18 120/70 96 Room Air
[2022-09-04] MEDS: ACETAMINOPHEN 1,000 MG/100 ML VIAL IV PRN ×2 (13:46→23:01)
[2022-09-04] MEDS ORDERED: CENTRAL TPN IV SCH (16:00)
[2022-09-04] MEDS ORDERED: [UNRECOGNIZED DRUG - OTHER] IV SCH (16:00)
[2022-09-04] MEDS ORDERED: CLINOLIPID 20% IV FAT EMULSION 250 ML IV SCH (16:00)
[2022-09-04] MEDS: STOP CLINOLIPID SCH (21:35)
[2022-09-05] MEDS: LORazepam 0.5 MG TAB PO PRN (00:01)
[2022-09-05] MEDS: KETOROLAC TROMETHAMINE 15 MG/ML VIAL IV PRN ×3 (00:28→17:07)
[2022-09-05 06:48] LABS: Anion Gap 6 (3-11); BUN Creatinine Ratio 38.7 (10-20); Blood Urea Nitrogen 24 mg/dl (6-23); Carbon Dioxide 27 mmol/L (21-32); Chloride 108 mmol/L (98-107); Creatinine Clr Calc Pharmacy 177.6 ml/min; Est GFR (African American) > 150.0 ml/min; Est GFR (Non-African American) 136.9 ml/min; Glucose 118 mg/dl (70-99(Fasting)); Magnesium 2.1 mg/dl (1.7-2.4); Phosphorus 3.3 mg/dl (2.5-4.9); Potassium 3.9 mmol/L (3.5-5.1); Sodium 141 mmol/L (136-145)
[2022-09-05] MEDS: metroNIDAZOLE 500 MG/100 ML BAG IV SCH ×2 (07:49→15:54)
[2022-09-05] MEDS: MULTIVITAMIN TAB PO SCH (07:49)
[2022-09-05] MEDS ORDERED: SODIUM CHLORIDE 0.9% 1000ML 2,000 ML IV ONE (08:28)
[2022-09-05] MEDS: levoFLOXacin/D5W 750 MG/150 ML BAG IV SCH (09:21)
--- NOTE | 2022-09-05 11:21 | Surgery Progress Note ---
Date of Service September 05, 2022 Assessment & Plan (1) H/O abdominal surgery: Plan: hopefully ngt out in AM per primary team ambulate good progress Present on Admission?: Yes Admission and Anticipated Discharge Date Admission Date: August 24, 2022 Subjective good progress had good BM pain controlled, avoid narcotic if possible afebrile Review of Systems Constitutional: no fever and no chills Respiratory: no cough and no dyspnea Cardiovascular: no chest pain Gastrointestinal: + abdominal pain; no nausea and no vomiting Genitourinary: no dysuria Physical Exam Constitutional: WD/WN, vitals as above Respiratory: normal respiratory effort, lungs clear to auscultation Cardiovascular: RRR, no murmur, no edema Gastrointestinal (Abdomen): Inspection/Auscultation: abdomen normal to inspection and normal bowel sounds; abdomen not distended Percussion/Palpation: + abdomen tender and abdomen soft; no guarding and abdomen not rigid Results & Data ([facility]) Vital Signs (Past 12 Hours) Vital Signs Temp Pulse Resp BP Pulse Ox O2 Del Method 09/05/22 07:15 36.7 C 82 18 136/79 98 Room Air
[2022-09-05] MEDS: HYDROmorphone INJ 0.5 MG/0.5 ML SYR IV PRN ×3 (12:02→19:05)
[2022-09-05] MEDS ORDERED: CENTRAL TPN IV SCH (16:00)
[2022-09-05] MEDS ORDERED: [UNRECOGNIZED DRUG - OTHER] IV SCH (16:00)
[2022-09-05] MEDS ORDERED: CLINOLIPID 20% IV FAT EMULSION 250 ML IV SCH (16:00)
[2022-09-05] MEDS: ACETAMINOPHEN 1,000 MG/100 ML VIAL IV PRN (22:00)
[2022-09-05] MEDS: STOP CLINOLIPID SCH (22:03)
[2022-09-06] MEDS: metroNIDAZOLE 500 MG/100 ML BAG IV SCH ×2 (00:04→07:13)
[2022-09-06] MEDS: KETOROLAC TROMETHAMINE 15 MG/ML VIAL IV PRN (02:24)
[2022-09-06] MEDS: PANTOprazole 40 MG in DEXTROSE 5% 100 ML IV SCH ×2 (03:29→09:03)
[2022-09-06] MEDS ORDERED: SODIUM CHLORIDE 0.9% IV ONE (05:48)
[2022-09-06] MEDS: ACETAMINOPHEN 1,000 MG/100 ML VIAL IV PRN ×3 (06:29→22:10)
[2022-09-06 07:11] LABS: Anion Gap 3 (3-11); BUN Creatinine Ratio 35.2 (10-20); Blood Urea Nitrogen 19 mg/dl (6-23); Calcium 8.3 mg/dl (8.5-10.1); Carbon Dioxide 27 mmol/L (21-32); Chloride 111 mmol/L (98-107); Creatinine Clr Calc Pharmacy 203.9 ml/min; Est GFR (African American) > 150.0 ml/min; Est GFR (Non-African American) 144.9 ml/min; Glucose 110 mg/dl (70-99(Fasting)); Magnesium 1.9 mg/dl (1.7-2.4); Phosphorus 2.8 mg/dl (2.5-4.9); Potassium 3.8 mmol/L (3.5-5.1); Sodium 141 mmol/L (136-145)
[2022-09-06] MEDS: MULTIVITAMIN TAB PO SCH (07:13)
[2022-09-06] MEDS: ERTAPENEM SODIUM 1,000 MG in SYRINGE 0 ML IV SCH (08:17)
--- NOTE | 2022-09-06 09:10 | Surgery Progress Note ---
Date of Service September 06, 2022 Assessment & Plan (1) H/O abdominal surgery: Plan: ABX were changed from levo/flagyl to ertapenem No more purulent drainage- packing d/c dressing incision daily with xeroform. will remove sutures for patient tomorrow during rounds and review scar care Gen Surg in to see patient- d/c NGT, start clears Admission and Anticipated Discharge Date Admission Date: August 24, 2022 Subjective Patient in bed. Has improved pain. He reports 4 good BM over the weekend. He is feeling very hungry. Physical Exam Physical Exam: VIDYA drain with scant output- removed and Optifoam applied packing removed and cavity probed with sterile q-tip. serous fluid, no purulence, no foul odor and no erythema of the soft tissue. incision dressed with xeroform and ABD. Results & Data ([facility]) Vital Signs (Past 12 Hours) Vital Signs Temp Pulse Pulse Resp BP BP Pulse Ox 09/06/22 08:06 36.6 C 80 18 137/91 99 09/05/22 22:07 37.2 C 88 18 130/69 98 O2 Del Method 09/06/22 08:06 Room Air 09/05/22 22:07 Room Air PG Care Time/CCT Total # of Minutes Spent Total Time Spent with Patient: Total time spent is greater than 50% in coordination of care (as documented) at patient's floor/unit and/or counseling patient: Coding Level of Care Code 02641 Post Operative Follow-Up Diagnoses H/O abdominal surgery Z98.890
--- NOTE | 2022-09-06 09:23 | Surgery Progress Note ---
Date of Service September 06, 2022 Assessment & Plan (1) H/O abdominal surgery: Plan: Patient made good progress over the wknd He is having + bowel function, is hungry. no n/v. ABX changed to IV Ertapenem per Pharmacy recs for wound cx + ecoli ESBL and group b strep Will d/c NGT and start pt on clear liquids, instructed to go slow. Continue TPN until having good oral intake Incision healing up well. no longer draining purulent fluid. dressed with xeroform and ABD's Will d/c protonix gtt, no evidence of GI bleed. can start qd po ppi Encourage ongoing ambulation Seen in conjunction with plastic surgery team As above. Patient looks and feels well this morning. He had about 4 bowel movements over the weekend. He is quite hungry. His incision is looking better. We will pull his NG tube and initiate clear liquids. Admission and Anticipated Discharge Date Admission Date: August 24, 2022 Subjective Patient is doing well. Pain still present, but manageable. No n/v. Is hungry. + bowel function over the weekend. Physical Exam Physical Exam: awake/alert no distress Gastrointestinal (Abdomen): Inspection/Auscultation: abdomen not distended Percussion/Palpation: + abdomen tender (mild cristian incisional discomfort to palpation ) and abdomen soft NGT with light brown drainage. -superior portion of abdominal incision c/d/i, small opening to inferior portion no longer draining purulent fluid will heal with secondary intention. Results & Data ([facility]) Vital Signs (Past 12 Hours) Vital Signs Temp Pulse Pulse Resp BP BP Pulse Ox 09/06/22 08:06 36.6 C 80 18 137/91 99 09/05/22 22:07 37.2 C 88 18 130/69 98 O2 Del Method 09/06/22 08:06 Room Air 09/05/22 22:07 Room Air PG Care Time/CCT Total # of Minutes Spent Total Time Spent with Patient: Total time spent is greater than 50% in coordination of care (as documented) at patient's floor/unit and/or counseling patient: Coding Level of Care Code 58700 Post Operative Follow-Up Diagnoses H/O abdominal surgery Z98.890
[2022-09-06] MEDS: PANTOprazole 40 MG TAB PO SCH (09:35)
[2022-09-06] MEDS: HYDROmorphone INJ 0.5 MG/0.5 ML SYR IV PRN ×5 (09:35→21:16)
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
[2022-09-06] MEDS ORDERED: [UNRECOGNIZED DRUG - OTHER] IV SCH (16:00)
[2022-09-06] MEDS ORDERED: CLINOLIPID 20% IV FAT EMULSION 250 ML IV SCH (16:00)
[2022-09-06] MEDS ORDERED: CENTRAL TPN IV SCH (16:00)
[2022-09-06] MEDS: LORazepam 0.5 MG TAB PO PRN (22:08)
[2022-09-06] MEDS: STOP CLINOLIPID SCH (22:13)
[2022-09-07] MEDS: HYDROmorphone INJ 0.5 MG/0.5 ML SYR IV PRN ×8 (02:04→23:40)
[2022-09-07] MEDS: ACETAMINOPHEN 1,000 MG/100 ML VIAL IV PRN ×2 (07:05→18:16)
[2022-09-07] MEDS ORDERED: DICYCLOMINE HCL 10 MG CAP PO STA (07:52)
[2022-09-07] MEDS: ERTAPENEM SODIUM 1,000 MG in SYRINGE 0 ML IV SCH (08:03)
[2022-09-07] MEDS: PANTOprazole 40 MG TAB PO SCH (08:03)
[2022-09-07] MEDS: MULTIVITAMIN TAB PO SCH (08:03)
[2022-09-07 08:13] LABS: Basophils # (auto) 0.09 K/uL (0-0.2); Basophils % (auto) 0.4 %; Eosinophils # (auto) 0.28 K/uL (0-0.50); Eosinophils % (auto) 1.3 %; Hematocrit (blood only) 35.5 % (42.0-52.0); Hemoglobin 11.8 g/dl (14.0-18.0); Immature Granulocytes # (auto) 0.31 K/uL (0.01-0.20); Immature Granulocytes % (auto) 1.5 %; Lymphocytes # (auto) 1.58 K/uL (1.2-3.4); Lymphocytes % (auto) 7.4 %; Mean Corpuscular Hemoglobin 28.9 pg (25.0-34.0); Mean Corpuscular Hgb Conc 33.2 g/dL (32.0-36.0); Mean Platelet Volume 9.1 fL (9.4-12.4); Monocytes # (auto) 1.03 K/uL (0.11-0.59); Monocytes % (auto) 4.9 %; Neutrophils # (auto) 17.93 K/uL (1.40-6.50); Neutrophils % (auto) 84.5 %; Platelet Count 864 K/uL (130-400); RDW Coefficient of Variation 13.4 % (11.5-14.5); RDW Standard Deviation 42.3 fL (36.4-46.3); Red Blood Count 4.08 M/uL (4.70-6.10); White Blood Count 21.22 K/ul (4.8-10.8)
[2022-09-07 08:25] LABS: Anion Gap 7 (3-11); BUN Creatinine Ratio 24.1 (10-20); Blood Urea Nitrogen 14 mg/dl (6-23); Calcium 9.2 mg/dl (8.5-10.1); Carbon Dioxide 27 mmol/L (21-32); Chloride 103 mmol/L (98-107); Creatinine Clr Calc Pharmacy 189.9 ml/min; Est GFR (African American) > 150.0 ml/min; Est GFR (Non-African American) 140.7 ml/min; Glucose 111 mg/dl (70-99(Fasting)); Magnesium 1.9 mg/dl (1.7-2.4); Phosphorus 3.2 mg/dl (2.5-4.9); Potassium 3.8 mmol/L (3.5-5.1); Sodium 137 mmol/L (136-145)
--- NOTE | 2022-09-07 08:52 | XRay Report ---
XR KUB/Abdomen 1 view CLINICAL HISTORY: abdominal pain TECHNIQUE: 1 view of the abdomen was obtained. Comparison: Comparison is made to CT abdomen pelvis 09/03/2021 FINDINGS: Enteric tube appears to have been removed. Orthopedic screws are seen in the left hip. There are a fe w gas-distended loops of small bowel in the left upper quadrant. Postsurgical changes are seen in the right lower quadrant. No significant stool burden is seen. IMPRESSION: There are several distended loops of small bowel compatible with small bowel obstruction versus ileus . The colon appears distended. ACT 112: Negative or not required by law. Electronically signed by: Marty Melgar M.D. 09/07/2022 8:51 AM
--- NOTE | 2022-09-07 09:06 | Surgery Progress Note ---
Date of Service September 07, 2022 Assessment & Plan (1) H/O abdominal surgery: Plan: Patient took a step back since NGT removed yesterday...having intermittent waves of abdominal cramping/pain. Bowel function has slowed. He denies any nausea/vomiting since removal. Only took in a small amount of clears. + bleching KUB today revealed distended loops of small bowel and distended colon Will back pt down to NPO, re-insert NGT and obtain repeat CT scan with oral contrast via NGT for further eval Continue on TPN On IV Ertapenem for + wound cultures Vitals have been stable, but seeing uptrend in WBC He is having + bowel function, is hungry. no n/v. Continue ongoing ambulation Will await CT scan results for further recommendations As above. Some abdominal cramping since removing his NG tube. No further flatus or bowel movement. Denies nausea. KUB looks better than it had last week however clinically he regressed. We will replace his NG tube and administer some oral contrast repeat CT scan. White blood cell count up to 21,[address] scan to evaluate this. Blood pressure dropped a little which appears to be an outlier however I will give him another 1 L normal saline bolus and monitor this. Very hostile abdomen. If we are unable t o get him eating and bowels moving soon we may need to reconsider gastrostomy tube at home for several weeks with GI decompression and TPN. Admission and Anticipated Discharge Date Admission Date: August 24, 2022 Subjective Patient reports intermittent abdominal pain that comes in waves since NGT removed. Denies any nausea. Not having much gas/bm since removal. Has been belching. Only took in a very small amount of clears yesterday. Has been ambulating the halls frequently. Physical Exam Physical Exam: awake/alert no distress. belching Gastrointestinal (Abdomen): Inspection/Auscultation: + abdominal surgical incision (c/d/i with xeroform dressing in place); no abdominal surgical drain present Percussion/Palpation: + abdomen tender and abdomen soft Results & Data ([facility]) Vital Signs (Past 12 Hours) Vital Signs Temp Pulse Resp BP Pulse Ox O2 Del Method 09/07/22 08:13 36.6 C 88 18 91/68 L 98 Room Air 09/06/22 23:16 37.1 C 09/06/22 21:10 38.1 C H 92 H 20 143/88 H 97 Room Air PG Care Time/CCT Total # of Minutes Spent Total Time Spent with Patient: Total time spent is greater than 50% in coordination of care (as documented) at patient's floor/unit and/or counseling patient: Coding Level of Care Code 85967 Post Operative Follow-Up Diagnoses H/O abdominal surgery Z98.890
--- NOTE | 2022-09-07 09:44 | Surgery Progress Note ---
Date of Service September 07, 2022 Assessment & Plan (1) H/O abdominal surgery: Plan: Incision is healing well, continue with xeroform until d/c. Follow-up with [facility] when home to discuss scar care. Patient declined since yesterday- KUB with persistent distended loops of small bowel compatible with small bowel obstruction versus ileus. The colon appears distended. Per Gen Surg- will reinsert NGT, revert back to NPO and obtain CT scan with oral contrast Admission and Anticipated Discharge Date Admission Date: August 24, 2022 Subjective Patient c/o abd pain and bloating. He had a small amount of clear liquids yesterday. He denies N/V, but is belching and has lost his appetite. He has been ambulating a lot in the hallways. Had one documented fever overnight. KUB obtained this AM. Physical Exam Physical Exam: dressing removed. open portion at inferior pole of incision has some serous drainage, remainder of incision is CDI, well approximated. monocryl knots were excised. incisions redressed with xeroform/abd gauze drain site healing appropriately abd soft, tender Results & Data ([facility]) Vital Signs (Past 12 Hours) Vital Signs Temp Pulse Resp BP Pulse Ox O2 Del Method 09/07/22 08:13 36.6 C 88 18 91/68 L 98 Room Air 09/06/22 23:16 37.1 C PG Care Time/CCT Total # of Minutes Spent Total Time Spent with Patient: Total time spent is greater than 50% in coordination of care (as documented) at patient's floor/unit and/or counseling patient: Coding Level of Care Code 59630 Post Operative Follow-Up Diagnoses H/O abdominal surgery Z98.890
[2022-09-07] MEDS ORDERED: ONDANSETRON INJ 2 MG/ML 2 ML VIAL IV STA (10:37)
[2022-09-07] MEDS ORDERED: SODIUM CHLORIDE 0.9% 500 ML IV ONE (11:04)
[2022-09-07] MEDS: PROMETHAZINE HCL 12.5 MG in SODIUM CHLORIDE 0.9% 50 ML IV PRN (11:19)
--- NOTE | 2022-09-07 12:17 | CT Scan Report ---
CT SCAN OF THE ABDOMEN AND PELVIS WITHOUT IV CONTRAST CLINICAL HISTORY: Postoperative abdominal pain. COMPARISON STUDY: Abdominal CT dated 08/31/2022. TECHNIQUE: CT scan of the abdomen and pelvis is performed from the lung bases to the proximal femora. Images are reviewed in the axial, sagittal, and coronal planes. IV contrast was not administered for this examination. Note that the examination was performed in significantly suboptimal fashion withou t IV contrast. Oral contrast was utilized. A dose lowering technique was utilized adhering to the stuart Coles. CT DOSE: 344.37 mGy.cm FINDINGS: Lung bases: The tip of a PICC line terminates at the cavoatrial junction. The heart is normal in size and without pericardial effusion. The lung bases are clear. Liver: The unenhanced liver is normal in size, contour, and attenuation. There is no intrahepatic cyndi iary ductal dilatation. Gallbladder: Unremarkable. Spleen: Normal in size and attenuation. Pancreas: Unremarkable. Adrenal glands: Unremarkable. Kidneys: The unenhanced kidneys are normal in size and without hydronephrosis. There is fullness of t he renal collecting system bilaterally, likely related to bladder distention. No renal calculi are id entified. There is no evidence of contour deforming renal mass lesion. Abdominal vasculature: The abdominal aorta is normal in course and caliber. 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 Stomach and bowel: An enteric tube terminates in the stomach. There is postsurgical change from subto saima colectomy with ileocolic anastomosis. A small bowel anastomosis is noted in the right lower quadr ant. Residual enteric contrast is noted in the rectosigmoid. The proximal small bowel loops are diste nded and fluid-filled, measuring up to 4 cm in diameter. The majority of the enteric contrast is loca leah in the stomach and proximal small bowel. The distal small bowel loops are decompressed above the ileocolic anastomosis. A bowel obstruction is not excluded. A discrete transition point is difficult to visualize. There is no pneumatosis intestinalis or portal venous gas. No significantly thick-ana d bowel loops are identified. Peritoneum: There is interloop fluid and trace abdominopelvic ascites. No intraperitoneal free air is seen. No organized/drainable intraperitoneal fluid collection is clearly seen on this unenhanced exa mination. Lymphadenopathy: None. Pelvic viscera: Evaluation of the pelvis is degraded by streak artifact from orthopedic hardware in t he left hip. The bladder is distended and appears thick walled. There is pericystic infiltration. The prostate and seminal vesicles are normal as visualized.. Skeletal structures: No lytic or blastic lesions are seen. Intertrochanteric screws are present in th e left proximal femur. Soft tissues: There is a midline surgical scar with subcutaneous inflammation and tiny foci of gas. N o organized/drainable fluid collection is seen. IMPRESSION: 1. Postoperative changes as above. 2. There are significantly distended loops of proximal and mid small bowel bowel. Enteric contrast re aches the jejunum, and the distal small bowel is decompressed above the ileocolic anastomosis. This i s similar in appearance to prior examinations and favors a partial small bowel obstruction. Clinical correlation will be essential. 3. There is interloop fluid and trace abdominopelvic ascites. 4. No intraperitoneal free air is seen. No organized fluid collection is identified on this unenhance d examination. 5. The bladder is distended and appears thick-walled with surrounding infiltration. Correlate with cl inical findings and urinalysis. 6. Fullness of the renal collecting systems is likely related to bladder distention. 7. Additional findings as above. ACT 112: Negative or not required by law. Electronically signed by: Mars Velazquez M.D. 09/07/2022 12:16 PM
[2022-09-07] MEDS ORDERED: ONDANSETRON INJ 2 MG/ML 2 ML VIAL IV PRN (14:45)
[2022-09-07 14:59] LABS: Appearance Urine Clear (Clear); Bilirubin Urine Negative (Negative); Blood Urine Negative (Negative); Color Urine Yellow; Glucose Urine UA Negative (Negative); Ketones Urine Negative (Negative); Leukocyte Esterase Urine Negative (Negative); Nitrite Urine Negative (Negative); Protein Urine Negative (Negative); Specific Gravity Urine 1.008 (1.000-1.030); Urobilinogen Urine Negative (Negative); pH Urine 7.5 (4.5-7.5)
[2022-09-07] MEDS ORDERED: CENTRAL TPN IV SCH (16:00)
[2022-09-07] MEDS ORDERED: [UNRECOGNIZED DRUG - OTHER] IV SCH (16:00)
[2022-09-07] MEDS ORDERED: CLINOLIPID 20% IV FAT EMULSION 250 ML IV SCH (16:00)
[2022-09-07] MEDS ORDERED: SODIUM CHLORIDE 0.9% 1000ML 500 ML IV ONE (17:42)
[2022-09-07] MEDS: STOP CLINOLIPID SCH (21:45)
[2022-09-08] MEDS: ACETAMINOPHEN 1,000 MG/100 ML VIAL IV PRN (00:35)
[2022-09-08] MEDS: HYDROmorphone INJ 0.5 MG/0.5 ML SYR IV PRN ×8 (03:07→22:56)
[2022-09-08] MEDS ORDERED: SODIUM CHLORIDE 0.9% 1000ML 300 ML IV ONE (06:00)
[2022-09-08] MEDS: MULTIVITAMIN TAB PO SCH (08:25)
[2022-09-08] MEDS: PANTOprazole 40 MG TAB PO SCH (08:25)
[2022-09-08] MEDS: ERTAPENEM SODIUM 1,000 MG in SYRINGE 0 ML IV SCH (08:25)
[2022-09-08 08:47] LABS: Basophils # (auto) 0.05 K/uL (0-0.2); Basophils % (auto) 0.3 %; Eosinophils # (auto) 0.24 K/uL (0-0.50); Eosinophils % (auto) 1.4 %; Hematocrit (blood only) 33.5 % (42.0-52.0); Immature Granulocytes # (auto) 0.23 K/uL (0.01-0.20); Immature Granulocytes % (auto) 1.3 %; Lymphocytes # (auto) 1.73 K/uL (1.2-3.4); Lymphocytes % (auto) 9.9 %; Mean Corpuscular Hemoglobin 28.6 pg (25.0-34.0); Mean Corpuscular Hgb Conc 32.8 g/dL (32.0-36.0); Mean Corpuscular Volume 87.2 fL (80.0-100.0); Mean Platelet Volume 8.9 fL (9.4-12.4); Monocytes # (auto) 0.89 K/uL (0.11-0.59); Monocytes % (auto) 5.1 %; Neutrophils # (auto) 14.36 K/uL (1.40-6.50); Platelet Count 815 K/uL (130-400); RDW Coefficient of Variation 13.4 % (11.5-14.5); RDW Standard Deviation 42.4 fL (36.4-46.3); Red Blood Count 3.84 M/uL (4.70-6.10)
--- NOTE | 2022-09-08 09:00 | Surgery Progress Note ---
Date of Service September 08, 2022 Assessment & Plan (1) H/O abdominal surgery: Plan: Discussed the results of his CT scan. Unfortunately continues to have persistent small bowel obstruction in the face of a hostile abdomen. Continue NG tube and TPN. We will recheck KUB's today and tomorrow. If no progress will have to discuss placement of a gastrostomy tube and start discussing with case management regarding discharging home on TPN and suction to the gastrostomy tube for several weeks. Patient understands. Questions answered (2) SBO (small bowel obstruction): Admission and Anticipated Discharge Date Admission Date: August 24, 2022 Subjective Patient seen. Abdominal discomfort better than yesterday but still with some lower abdominal cramping. No bowel movement or flatus Physical Exam Physical Exam: Alert. No acute distress Abdomen is soft. Minimal distention. Minimal tenderness. Incision looks good Results & Data ([facility]) Vital Signs (Past 12 Hours) Vital Signs Temp Pulse Resp BP Pulse Ox O2 Del Method 09/08/22 07:30 37.0 C 82 18 104/70 97 Room Air 09/07/22 23:43 36.8 C 78 16 113/79 97 Room Air PG Care Time/CCT Total # of Minutes Spent Total Time Spent with Patient: Total time spent is greater than 50% in coordination of care (as documented) at patient's floor/unit and/or counseling patient: Coding Level of Care Code 32837 Post Operative Follow-Up Diagnoses H/O abdominal surgery Z98.890 SBO (small bowel obstruction) K56.609
[2022-09-08 09:03] LABS: Anion Gap 5 (3-11); BUN Creatinine Ratio 30.6 (10-20); Blood Urea Nitrogen 15 mg/dl (6-23); Calcium 9.1 mg/dl (8.5-10.1); Carbon Dioxide 29 mmol/L (21-32); Chloride 105 mmol/L (98-107); Creatinine Clr Calc Pharmacy 224.7 ml/min; Est GFR (African American) > 150.0 ml/min; Est GFR (Non-African American) > 150.0 ml/min; Glucose 135 mg/dl (70-99(Fasting)); Magnesium 2.1 mg/dl (1.7-2.4); Phosphorus 2.8 mg/dl (2.5-4.9); Potassium 4.3 mmol/L (3.5-5.1); Sodium 139 mmol/L (136-145); Triglycerides 236 mg/dl (0-150)
--- NOTE | 2022-09-08 09:29 | XRay Report ---
XR KUB/Abdomen 1 view CLINICAL HISTORY: eval SBO TECHNIQUE: 1 view of the abdomen was obtained. Comparison: Comparison is made to abdomen radiograph 09/07/2022 FINDINGS: Postsurgical changes likely of bowel resection are again noted in the right lower quadrant. The osseo us structures are grossly unremarkable. A few gas-distended loops of small bowel are again seen in th e left upper quadrant, apparently slightly decreased in diameter from prior exam. No significant stoo l burden is seen. IMPRESSION: Gas-distended loops of bowel in the left upper quadrant are minimally decreased in size from prior ex am, compatible with small bowel obstruction versus ileus. ACT 112: Negative or not required by law. Electronically signed by: Marty Melgar M.D. 09/08/2022 9:27 AM
[2022-09-08] MEDS ORDERED: [UNRECOGNIZED DRUG - OTHER] IV SCH (16:00)
[2022-09-08] MEDS ORDERED: CENTRAL TPN IV SCH (16:00)
[2022-09-08] MEDS: ACETAMINOPHEN 325 MG TAB PO PRN (16:35)
[2022-09-08] MEDS ORDERED: SODIUM CHLORIDE 0.9% 1000ML 400 ML IV ONE (17:59)
[2022-09-09] MEDS: HYDROmorphone INJ 0.5 MG/0.5 ML SYR IV PRN ×5 (03:31→20:36)
[2022-09-09 07:30] LABS: Anion Gap 6 (3-11); BUN Creatinine Ratio 35.8 (10-20); Blood Urea Nitrogen 19 mg/dl (6-23); Carbon Dioxide 29 mmol/L (21-32); Chloride 104 mmol/L (98-107); Creatinine Clr Calc Pharmacy 207.8 ml/min; Est GFR (African American) > 150.0 ml/min; Glucose 113 mg/dl (70-99(Fasting)); Magnesium 2.2 mg/dl (1.7-2.4); Phosphorus 3.6 mg/dl (2.5-4.9); Potassium 4.1 mmol/L (3.5-5.1); Sodium 139 mmol/L (136-145)
[2022-09-09 07:50] LABS: Basophils # (auto) 0.07 K/uL (0-0.2); Basophils % (auto) 0.5 %; Eosinophils # (auto) 0.19 K/uL (0-0.50); Eosinophils % (auto) 1.5 %; Hematocrit (blood only) 33.1 % (42.0-52.0); Hemoglobin 10.8 g/dl (14.0-18.0); Immature Granulocytes % (auto) 3.9 %; Lymphocytes # (auto) 2.07 K/uL (1.2-3.4); Lymphocytes % (auto) 16.1 %; Mean Corpuscular Hemoglobin 28.2 pg (25.0-34.0); Mean Corpuscular Hgb Conc 32.6 g/dL (32.0-36.0); Mean Corpuscular Volume 86.4 fL (80.0-100.0); Mean Platelet Volume 9.1 fL (9.4-12.4); Monocytes # (auto) 0.79 K/uL (0.11-0.59); Monocytes % (auto) 6.1 %; Neutrophils # (auto) 9.24 K/uL (1.40-6.50); Neutrophils % (auto) 71.9 %; Platelet Count 778 K/uL (130-400); RDW Coefficient of Variation 13.5 % (11.5-14.5); RDW Standard Deviation 42.2 fL (36.4-46.3); Red Blood Count 3.83 M/uL (4.70-6.10); White Blood Count 12.86 K/ul (4.8-10.8)
[2022-09-09] MEDS: MULTIVITAMIN TAB PO SCH (08:21)
[2022-09-09] MEDS: PANTOprazole 40 MG TAB PO SCH (08:21)
--- NOTE | 2022-09-09 10:11 | Surgery Progress Note ---
Date of Service September 09, 2022 Assessment & Plan (1) SBO (small bowel obstruction): Plan: Discussed potentially placing a gastrostomy tube today or tomorrow and try to initiate getting him home with some TPN. He would like to wait a couple more days to think on this and to give him more time. I think considering all things he has been through this is reasonable. If he does not have any progress over the weekend and we will need to consider placement of a gastrostomy tube for venting purposes as well as home TPN. Today's x-ray still pending. Afebrile and his white blood cell count is coming down. (2) H/O abdominal surgery: Admission and Anticipated Discharge Date Admission Date: August 24, 2022 Subjective Patient seen. Feeling much better today. Really no abdominal pain at all today. He is hungry. No additional bowel movements. Physical Exam Physical Exam: Alert. No acute distress Abdominal exam is unchanged. His incision looks good Results & Data ([facility]) Vital Signs (Past 12 Hours) Vital Signs Temp Pulse Resp BP Pulse Ox O2 Del Method 09/09/22 07:41 36.7 C 86 18 111/72 97 Room Air 09/08/22 23:09 36.7 C 74 18 111/73 97 Room Air PG Care Time/CCT Total # of Minutes Spent Total Time Spent with Patient: Total time spent is greater than 50% in coordination of care (as documented) at patient's floor/unit and/or counseling patient: Coding Level of Care Code 10498 Post Operative Follow-Up Diagnoses SBO (small bowel obstruction) K56.609 H/O abdominal surgery Z98.890
[2022-09-09] MEDS: ERTAPENEM SODIUM 1,000 MG in SYRINGE 0 ML IV SCH (10:27)
--- NOTE | 2022-09-09 13:12 | XRay Report ---
KUB CLINICAL HISTORY: Small bowel obstruction. FINDINGS: 2 AP supine abdominal radiographs are compared to study dated 09/08/2022 and correlated with abdominal CT dated 09/07/2022. An enteric tube projects below the diaphragm over the gastric fundus. Napoles ture material projects in the right midabdomen. There is persistent gaseous distention of small bowel loops in the left upper quadrant. This is similar to yesterday. These loops measure up to 4.6 cm in diameter. No evidence of intraperitoneal free air is seen on these supine images. There are no abnorm al abdominal calcifications. Residual enteric contrast is noted in the rectum. The bony structures ap parent intact noting chronic deformity and postsurgical change in the left proximal femur. IMPRESSION: Findings are similar to yesterday with evidence of persistent obstruction. Electronically signed by: Mars Velazquez M.D. 09/09/2022 1:11 PM
[2022-09-09] MEDS ORDERED: [UNRECOGNIZED DRUG - OTHER] IV SCH (16:00)
[2022-09-09] MEDS ORDERED: CENTRAL TPN IV SCH (16:00)
[2022-09-09] MEDS: ACETAMINOPHEN 325 MG TAB PO PRN (18:15)
[2022-09-09] MEDS ORDERED: SODIUM CHLORIDE 0.9% 1000ML 250 ML IV ONE (18:17)
[2022-09-09] MEDS: LORazepam 0.5 MG TAB PO PRN (20:35)
[2022-09-10] MEDS: HYDROmorphone INJ 0.5 MG/0.5 ML SYR IV PRN ×4 (03:34→20:23)
[2022-09-10 06:28] LABS: Basophils # (auto) 0.08 K/uL (0-0.2); Basophils % (auto) 0.8 %; Eosinophils # (auto) 0.17 K/uL (0-0.50); Eosinophils % (auto) 1.7 %; Hematocrit (blood only) 33.3 % (42.0-52.0); Hemoglobin 10.9 g/dl (14.0-18.0); Immature Granulocytes # (auto) 0.23 K/uL (0.01-0.20); Immature Granulocytes % (auto) 2.3 %; Lymphocytes # (auto) 1.72 K/uL (1.2-3.4); Mean Corpuscular Hemoglobin 28.5 pg (25.0-34.0); Mean Corpuscular Hgb Conc 32.7 g/dL (32.0-36.0); Mean Corpuscular Volume 86.9 fL (80.0-100.0); Mean Platelet Volume 8.9 fL (9.4-12.4); Monocytes # (auto) 0.83 K/uL (0.11-0.59); Monocytes % (auto) 8.2 %; Neutrophils # (auto) 7.07 K/uL (1.40-6.50); Platelet Count 702 K/uL (130-400); RDW Coefficient of Variation 13.8 % (11.5-14.5); RDW Standard Deviation 42.7 fL (36.4-46.3); Red Blood Count 3.83 M/uL (4.70-6.10)
[2022-09-10 06:50] LABS: Anion Gap 4 (3-11); BUN Creatinine Ratio 39.7 (10-20); Blood Urea Nitrogen 23 mg/dl (6-23); Calcium 9.1 mg/dl (8.5-10.1); Carbon Dioxide 30 mmol/L (21-32); Chloride 106 mmol/L (98-107); Creatinine Clr Calc Pharmacy 189.9 ml/min; Est GFR (African American) > 150.0 ml/min; Est GFR (Non-African American) 140.7 ml/min; Glucose 114 mg/dl (70-99(Fasting)); Magnesium 2.2 mg/dl (1.7-2.4); Phosphorus 3.8 mg/dl (2.5-4.9); Potassium 4.2 mmol/L (3.5-5.1); Sodium 140 mmol/L (136-145); Triglycerides 223 mg/dl (0-150)
[2022-09-10] MEDS: PANTOprazole 40 MG TAB PO SCH (08:58)
[2022-09-10] MEDS: ERTAPENEM SODIUM 1,000 MG in SYRINGE 0 ML IV SCH (08:58)
[2022-09-10] MEDS: MULTIVITAMIN TAB PO SCH (08:58)
--- NOTE | 2022-09-10 10:58 | Surgery Progress Note ---
Date of Service September 10, 2022 Assessment & Plan (1) H/O abdominal surgery: Plan: Improving clinically again. NG tube with only about 100 cc out overnight. We will recheck KUB tomorrow if contrast has made it into the colon we can try and reinitiate clear liquids. Keep NG tube in over the weekend. Dr. Hilario covering for the weekend. (2) SBO (small bowel obstruction): Admission and Anticipated Discharge Date Admission Date: August 24, 2022 Subjective Patient seen. He is feeling well. He had 2 bowel movements yesterday. No furt her nausea. He continues to walk routinely. Physical Exam Physical Exam: Alert. No acute distress Abdomen soft nontender Results & Data ([facility]) Vital Signs (Past 12 Hours) Vital Signs Temp Pulse Resp BP Pulse Ox O2 Del Method 09/10/22 07:54 37.3 C 75 18 113/70 93 Room Air PG Care Time/CCT Total # of Minutes Spent Total Time Spent with Patient: Total time spent is greater than 50% in coordination of care (as documented) at patient's floor/unit and/or counseling patient: Coding Level of Care Code 41963 Post Operative Follow-Up Diagnoses H/O abdominal surgery Z98.890 SBO (small bowel obstruction) K56.609
--- NOTE | 2022-09-10 12:03 | Pharmacy Report ---
PHA: Parenteral Nutrition Con - Date of Service September 10, 2022 - Scope Pharmacy was consulted on 08/31/22 to manage parenteral nutrition orders for this patient. - Subjective The patient is currently on day 11 of central parenteral nutrition for prolonged NPO/malnourishment. 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 - Assessment * Electrolytes remain stable - no change to ordered electrolytes today * Triglycerides remain elevated, discussed with dietary and will hold again today and then plan to proceed with 2-3x weekly lipids * Plan is to keep NG tube in over the weekend * Nausea improved, 2 BMs reported yesterday - Plan For day 11 of PN administration, the following will be ordered: Macronutrients Amino acids 115 grams/day Dextrose 202 grams/day Hold lipids Micronutrients Combined electrolytes 20 mL - contains 35 mEq Na, 20 meq K, 4.5 mEq Ca, 5 mEq Mg, 35 mEq Cl, 29.5 mEq acetate per 20 mL Sodium phosphate 15 MMol Sodium chloride 20 mEq Sodium acetate 80 mEq Potassium acetate 40 mEq Multivitamins 10 mL Trace Elements 1 mL Additional additives: thiamine 100 mg, folic acid 1 mg Total volume 1545 mL to be infused over 24 hrs will provide 1146 kcal/day Labs, as indicated, will be ordered per protocol Pharmacy will continue to follow and adjust parenteral nutrition orders on a daily basis. Thank you for allowing us to participate in the care of this patient.
[2022-09-10] MEDS ORDERED: CENTRAL TPN IV SCH (16:00)
[2022-09-10] MEDS ORDERED: [UNRECOGNIZED DRUG - OTHER] IV SCH (16:00)
[2022-09-10] MEDS ORDERED: SODIUM CHLORIDE 0.9% 1000ML 250 ML IV ONE (18:44)
[2022-09-10] MEDS: LORazepam 0.5 MG TAB PO PRN (20:23)
[2022-09-11] MEDS: HYDROmorphone INJ 0.5 MG/0.5 ML SYR IV PRN ×8 (04:19→23:06)
[2022-09-11 06:29] LABS: Basophils # (auto) 0.11 K/uL (0-0.2); Basophils % (auto) 1.2 %; Eosinophils # (auto) 0.13 K/uL (0-0.50); Eosinophils % (auto) 1.4 %; Hematocrit (blood only) 33.9 % (42.0-52.0); Immature Granulocytes # (auto) 0.21 K/uL (0.01-0.20); Immature Granulocytes % (auto) 2.3 %; Lymphocytes # (auto) 1.59 K/uL (1.2-3.4); Lymphocytes % (auto) 17.5 %; Mean Corpuscular Hemoglobin 28.6 pg (25.0-34.0); Mean Corpuscular Hgb Conc 32.4 g/dL (32.0-36.0); Mean Corpuscular Volume 88.3 fL (80.0-100.0); Mean Platelet Volume 9.2 fL (9.4-12.4); Monocytes # (auto) 0.76 K/uL (0.11-0.59); Monocytes % (auto) 8.4 %; Neutrophils % (auto) 69.2 %; Platelet Count 691 K/uL (130-400); RDW Coefficient of Variation 13.8 % (11.5-14.5); RDW Standard Deviation 44.4 fL (36.4-46.3); Red Blood Count 3.84 M/uL (4.70-6.10)
[2022-09-11] MEDS: ERTAPENEM SODIUM 1,000 MG in SYRINGE 0 ML IV SCH (08:26)
--- NOTE | 2022-09-11 09:41 | Surgery Progress Note ---
Date of Service September 11, 2022 Assessment & Plan (1) H/O abdominal surgery: Plan: 09/11/2022 Continuing to improve. Reports improvement in abdominal pain, continues to move his bowels. Would like to try clear liquids. Will keep NG tube, but advance diet to clear liquids. He was advised to go slow with liquids. KUB may be slightly improved- waiting for radiology read. Abdominal incision healing well- dressing changed. 09/10/2022 Improving clinically again. NG tube with only about 100 cc out overnight. We will recheck KUB tomorrow if contrast has made it into the colon we can try and reinitiate clear liquids. Keep NG tube in over the weekend. Dr. Hilario covering for the weekend. (2) SBO (small bowel obstruction): Admission and Anticipated Discharge Date Admission Date: August 24, 2022 Subjective Armand is resting in bed. He reports that he continues to feel better today. He denies nausea. NG tube in place. He reports that he continues to move his bowels. Abdominal pain is much improved. Review of Systems Constitutional: no fever and no chills Respiratory: no cough, no chest congestion, no dyspnea and no dyspnea on exertion Gastrointestinal: + abdominal pain (improving. ); no nausea and no vomiting Physical Exam Physical Exam: dressing removed. open portion at inferior pole of incision has some serous drainage, remainder of incision is CDI, well approximated. Incision redressed with xeroform/abd gauze drain site healing appropriately abd soft, slightly tender Respiratory: normal respiratory effort; no respiratory distress and no labored breathing Results & Data ([facility]) Vital Signs (Past 12 Hours) Vital Signs Temp Pulse Resp BP Pulse Ox O2 Del Method 09/11/22 07:21 36.7 C 96 H 18 96/62 L 96 Room Air 09/10/22 22:14 36.7 C 75 18 96/62 L 96 Room Air PG Care Time/CCT Total # of Minutes Spent Total Time Spent with Patient: Total time spent is greater than 50% in coordination of care (as documented) at patient's floor/unit and/or counseling patient: Coding Level of Care Code 17491 Post Operative Follow-Up Diagnoses H/O abdominal surgery Z98.890 SBO (small bowel obstruction) K56.609
[2022-09-11] MEDS: PANTOprazole 40 MG in SYRINGE 0 ML IV SCH (11:08)
[2022-09-11] MEDS ORDERED: CENTRAL TPN IV SCH (16:00)
[2022-09-11] MEDS ORDERED: [UNRECOGNIZED DRUG - OTHER] IV SCH (16:00)
--- NOTE | 2022-09-11 17:26 | XRay Report ---
XR KUB/Abdomen 1 view CLINICAL HISTORY: eval sbo, passage of CT contrast TECHNIQUE: 1 view of the abdomen was obtained. Comparison: Comparison is made to abdomen radiograph 09/09/2022 FINDINGS: Lung bases are unremarkable. The osseous structures are grossly unremarkable. Multiple gas-distended loops of small bowel are seen measuring up to 33 mm in diameter. No significant progression of previo usly seen enteric contrast. No significant stool burden. IMPRESSION: Findings are compatible with continued small bowel obstruction with no significant passage of enteric contrast. ACT 112: Negative or not required by law. Electronically signed by: Marty Melgar M.D. 09/11/2022 5:25 PM
[2022-09-11] MEDS: LORazepam 0.5 MG TAB PO PRN (19:54)
[2022-09-12] MEDS: HYDROmorphone INJ 0.5 MG/0.5 ML SYR IV PRN ×9 (01:52→21:47)
[2022-09-12 07:07] LABS: Basophils # (auto) 0.06 K/uL (0-0.2); Basophils % (auto) 0.6 %; Eosinophils # (auto) 0.17 K/uL (0-0.50); Eosinophils % (auto) 1.6 %; Hematocrit (blood only) 35.3 % (42.0-52.0); Hemoglobin 11.5 g/dl (14.0-18.0); Immature Granulocytes # (auto) 0.12 K/uL (0.01-0.20); Immature Granulocytes % (auto) 1.1 %; Lymphocytes # (auto) 1.74 K/uL (1.2-3.4); Lymphocytes % (auto) 16.5 %; Mean Corpuscular Hemoglobin 28.5 pg (25.0-34.0); Mean Corpuscular Hgb Conc 32.6 g/dL (32.0-36.0); Mean Corpuscular Volume 87.6 fL (80.0-100.0); Mean Platelet Volume 9.2 fL (9.4-12.4); Monocytes # (auto) 0.97 K/uL (0.11-0.59); Monocytes % (auto) 9.2 %; Platelet Count 640 K/uL (130-400); RDW Coefficient of Variation 13.9 % (11.5-14.5); RDW Standard Deviation 43.8 fL (36.4-46.3); Red Blood Count 4.03 M/uL (4.70-6.10); White Blood Count 10.56 K/ul (4.8-10.8)
[2022-09-12 08:52] LABS: Anion Gap 6 (3-11); BUN Creatinine Ratio 36.1 (10-20); Blood Urea Nitrogen 22 mg/dl (6-23); Carbon Dioxide 31 mmol/L (21-32); Chloride 104 mmol/L (98-107); Creatinine Clr Calc Pharmacy 180.5 ml/min; Est GFR (African American) > 150.0 ml/min; Est GFR (Non-African American) 137.8 ml/min; Glucose 105 mg/dl (70-99(Fasting)); Magnesium 2.1 mg/dl (1.7-2.4); Phosphorus 3.9 mg/dl (2.5-4.9); Potassium 3.9 mmol/L (3.5-5.1); Sodium 141 mmol/L (136-145); Triglycerides 205 mg/dl (0-150)
[2022-09-12] MEDS: ERTAPENEM SODIUM 1,000 MG in SYRINGE 0 ML IV SCH (09:02)
--- NOTE | 2022-09-12 09:30 | Surgery Progress Note ---
Date of Service September 12, 2022 Assessment & Plan (1) H/O abdominal surgery: Plan: 09/12/2022 Much improved today! Will continue to keep him on clear liquids and keep NG tube in place. If he continues to do well, can consider NG tube removal and advancing diet early this coming week. Will order KUB for tomorrow AM. Abdominal incision continues to heal well with no signs of infection. 09/11/2022 Continuing to improve. Reports improvement in abdominal pain, continues to move his bowels. Would like to try clear liquids. Will keep NG tube, but advance diet to clear liquids. He was advised to go slow with liquids. KUB may be slightly improved- waiting for radiology read. Abdominal incision healing well- dressing changed. 09/10/2022 Improving clinically again. NG tube with only about 100 cc out overnight. We will recheck KUB tomorrow if contrast has made it into the colon we can try and reinitiate clear liquids. Keep NG tube in over the weekend. Dr. Hilario covering for the weekend. (2) SBO (small bowel obstruction): Admission and Anticipated Discharge Date Admission Date: August 24, 2022 Supervising Physician Co-Signing Physician Notes Dr. Hilariopatient slowly improving, moving his bowels, KUB looks improved to me Tolerating NG with p.o. intake Continue TPN Subjective Armand is resting in bed. He reports that he is feeling great today. He is tolerating clear liquids. Review of Systems Constitutional: no fever and no chills Respiratory: no cough, no chest congestion, no dyspnea and no dyspnea on exertion Gastrointestinal: + abdominal pain (much improved! ); no nausea and no vomiting Physical Exam Physical Exam: dressing removed. open portion at inferior pole of incision has some scant serous drainage, remainder of incision is CDI, well approximated. Incision redressed with xeroform/abd gauze drain site healing appropriately abd soft, slightly tender Respiratory: normal respiratory effort; no respiratory distress and no labored breathing Psychiatric: A+Ox3, euthymic affect Results & Data ([facility]) Vital Signs (Past 12 Hours) Vital Signs Temp Pulse Resp BP Pulse Ox O2 Del Method 09/12/22 07:21 37.0 C 66 18 106/72 96 Room Air PG Care Time/CCT Total # of Minutes Spent Total Time Spent with Patient: Total time spent is greater than 50% in coordination of care (as documented) at patient's floor/unit and/or counseling patient: Coding Level of Care Code 94527 Post Operative Follow-Up Diagnoses H/O abdominal surgery Z98.890 SBO (small bowel obstruction) K56.609
[2022-09-12] MEDS: PANTOprazole 40 MG in SYRINGE 0 ML IV SCH (11:01)
[2022-09-12] MEDS ORDERED: [UNRECOGNIZED DRUG - OTHER] IV SCH (16:00)
[2022-09-12] MEDS ORDERED: CLINOLIPID 20% IV FAT EMULSION 250 ML IV SCH (16:00)
[2022-09-12] MEDS ORDERED: CENTRAL TPN IV SCH (16:00)
[2022-09-12] MEDS: LORazepam 0.5 MG TAB PO PRN (19:33)
[2022-09-12] MEDS: STOP CLINOLIPID SCH (21:46)
[2022-09-13] MEDS: HYDROmorphone INJ 0.5 MG/0.5 ML SYR IV PRN ×8 (02:34→23:33)
--- NOTE | 2022-09-13 07:43 | XRay Report ---
KUB CLINICAL HISTORY: Small bowel obstruction. FINDINGS: An AP, portable, supine abdominal radiograph is compared to study dated 09/11/2022 and corre lated with abdominal CT dated 09/07/2022. An enteric tube projects below the diaphragm over the gastric fundus. Suture material projects in the right midabdomen. There is increasing gaseous distention of the small bowel loops as compared to previous indicating persistent obstruction. These loops measure up to 4 cm in diameter. No evidence of intraperitoneal free air is seen on this supine image. There a re no abnormal abdominal calcifications. Residual enteric contrast is noted in the rectosigmoid. The bony structures apparent intact noting postsurgical change partially visualized in the left proximal femur. IMPRESSION: There is increasing gaseous distention of the small bowel loops as compared to 09/11/2022 indicating persistent obstruction. Electronically signed by: Mars Velazquez M.D. 09/13/2022 7:42 AM
[2022-09-13] MEDS: ERTAPENEM SODIUM 1,000 MG in SYRINGE 0 ML IV SCH (08:18)
[2022-09-13] MEDS: PANTOprazole 40 MG in SYRINGE 0 ML IV SCH (10:37)
--- NOTE | 2022-09-13 10:55 | Surgery Progress Note ---
Date of Service September 13, 2022 Assessment & Plan (1) H/O abdominal surgery: Plan: Still concerned enough that I do not want to remove the NG tube yet. I want him to drink another 24 hours and see how he feels tomorrow. If he continues to have bowel function and no symptoms I would consider taking his NG tube out tomorrow. He is to continue to ambulate. We also need to continue TPN. (2) SBO (small bowel obstruction): Admission and Anticipated Discharge Date Admission Date: August 24, 2022 Subjective Patient seen. Overall he had a good weekend. He had some more bowel movements and is passing gas. He has had his NG tube clamped now since Tuesday. He drank a lot of fluids on Tuesday and some yesterday. Occasionally has some mild lower abdominal cramping but overall feels well. He continues to walk. Physical Exam Physical Exam: Soft. Nontender. Incision looks good. NG tube in place/clamped Results & Data ([facility]) Vital Signs (Past 12 Hours) Vital Signs Temp Pulse Resp BP Pulse Ox O2 Del Method 09/13/22 07:52 36.6 C 85 17 102/69 97 Room Air PG Care Time/CCT Total # of Minutes Spent Total Time Spent with Patient: Total time spent is greater than 50% in coordination of care (as documented) at patient's floor/unit and/or counseling patient: Coding Level of Care Code 15689 Post Operative Follow-Up Diagnoses H/O abdominal surgery Z98.890 SBO (small bowel obstruction) K56.609
[2022-09-13] MEDS ORDERED: ACETAMINOPHEN SUSP 325 MG/10.15 ML UDC PO PRN (13:14)
[2022-09-13] MEDS: oxyCODONE HCL SOLN 5 MG/5 ML UDC PO PRN (15:43)
[2022-09-13] MEDS ORDERED: [UNRECOGNIZED DRUG - OTHER] IV SCH (16:00)
[2022-09-13] MEDS ORDERED: CENTRAL TPN IV SCH (16:00)
[2022-09-13] MEDS: LORazepam 0.5 MG TAB PO PRN (19:33)
[2022-09-14] MEDS: oxyCODONE HCL SOLN 5 MG/5 ML UDC PO PRN ×2 (04:24→15:08)
[2022-09-14] MEDS: HYDROmorphone INJ 0.5 MG/0.5 ML SYR IV PRN ×6 (05:22→22:18)
[2022-09-14 07:01] LABS: Alkaline Phosphatase 184 U/L (34-104); Anion Gap 10 (3-11); Aspartate Aminotransferase 58 U/L (13-39); BUN Creatinine Ratio 33.8 (10-20); Bilirubin,Total 1.1 mg/dl (0.2-1.0); Blood Urea Nitrogen 22 mg/dl (6-23); Carbon Dioxide 27 mmol/L (21-32); Chloride 103 mmol/L (98-107); Creatinine Clr Calc Pharmacy 169.4 ml/min; Est GFR (African American) > 150.0 ml/min; Est GFR (Non-African American) 134.3 ml/min; Glucose 113 mg/dl (70-99(Fasting)); Phosphorus 3.3 mg/dl (2.5-4.9); Potassium 3.8 mmol/L (3.5-5.1); Sodium 140 mmol/L (136-145)
[2022-09-14] MEDS: ERTAPENEM SODIUM 1,000 MG in SYRINGE 0 ML IV SCH (08:29)
--- NOTE | 2022-09-14 09:06 | Surgery Progress Note ---
Date of Service September 14, 2022 Assessment & Plan (1) H/O abdominal surgery: Plan: Armand has healed nicely from his scar revision. He should continue with daily xeroform dressing until discharge, follow-up with [facility] for further scar care one discharged home. Diet advancement and discharge planning per Gen Surg. Plan I personally saw and examined this patient and agree with the assessment and plan. EAP Admission and Anticipated Discharge Date Admission Date: August 24, 2022 Subjective Armand was seen today with Dr. Flores. Nursing has continued with daily xeroform dressing to his incision. Earle is currently on clear liquid diet. Is passing flatus and BM. He admits to pushing it with the diet yesterday, felt nauseous. NGT still in place. Physical Exam Physical Exam: incision is CDI, well approximated. Open portion at lower pole is now healed, mildly hypertrophic. abd soft Results & Data ([facility]) Vital Signs (Past 12 Hours) Vital Signs Temp Pulse Resp BP Pulse Ox O2 Del Method 09/14/22 07:27 37.0 C 85 16 108/72 97 Room Air PG Care Time/CCT Total # of Minutes Spent Total Time Spent with Patient: Total time spent is greater than 50% in coordination of care (as documented) at patient's floor/unit and/or counseling patient: Coding Level of Care Code 50119 Post Operative Follow-Up Diagnoses H/O abdominal surgery Z98.890
[2022-09-14] MEDS: PANTOprazole 40 MG in SYRINGE 0 ML IV SCH (11:16)
--- NOTE | 2022-09-14 11:16 | Surgery Progress Note ---
Date of Service September 14, 2022 Assessment & Plan (1) SBO (small bowel obstruction): Plan: Difficult and frustrating scenario. With a hostile abdomen certainly now would not be the opportune time to reoperate. He does seem to be slowly improving. He was able to keep his NG tube clamped for almost 3 days and had a large amount of p.o. intake he had another bowel movement yesterday as well as increasing his flatus. Currently not having any pain. We discussed 2 options. One would be to place a gastrostomy tube and send him home with a venting gastrostomy tube and TPN for several weeks. The other option would be to keep him here in the hospital and monitor his progress. Potentially I would consider operative intervention later in the week next week at the 4-week [place]. Currently not interested in going home as his living scenario he does not believe is conducive because of roommates and how crowded his room is etc. We will continue to monitor him. We may intermittently try feeding and clamping the NG tube as well as intermittent x-rays. If he does not dramatically improve by middle of next week we will likely perform an operative intervention. (2) H/O abdominal surgery: Admission and Anticipated Discharge Date Admission Date: August 24, 2022 Subjective Patient seen. He was having some distention and cramping yesterday so the NG tube was placed back to suction. He now feels much better. He did have another good sized bowel movement yesterday and is passing flatus. Physical Exam Physical Exam: Alert. No acute distress NG tube out about 750 cc after hooked back to suction yesterday Abdomen soft nontender incision looks good Results & Data ([facility]) Vital Signs (Past 12 Hours) Vital Signs Temp Pulse Resp BP Pulse Ox O2 Del Method 09/14/22 07:27 37.0 C 85 16 108/72 97 Room Air PG Care Time/CCT Total # of Minutes Spent Total Time Spent with Patient: Total time spent is greater than 50% in coordination of care (as documented) at patient's floor/unit and/or counseling patient: Coding Level of Care Code 98570 Post Operative Follow-Up Diagnoses SBO (small bowel obstruction) K56.609 H/O abdominal surgery Z98.890
[2022-09-14] MEDS ORDERED: CENTRAL TPN IV SCH (16:00)
[2022-09-14] MEDS ORDERED: [UNRECOGNIZED DRUG - OTHER] IV SCH (16:00)
[2022-09-14] MEDS: LORazepam 0.5 MG TAB PO PRN (22:17)
[2022-09-15] MEDS: HYDROmorphone INJ 0.5 MG/0.5 ML SYR IV PRN ×6 (03:56→21:35)
[2022-09-15] MEDS: ERTAPENEM SODIUM 1,000 MG in SYRINGE 0 ML IV SCH (07:40)
--- NOTE | 2022-09-15 10:04 | Surgery Progress Note ---
Date of Service September 15, 2022 Assessment & Plan (1) SBO (small bowel obstruction): Plan: He is not worsening and actually seems to be slowly improving. I will repeat his KUB tomorrow. Continue TPN. We will keep NG tube in place in case we need to reconnect it to intermittent suction. Admission and Anticipated Discharge Date Admission Date: August 24, 2022 Subjective Patient seen. Feeling okay. Has had NG tube clamped since yesterday afternoon. He is passing gas and has had another bowel movement. Physical Exam Physical Exam: Alert. No acute distress Exam is unchanged. Abdomen is soft nondistended nontender. Incision looks good Results & Data ([facility]) Vital Signs (Past 12 Hours) Vital Signs Temp Pulse Resp BP Pulse Ox O2 Del Method 09/15/22 07:36 36.5 C 77 16 115/64 97 Room Air PG Care Time/CCT Total # of Minutes Spent Total Time Spent with Patient: Total time spent is greater than 50% in coordination of care (as documented) at patient's floor/unit and/or counseling patient: Coding Level of Care Code 47985 Post Operative Follow-Up Diagnoses SBO (small bowel obstruction) K56.609
[2022-09-15] MEDS: PANTOprazole 40 MG in SYRINGE 0 ML IV SCH (10:57)
[2022-09-15] MEDS ORDERED: CENTRAL TPN IV SCH ×2 (11:30→16:00)
[2022-09-15] MEDS ORDERED: [UNRECOGNIZED DRUG - OTHER] IV SCH ×2 (11:30→16:00)
[2022-09-15] MEDS ORDERED: CLINOLIPID 20% IV FAT EMULSION 250 ML IV SCH (16:00)
[2022-09-15] MEDS: LORazepam 0.5 MG TAB PO PRN (21:34)
[2022-09-15] MEDS: STOP CLINOLIPID SCH (22:10)
[2022-09-16] MEDS: HYDROmorphone INJ 0.5 MG/0.5 ML SYR IV PRN ×5 (06:03→21:15)
[2022-09-16 07:33] LABS: Anion Gap 8 (3-11); BUN Creatinine Ratio 33.3 (10-20); Blood Urea Nitrogen 19 mg/dl (6-23); Calcium 9.2 mg/dl (8.5-10.1); Carbon Dioxide 28 mmol/L (21-32); Chloride 104 mmol/L (98-107); Creatinine Clr Calc Pharmacy 193.2 ml/min; Est GFR (African American) > 150.0 ml/min; Est GFR (Non-African American) 141.7 ml/min; Glucose 100 mg/dl (70-99(Fasting)); Magnesium 1.9 mg/dl (1.7-2.4); Phosphorus 3.2 mg/dl (2.5-4.9); Potassium 3.7 mmol/L (3.5-5.1); Sodium 140 mmol/L (136-145)
[2022-09-16] MEDS: oxyCODONE HCL SOLN 5 MG/5 ML UDC PO PRN (08:40)
--- NOTE | 2022-09-16 10:06 | XRay Report ---
KUB HISTORY: Acute generalized abdominal pain with small bowel obstruction sbo COMPARISON: KUB 09/13/2022 FINDINGS: Distal tip of enteric tube is again noted projected superiorly within the gastric fundus. S urgical suture material within the right abdomen. There is persistent small bowel distention which conde s mildly improved from prior. No pneumoperitoneum or urolith. Partially imaged ORIF changes of the pr oximal left femur. IMPRESSION: 1. Unchanged positioning of the enteric tube. 2. Mildly decreased small bowel distention suggestive of resolving small bowel obstruction. ACT 112: Negative or not required by law. The above report was generated using voice recognition software. It may contain grammatical, syntax o r spelling errors. Electronically signed by: Juanito Crouch M.D. 09/16/2022 10:05 AM
--- NOTE | 2022-09-16 11:18 | Surgery Progress Note ---
Date of Service September 16, 2022 Assessment & Plan (1) H/O abdominal surgery: (2) SBO (small bowel obstruction): Plan: Doing okay. His x-ray showed some improvement. We will continue to keep NG clamped as long as we can. Continue to ambulate. Stay just on clear liquids for now. Admission and Anticipated Discharge Date Admission Date: August 24, 2022 Subjective Patient seen. Doing okay. He continues to pass some flatus. He has had his NG tube clamped now for over 2 days. He is drinking a fair amount. He has had no nausea or vomiting. He continues to have some lower abdominal cramping. Physical Exam Physical Exam: Alert. No acute distress Abdomen is soft. Minimal distention. Wound looks good Results & Data Vital Signs (Past 12 Hours) Vital Signs Temp Pulse Resp BP Pulse Ox O2 Del Method 09/16/22 08:11 36.6 C 69 18 96/58 L 96 Room Air PG Care Time/CCT Total # of Minutes Spent Total Time Spent with Patient: Total time spent is greater than 50% in coordination of care (as documented) at patient's floor/unit and/or counseling patient: Coding Level of Care Code 52724 Post Operative Follow-Up Diagnoses H/O abdominal surgery Z98.890 SBO (small bowel obstruction) K56.609
[2022-09-16] MEDS: PANTOprazole 40 MG in SYRINGE 0 ML IV SCH (13:06)
[2022-09-16] MEDS ORDERED: [UNRECOGNIZED DRUG - OTHER] IV SCH (16:00)
[2022-09-16] MEDS ORDERED: CENTRAL TPN IV SCH (16:00)
[2022-09-16] MEDS: LORazepam 0.5 MG TAB PO PRN (21:14)
[2022-09-17] MEDS: HYDROmorphone INJ 0.5 MG/0.5 ML SYR IV PRN ×5 (00:47→20:14)
[2022-09-17] MEDS: ACETAMINOPHEN 1,000 MG/100 ML VIAL IV PRN ×2 (08:21→18:28)
[2022-09-17 08:24] LABS: Hematocrit (blood only) 35.2 % (42.0-52.0); Hemoglobin 11.5 g/dl (14.0-18.0); Mean Corpuscular Hemoglobin 28.7 pg (25.0-34.0); Mean Corpuscular Hgb Conc 32.7 g/dL (32.0-36.0); Mean Corpuscular Volume 87.8 fL (80.0-100.0); Mean Platelet Volume 9.8 fL (9.4-12.4); Platelet Count 391 K/uL (130-400); RDW Coefficient of Variation 13.7 % (11.5-14.5); RDW Standard Deviation 44.1 fL (36.4-46.3); Red Blood Count 4.01 M/uL (4.70-6.10); White Blood Count 8.09 K/ul (4.8-10.8)
--- NOTE | 2022-09-17 08:28 | Surgery Progress Note ---
Date of Service September 17, 2022 Assessment & Plan (1) SBO (small bowel obstruction): Plan: Plan will remain the same. I will recheck a KUB on Tuesday. We will probably do another contrast study on Tuesday. Unless something changes we will probably have to reoperate middle to late next week. Because of the hostile abdomen I want to wait at least for 4 full weeks before operating. (2) H/O abdominal surgery: Admission and Anticipated Discharge Date Admission Date: August 24, 2022 Subjective Patient seen. Feeling better this morning but unfortunately yesterday had to have his NG tube put back up to suction for cramping and distention. No bowel movement overnight but he continues to pass flatus. Physical Exam Physical Exam: Alert. No acute distress His incision looks good Abdomen soft with minimal lower abdominal tenderness Results & Data Vital Signs (Past 12 Hours) Vital Signs Temp Pulse Resp BP Pulse Ox O2 Del Method 09/17/22 07:04 36.7 C 78 16 93/61 L 100 Room Air 09/16/22 21:10 36.8 C 74 18 115/68 100 Room Air PG Care Time/CCT Total # of Minutes Spent Total Time Spent with Patient: Total time spent is greater than 50% in coordination of care (as documented) at patient's floor/unit and/or counseling patient: Coding Level of Care Code 98826 Post Operative Follow-Up Diagnoses SBO (small bowel obstruction) K56.609 H/O abdominal surgery Z98.890
[2022-09-17 08:42] LABS: Anion Gap 6 (3-11); BUN Creatinine Ratio 29.7 (10-20); Blood Urea Nitrogen 19 mg/dl (6-23); Calcium 9.1 mg/dl (8.5-10.1); Carbon Dioxide 29 mmol/L (21-32); Chloride 106 mmol/L (98-107); Creatinine Clr Calc Pharmacy 172.1 ml/min; Est GFR (African American) > 150.0 ml/min; Est GFR (Non-African American) 135.1 ml/min; Glucose 108 mg/dl (70-99(Fasting)); Magnesium 1.9 mg/dl (1.7-2.4); Phosphorus 3.2 mg/dl (2.5-4.9); Potassium 4.1 mmol/L (3.5-5.1); Sodium 141 mmol/L (136-145); Triglycerides 159 mg/dl (0-150)
[2022-09-17] MEDS: PANTOprazole 40 MG in SYRINGE 0 ML IV SCH (11:30)
[2022-09-17] MEDS ORDERED: BACITRACIN OINT 0.9 GM PKT EXT PRN (11:41)
[2022-09-17] MEDS ORDERED: [UNRECOGNIZED DRUG - OTHER] IV SCH (16:00)
[2022-09-17] MEDS ORDERED: CENTRAL TPN IV SCH (16:00)
[2022-09-17] MEDS: LORazepam 0.5 MG TAB PO PRN (20:14)
[2022-09-18] MEDS: HYDROmorphone INJ 0.5 MG/0.5 ML SYR IV PRN ×6 (01:57→22:16)
[2022-09-18 06:35] LABS: Anion Gap 6 (3-11); BUN Creatinine Ratio 29.9 (10-20); Blood Urea Nitrogen 20 mg/dl (6-23); Calcium 9.2 mg/dl (8.5-10.1); Carbon Dioxide 29 mmol/L (21-32); Chloride 107 mmol/L (98-107); Creatinine Clr Calc Pharmacy 164.4 ml/min; Est GFR (African American) > 150.0 ml/min; Est GFR (Non-African American) 132.6 ml/min; Glucose 107 mg/dl (70-99(Fasting)); Phosphorus 3.6 mg/dl (2.5-4.9); Sodium 142 mmol/L (136-145)
[2022-09-18] MEDS: PANTOprazole 40 MG in SYRINGE 0 ML IV SCH (12:25)
--- NOTE | 2022-09-18 14:32 | Surgery Progress Note ---
Date of Service September 18, 2022 Assessment & Plan (1) H/O abdominal surgery: Plan: hopefully ngt out in AM per primary team ambulate good progress 08/21/2022 2:[address] Mosley F/Isael Complex Scar Revision Abdomen Surgeon: Anny Flores Side: Not Applicable s Complex scar revision with small bowel resection x2, Closure multiple small bowel enterotomies, extensive enterolysis and abdominal wall reconstruction stable may pull out NG tube tomorrow once pass more gas or stool, walking on hallway, will F/U, Admission and Anticipated Discharge Date Admission Date: August 24, 2022 Supervising Physician Co-Signing Physician Notes Dr. Hilariopatient slowly improving, moving his bowels, KUB looks improved to me Tolerating NG with p.o. intake Continue TPN Subjective Patient seen. Feeling better this morning but unfortunately yesterday had to have his NG tube put back up to suction for cramping and distention. No bowel movement overnight but he continues to pass flatus. 09/18/2022 2:[address] Dimitri Kate/Isael, Complex Scar Revision Abdomen Surgeon: Anny Flores Side: Not Applicable s Complex scar revision with small bowel resection x2, Closure multiple small bowel enterotomies, extensive enterolysis and abdominal wall reconstruction pt is stable, no significant abdominal pain, passed some gas, no fever, NG tube minimal, Review of Systems Constitutional: no fever and no chills Respiratory: no cough and no dyspnea Cardiovascular: no chest pain Gastrointestinal: + abdominal pain; no nausea and no vomiting Genitourinary: no dysuria Physical Exam Constitutional: WD/WN, vitals as above Neck: trachea midline, no thyromegaly Respiratory: normal respiratory effort, lungs clear to auscultation Cardiovascular: RRR, no murmur, no edema Gastrointestinal (Abdomen): soft, middle line incision intact, no redness, mild tenderness at incision site, no rebound pain, no distend, BS +, Neurologic: patellar DTR's 2+ bilat, sensation intact Psychiatric: A+Ox3, euthymic affect Results & Data Vital Signs (Past 12 Hours) Vital Signs Temp Pulse Resp BP Pulse Ox O2 Del Method 09/18/22 14:29 36.8 C 65 16 94/60 L 98 Room Air 09/18/22 07:59 36.8 C 64 16 100/65 99 Room Air Laboratory Results Abnormal lab results 09/17/22 09/17/22 09/18/22 Range/Units 18:01 23:53 05:26 BUN/Creatinine Ratio (10-20) Glucose (70-99(Fasting)) mg/dl POC Glucose 106 H 109 H 109 H (70-99) mg/dl 09/18/22 Range/Units 05:31 BUN/Creatinine Ratio 29.9 H (10-20) Glucose 107 H (70-99(Fasting)) mg/dl POC Glucose (70-99) mg/dl
[2022-09-18] MEDS ORDERED: [UNRECOGNIZED DRUG - OTHER] IV SCH (16:00)
[2022-09-18] MEDS ORDERED: CENTRAL TPN IV SCH (16:00)
[2022-09-18] MEDS: LORazepam 0.5 MG TAB PO PRN (21:01)
[2022-09-18] MEDS: ACETAMINOPHEN 1,000 MG/100 ML VIAL IV PRN (21:05)
[2022-09-19] MEDS: HYDROmorphone INJ 0.5 MG/0.5 ML SYR IV PRN ×7 (04:04→23:36)
[2022-09-19] MEDS: ACETAMINOPHEN 1,000 MG/100 ML VIAL IV PRN ×2 (05:33→23:36)
[2022-09-19 06:20] LABS: BUN Creatinine Ratio 28.9 (10-20); Calcium 9.2 mg/dl (8.5-10.1); Creatinine Clr Calc Pharmacy 144.9 ml/min; Est GFR (African American) 145.9 ml/min; Est GFR (Non-African American) 125.9 ml/min; Phosphorus 3.9 mg/dl (2.5-4.9); Potassium 3.9 mmol/L (3.5-5.1)
[2022-09-19] MEDS: PANTOprazole 40 MG in SYRINGE 0 ML IV SCH (10:58)
--- NOTE | 2022-09-19 12:14 | Surgery Progress Note ---
Date of Service September 19, 2022 Assessment & Plan (1) H/O abdominal surgery: Plan: hopefully ngt out in AM per primary team ambulate good progress 08/21/2022 2:[address] Dimitri Kate/Isael Complex Scar Revision Abdomen Surgeon: Anny Flores Side: Not Applicable s Complex scar revision with small bowel resection x2, Closure multiple small bowel enterotomies, extensive enterolysis and abdominal wall reconstruction stable may pull out NG tube tomorrow once pass more gas or stool, walking on hallway, will F/U, 09/19/2022 12:16 PM doing better, passed BM today may remove NG tube tomorrow per- surgeon, continue treatment, will F/U, Admission and Anticipated Discharge Date Admission Date: August 24, 2022 Supervising Physician Co-Signing Physician Notes Dr. Hilariopatient slowly improving, moving his bowels, KUB looks improved to me Tolerating NG with p.o. intake Continue TPN Subjective Patient seen. Feeling better this morning but unfortunately yesterday had to have his NG tube put back up to suction for cramping and distention. No bowel movement overnight but he continues to pass flatus. 09/18/2022 2:[address] Mosley F/Isael, Complex Scar Revision Abdomen Surgeon: Anny Flores Side: Not Applicable s Complex scar revision with small bowel resection x2, Closure multiple small bowel enterotomies, extensive enterolysis and abdominal wall reconstruction pt is stable, no significant abdominal pain, passed some gas, no fever, NG tube minimal, 09/19/2022 12:13PM Dr. Mosley pt feels better, no significant abdominal pain, passed Bm today, no fever, NG 60 ml. Review of Systems Constitutional: no fever and no chills Respiratory: no cough and no dyspnea Cardiovascular: no chest pain Gastrointestinal: + abdominal pain; no nausea and no vomiting Genitourinary: no dysuria Physical Exam Constitutional: WD/WN, vitals as above Neck: trachea midline, no thyromegaly Respiratory: normal respiratory effort, lungs clear to auscultation Cardiovascular: RRR, no murmur, no edema Gastrointestinal (Abdomen): soft, incision intact, NT, ND, BS +, Neurologic: patellar DTR's 2+ bilat, sensation intact Psychiatric: A+Ox3, euthymic affect Results & Data Vital Signs (Past 12 Hours) Vital Signs Temp Pulse Resp BP Pulse Ox O2 Del Method 09/19/22 07:45 36.6 C 74 16 100/63 99 Room Air Laboratory Results Abnormal lab results 09/18/22 09/18/22 09/19/22 Range/Units 18:02 23:34 05:25 BUN/Creatinine Ratio 28.9 H (10-20) Glucose 103 H (70-99(Fasting)) mg/dl POC Glucose 112 H 106 H (70-99) mg/dl 09/19/22 Range/Units 05:33 BUN/Creatinine Ratio (10-20) Glucose (70-99(Fasting)) mg/dl POC Glucose 104 H (70-99) mg/dl
[2022-09-19] MEDS ORDERED: CENTRAL TPN IV SCH (16:00)
[2022-09-19] MEDS ORDERED: [UNRECOGNIZED DRUG - OTHER] IV SCH (16:00)
[2022-09-19] MEDS: LORazepam 0.5 MG TAB PO PRN (20:09)
[2022-09-20] MEDS: HYDROmorphone INJ 0.5 MG/0.5 ML SYR IV PRN ×7 (02:41→23:04)
[2022-09-20 06:40] LABS: Anion Gap 7 (3-11); BUN Creatinine Ratio 32.4 (10-20); Blood Urea Nitrogen 22 mg/dl (6-23); Calcium 9.1 mg/dl (8.5-10.1); Carbon Dioxide 28 mmol/L (21-32); Chloride 106 mmol/L (98-107); Creatinine Clr Calc Pharmacy 161.9 ml/min; Est GFR (African American) > 150.0 ml/min; Est GFR (Non-African American) 131.8 ml/min; Glucose 104 mg/dl (70-99(Fasting)); Phosphorus 3.8 mg/dl (2.5-4.9); Sodium 141 mmol/L (136-145)
[2022-09-20 06:45] LABS: Basophils # (auto) 0.04 K/uL (0-0.2); Basophils % (auto) 0.4 %; Eosinophils # (auto) 0.24 K/uL (0-0.50); Eosinophils % (auto) 2.5 %; Hematocrit (blood only) 38.2 % (42.0-52.0); Hemoglobin 12.4 g/dl (14.0-18.0); Immature Granulocytes # (auto) 0.05 K/uL (0.01-0.20); Immature Granulocytes % (auto) 0.5 %; Lymphocytes # (auto) 1.83 K/uL (1.2-3.4); Lymphocytes % (auto) 19.2 %; Mean Corpuscular Hemoglobin 28.4 pg (25.0-34.0); Mean Corpuscular Hgb Conc 32.5 g/dL (32.0-36.0); Mean Corpuscular Volume 87.4 fL (80.0-100.0); Mean Platelet Volume 10.7 fL (9.4-12.4); Monocytes % (auto) 7.3 %; Neutrophils # (auto) 6.69 K/uL (1.40-6.50); Neutrophils % (auto) 70.1 %; Platelet Count 328 K/uL (130-400); RDW Standard Deviation 44.7 fL (36.4-46.3); Red Blood Count 4.37 M/uL (4.70-6.10); White Blood Count 9.55 K/ul (4.8-10.8)
[2022-09-20] MEDS: PANTOprazole 40 MG in SYRINGE 0 ML IV SCH (10:42)
--- NOTE | 2022-09-20 11:29 | Surgery Progress Note ---
Date of Service September 20, 2022 Assessment & Plan (1) SBO (small bowel obstruction): Plan: Patient doing fairly well.. had a decent wknd. is passing flatus, had 2 recent BMs. Over the last 2+ days he only required NGT to suction yesterday x1 hour for feeling of abdominal fullness/discomfort after overdoing it on the liquids per patient. He is currently taking it easy with small frequent sips of clears KUB obtained today and is pending Regardless, we will order a SBFT tomorrow morning for a better picture of his bowels and passage of contrast...if still showing signs of obstruction we will tentatively place him on the schedule for for diagnostic laparoscopy Continue NGT clamped and clear liquids for now (2) H/O abdominal surgery: Admission and Anticipated Discharge Date Admission Date: August 24, 2022 Subjective Patient seems to have had a decent weekend. He reports passing 2 liquid BMs one over wknd and once this AM. Passing flatus along with this. Today no nausea. Pain controlled. He did require NGT to suction yesterday evening for 1 hour after overdoing it on the liquids per patient. Physical Exam Physical Exam: awake/alert, no distress Respiratory: normal respiratory effort Gastrointestinal (Abdomen): Inspection/Auscultation: + abdominal surgical incision (c/d/i); abdomen not distended Percussion/Palpation: abdomen soft; abdomen nontender Results & Data Vital Signs (Past 12 Hours) Vital Signs Temp Pulse Resp BP Pulse Ox O2 Del Method 09/20/22 07:50 36.5 C 71 16 98/62 L 97 Room Air PG Care Time/CCT Total # of Minutes Spent Total Time Spent with Patient: Total time spent is greater than 50% in coordination of care (as documented) at patient's floor/unit and/or counseling patient: Coding Level of Care Code 85215 Post Operative Follow-Up Diagnoses SBO (small bowel obstruction) K56.609 H/O abdominal surgery Z98.890
--- NOTE | 2022-09-20 12:22 | XRay Report ---
KUB CLINICAL HISTORY: Recent surgery. History small bowel obstruction. FINDINGS: 2 AP supine abdominal radiographs are compared to study dated 09/16/2022 and correlated with abdominal CT dated 09/07/2022. An enteric tube projects below the diaphragm over the gastric fundus. S uture material projects over the right midabdomen and the left lower quadrant. There is a nonspecific abdominal bowel gas pattern. Mildly distended loops of small bowel are seen in the left upper quadra nt. No evidence of intraperitoneal free air is identified on these supine images. There are no abnorm al abdominal calcifications. The bony structures appear intact. Postsurgical change is noted in the l eft proximal femur. IMPRESSION: 1. An enteric tube is unchanged in position. 2. Nonspecific abdominal bowel gas pattern. There is persistent gaseous distention of small bowel loo ps in the left upper quadrant. This has improved from previous Electronically signed by: Mars Velazquez M.D. 09/20/2022 12:20 PM
[2022-09-20] MEDS ORDERED: [UNRECOGNIZED DRUG - OTHER] IV SCH (16:00)
[2022-09-20] MEDS ORDERED: CENTRAL TPN IV SCH (16:00)
[2022-09-20] MEDS ORDERED: CLINOLIPID 20% IV FAT EMULSION 250 ML IV SCH (16:00)
[2022-09-20] MEDS: LORazepam 0.5 MG TAB PO PRN (19:45)
[2022-09-20] MEDS: STOP CLINOLIPID SCH (22:42)
[2022-09-21] MEDS: HYDROmorphone INJ 0.5 MG/0.5 ML SYR IV PRN ×5 (08:01→21:00)
[2022-09-21] MEDS: ACETAMINOPHEN 1,000 MG/100 ML VIAL IV PRN (10:10)
[2022-09-21] MEDS: PANTOprazole 40 MG in SYRINGE 0 ML IV SCH (10:15)
--- NOTE | 2022-09-21 11:00 | Fluoroscopy Report ---
[place] small bowel follow through CLINICAL HISTORY: eval possible sbo,passage of contrast h/o abd surg TECHNIQUE: [employer]ne[employer] images were obtained. The patient drank barium followed by serial abdominal xray im ages. COMPARISON: CT abdomen pelvis 09/07/2022 FINDINGS: Passage of contrast is somewhat delayed however at 2 hours 15 minutes there is definite passage of co ntrast past the ileocolic anastomosis with suggestion of contrast reaching the distal anastomosis as well. IMPRESSION: Findings are compatible with low-grade small bowel obstruction with delayed but satisfactory passage of contrast to the ileocolic anastomosis and beyond. ACT 112: Negative or not required by law. Electronically signed by: Marty Melgar M.D. 09/21/2022 10:59 AM
--- NOTE | 2022-09-21 15:14 | Surgery Progress Note ---
Date of Service September 21, 2022 Assessment & Plan (1) SBO (small bowel obstruction): Plan: Patient underwent SBFT study today which revealed findings of low-grade small bowel obstruction with delayed but satisfactory passage of contrast to the ileocolic anastomosis and beyond - He did report pain/distention after receiving NGT contrast and required it to be replaced to suction temporarily with relief of symptoms. - Can trial clamping again and see how he fairs. Continue current management, NGT clamped as able, clear liquids. Repeat KUB tomorrow - Encouraging that he was having + bowel function over the wknd and that contrast seems to be working its way through. Little set back after SBFT contrast this AM - Will f/u tomorrow Admission and Anticipated Discharge Date Admission Date: August 24, 2022 Subjective Patient states during his imaging study after contrast administration he developed feelings of fullness and uncomfortableness in the abdomen. The NGT was re-connected to suction with fair amount of output. He has since been feeling much better. Reports last BM and flatus was yesterday, nothing today. Currently no nausea/pain since NGT reconnected. Physical Exam Physical Exam: awake/alert, no distress Gastrointestinal (Abdomen): Inspection/Auscultation: + abdominal surgical incision (c/d/i); abdomen not distended Percussion/Palpation: abdomen soft; abdomen nontender ngt with light brown output in canister Results & Data Vital Signs (Past 12 Hours) Vital Signs Temp Pulse Resp BP Pulse Ox O2 Del Method 09/21/22 14:52 36.4 C L 74 18 111/71 95 Room Air 09/21/22 07:58 36.6 C 74 16 111/78 97 Room Air PG Care Time/CCT Total # of Minutes Spent Total Time Spent with Patient: Total time spent is greater than 50% in coordination of care (as documented) at patient's floor/unit and/or counseling patient: Coding Level of Care Code 50829 Post Operative Follow-Up Diagnoses SBO (small bowel obstruction) K56.609
[2022-09-21] MEDS ORDERED: CENTRAL TPN IV SCH (16:00)
[2022-09-21] MEDS ORDERED: [UNRECOGNIZED DRUG - OTHER] IV SCH (16:00)
[2022-09-21] MEDS: LORazepam 0.5 MG TAB PO PRN (21:00)
[2022-09-21] MEDS: STOP CLINOLIPID SCH (21:17)
[2022-09-22] MEDS: HYDROmorphone INJ 0.5 MG/0.5 ML SYR IV PRN ×8 (00:12→22:09)
[2022-09-22 07:12] LABS: BUN Creatinine Ratio 35.1 (10-20); Bilirubin,Total 0.7 mg/dl (0.2-1.0); Creatinine Clr Calc Pharmacy 148.5 ml/min; Est GFR (African American) 147.5 ml/min; Est GFR (Non-African American) 127.3 ml/min; Magnesium 2.1 mg/dl (1.7-2.4); Phosphorus 4.4 mg/dl (2.5-4.9); Potassium 4.1 mmol/L (3.5-5.1)
[2022-09-22] MEDS: PANTOprazole 40 MG in SYRINGE 0 ML IV SCH (09:20)
--- NOTE | 2022-09-22 10:08 | Surgery Progress Note ---
Date of Service September 22, 2022 Assessment & Plan (1) SBO (small bowel obstruction): Plan: Even though his small bowel follow-through showed some improvement clinically he is not doing that well. He is unable to drink even clear liquids for more than a day before needing his NG tube hooked back to suction. At this point we are over 4 weeks. I believe we are going to have to intervene surgically. I want to perform a laparoscopy to try and avoid any injury to bowel during laparotomy. I doubt I would be able to successfully fix the small bowel obstruction laparoscopically and he will likely need an incision although a laparoscopy may help guide the placement of incision to avoid further bowel injury. We discussed potential risks which include bleeding infection injury to bowel or other organs DVT PE TX CVA etc. Following our discussion I answered his questions. He is agreeable. We will proceed tomorrow with diagnostic laparoscopy possible laparotomy with release of small bowel obstruction and surgery as needed. (2) H/O abdominal surgery: Admission and Anticipated Discharge Date Admission Date: August 24, 2022 Subjective Patient seen. He is not doing great ever since the small bowel follow-through. He had some pain and nausea yesterday needing his NG tube needing to be hooked up to suction. He did okay overnight but again had nausea and needed to be hooked up again. Apparently has been 1800 cc out of his NG tube overnight. He has had no bowel movements since the small bowel follow-through Physical Exam Physical Exam: Alert. No acute distress Abdomen is soft. Nontender. Mild distention Results & Data Vital Signs (Past 12 Hours) Vital Signs Temp Pulse Resp BP Pulse Ox O2 Del Method 09/22/22 07:43 36.4 C L 75 16 115/71 98 Room Air PG Care Time/CCT Total # of Minutes Spent Total Time Spent with Patient: Total time spent is greater than 50% in coordination of care (as documented) at patient's floor/unit and/or counseling patient: Coding Level of Care Code 65438 Post Operative Follow-Up Diagnoses SBO (small bowel obstruction) K56.609 H/O abdominal surgery Z98.890
--- NOTE | 2022-09-22 11:06 | Pharmacy Report ---
PHA: Parenteral Nutrition Con - Date of Service September 22, 2022 - [facility] was consulted on 08/31/22 to manage parenteral nutrition orders for this patient. - Subjective The patient is currently on day 23 of [facility] parenteral nutrition for SBO for 4 weeks. Surgery to intervene at this time, diagnostic laparoscopy and possible laparotomy with release of SBO tomorrow. - Objective Height: 5 ft 8.5 in Weight: 69.4 kg Diet: NPO Intake & Output (24hrs):: Intake & Output 09/20/22 09/21/22 09/22/22 09/23/22 06:59 06:59 06:59 06:59 Intake Total 1877 / 1877 2329.64 / 2329.64 1620.913 / 1620.913 Output Total 802 / 802 1800 / 1800 Balance 1075 / 1075 2326.64 / 2326.64 -179.087 / -179.087 Weight 70.1 kg 70.1 kg 69.4 kg Laboratory Data (Last 24 Hr):: 09/22/22 05:58 Sodium 140 Potassium 4.1 Chloride 103 Carbon Dioxide 27 BUN 26 H Creatinine 0.74 Glucose 102 H Calcium 10.0 Phosphorus 4.4 Magnesium 2.1 Total Bilirubin 0.7 AST 59 H ALT 110 H Alkaline Phosphatase 152 H Triglycerides 158 H Nutrition Assessment:: Please refer to the Notes section of the EMR for 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 - Assessment * Note elevated LFTs and TGs, continue lipids 2x/week, could consider cyclic TPN to help improve LFTs, but will hold off at this time d/t surgery tomorrow * Bilirubin normal, continue trace elements * Surgery scheduled for tomorrow for unresolved SBO - Plan For day 23 of PN administration, the following will be ordered: Macronutrients Amino acids 115 grams/day Dextrose 202 grams/day Lipids -- grams/day (50g 2x/week, Mondays and ) Micronutrients Combined electrolytes 20 mL - contains 35 mEq Na, 20 meq K, 4.5 mEq Ca, 5 mEq Mg, 35 mEq Cl, 29.5 mEq acetate per 20 mL Sodium phosphate 6 MMol (decreased from 9mmol for phos level trending up) Sodium acetate 80 mEq Potassium chloride 20 mEq Potassium acetate 40 mEq Multivitamins 10 mL - 3x/week - MWF (Due to drug shortage) Trace Elements 1 mL Additional additives: Folic acid 1mg, thiamine 100mg Total volume 1544 mL to be infused over 24 hrs will provide 1146 kcal/day Labs, as indicated, will be ordered per protocol Pharmacy will continue to follow and adjust parenteral nutrition orders on a daily basis. Thank you for allowing us to participate in the care of this patient.
[2022-09-22] MEDS ORDERED: [UNRECOGNIZED DRUG - OTHER] IV SCH (16:00)
[2022-09-22] MEDS ORDERED: CENTRAL TPN IV SCH (16:00)
[2022-09-22] MEDS: LORazepam 0.5 MG TAB PO PRN (22:08)
[2022-09-22] MEDS: STOP CLINOLIPID SCH (22:09)
[2022-09-23] MEDS: HYDROmorphone INJ 0.5 MG/0.5 ML SYR IV PRN ×6 (04:33→23:01)
--- NOTE | 2022-09-23 09:56 | Surgery Progress Note ---
Date of Service September 23, 2022 Assessment & Plan (1) SBO (small bowel obstruction): Plan: We had a long discussion. Patient would prefer to wait on surgery and I agree with this. Waiting longer cannot hurt and can only help. He continues to slowly improve. Even if we end up having to do surgery this admission the farther out from his original surgery the easier and safer it would be. We will continue to keep the NG tube clamped and try liquids. If he goes 3 days without needing the NG tube reconnected we can take it out and let him try full liquids. For now we will cancel his surgery continue clear liquids and keep his NG tube clamped. Admission and Anticipated Discharge Date Admission Date: August 24, 2022 Subjective pt seen. had 4 bm's since yesterday. NGT has been clamped for over 24 hours. no nausea. fatmata clears. Physical Exam Physical Exam: alert. nad. abd: soft. non-distended. Results & Data Vital Signs (Past 12 Hours) Vital Signs Temp Pulse Resp BP Pulse Ox O2 Del Method 09/23/22 07:34 36.8 C 74 16 99/67 L 100 Room Air 09/22/22 22:22 36.5 C 83 16 134/88 96 Room Air PG Care Time/CCT Total # of Minutes Spent Total Time Spent with Patient: Total time spent is greater than 50% in coordination of care (as documented) at patient's floor/unit and/or counseling patient: Coding Level of Care Code 13107 Post Operative Follow-Up Diagnoses SBO (small bowel obstruction) K56.609
[2022-09-23] MEDS: PANTOprazole 40 MG in SYRINGE 0 ML IV SCH (10:54)
[2022-09-23] MEDS ORDERED: CLINOLIPID 20% IV FAT EMULSION 250 ML IV SCH (16:00)
[2022-09-23] MEDS ORDERED: [UNRECOGNIZED DRUG - OTHER] IV SCH (16:00)
[2022-09-23] MEDS ORDERED: CENTRAL TPN IV SCH (16:00)
[2022-09-23] MEDS: ACETAMINOPHEN 1,000 MG/100 ML VIAL IV PRN (17:06)
[2022-09-23] MEDS: STOP CLINOLIPID SCH (22:00)
[2022-09-23] MEDS: LORazepam 0.5 MG TAB PO PRN (22:04)
[2022-09-24] MEDS: HYDROmorphone INJ 0.5 MG/0.5 ML SYR IV PRN ×2 (05:18→09:07)
[2022-09-24 06:33] LABS: Anion Gap 5 (3-11); Blood Urea Nitrogen 21 mg/dl (6-23); Carbon Dioxide 29 mmol/L (21-32); Chloride 106 mmol/L (98-107); Creatinine Clr Calc Pharmacy 157.3 ml/min; Est GFR (African American) > 150.0 ml/min; Est GFR (Non-African American) 130.2 ml/min; Glucose 103 mg/dl (70-99(Fasting)); Magnesium 1.9 mg/dl (1.7-2.4); Phosphorus 3.7 mg/dl (2.5-4.9); Potassium 3.9 mmol/L (3.5-5.1); Sodium 140 mmol/L (136-145)
--- NOTE | 2022-09-24 09:55 | Surgery Progress Note ---
Date of Service September 24, 2022 Assessment & Plan (1) SBO (small bowel obstruction): Plan: This is the best he has looked since surgery. He continues to slowly improve. I want to continue to keep the NG tube and him on clear liquids over the weekend. We will repeat KUB on Tuesday. If he does well and the x-ray looks satisfactory we will pull his NG tube and start full liquids on Tuesday. Dr. Valerio covering for the weekend if any questions or concerns. Admission and Anticipated Discharge Date Admission Date: August 24, 2022 Subjective Patient seen. He continues to do well. He increase his oral intake yesterday without detriment. He has had no nausea. He has had no abdominal pain. He has had 3 or 4 more bowel movements overnight. Physical Exam Physical Exam: Alert. No acute distress Abdomen is soft nontender. It is nondistended. His incision looks great Results & Data Vital Signs (Past 12 Hours) Vital Signs Temp Pulse Resp BP Pulse Ox O2 Del Method 09/24/22 07:22 36.6 C 71 16 96/62 L 96 Room Air PG Care Time/CCT Total # of Minutes Spent Total Time Spent with Patient: Total time spent is greater than 50% in coordination of care (as documented) at patient's floor/unit and/or counseling patient: Coding Level of Care Code 59890 Post Operative Follow-Up Diagnoses SBO (small bowel obstruction) K56.609
[2022-09-24] MEDS: PANTOprazole 40 MG in SYRINGE 0 ML IV SCH (11:53)
[2022-09-24] MEDS: traMADol HCL 50 MG TABLET PO PRN ×3 (14:17→23:27)
[2022-09-24] MEDS ORDERED: [UNRECOGNIZED DRUG - OTHER] IV SCH (16:00)
[2022-09-24] MEDS ORDERED: CENTRAL TPN IV SCH (16:00)
[2022-09-24] MEDS: ACETAMINOPHEN 1,000 MG/100 ML VIAL IV PRN (20:29)
[2022-09-24] MEDS: LORazepam 0.5 MG TAB PO PRN (22:41)
--- NOTE | 2022-09-25 05:39 | Surgery Progress Note ---
Date of Service September 25, 2022 Assessment & Plan (1) H/O abdominal surgery: Plan: Status post abdominal wall reconstruction on 08/24/2022 (postop day #32): Continue analgesics as needed (patient currently has oral acetaminophen and tramadol ordered) Continue TPN as patient is currently only on clear liquids Keep NG tube in place through the weekend. I discussed with the patient that he is not to place the NG tube to suction by himself so accurate outputs can be obtained in the event that it does need to be placed to suction. Continue ambulation as able Plan is for repeat KUB on 09/27/2022 at which time a determination will be made if patient's NG tube is to remain in place Admission and Anticipated Discharge Date Admission Date: August 24, 2022 Supervising Physician Co-Signing Physician Notes pnt S&E, agree with above. ng to gravity, minimal pain. exam benign. continue ng, current management. Subjective Patient is resting comfortably in bed. He he denies any nausea or vomiting. He does report some intermittent abdominal pain. He notes that he has been having multiple bowel movements each evening. He does report tolerating clear liquids without worsening abdominal pain I did discuss with the nurse attending to the patient and she notes that patient reports he has been intermittently hooking up the NG tube to suction by himself without their knowledge. Therefore the nurse notes that the amount of NG tube drainage is inaccurate. (She is subsequently removed suction apparatus from the room and is instructed the patient that if he needs his NG tube placed to suction it should be done by nursing staff so accurate output can be recorded). No other concerns noted by nursing staff Physical Exam Gastrointestinal (Abdomen): Abdomen is soft and nondistended. It is nonrigid. Patient's surgical incision is clean, dry, intact. There is minimal pain noted with palpation of patient's abdomen. NG tube is in place (please see subjective section concerning output) Results & Data Vital Signs (Past 12 Hours) Vital Signs Temp Pulse Resp BP Pulse Ox O2 Del Method 09/24/22 22:15 36.7 C 90 16 101/65 98 Room Air PG Care Time/CCT Total # of Minutes Spent Total Time Spent with Patient: Total time spent is greater than 50% in coordination of care (as documented) at patient's floor/unit and/or counseling patient: Coding Level of Care Code 53583 Post Operative Follow-Up Diagnoses H/O abdominal surgery Z98.890
[2022-09-25] MEDS: traMADol HCL 50 MG TABLET PO PRN ×2 (06:34→21:09)
[2022-09-25] MEDS: ACETAMINOPHEN 1,000 MG/100 ML VIAL IV PRN ×2 (07:47→18:18)
[2022-09-25] MEDS: PANTOprazole 40 MG in SYRINGE 0 ML IV SCH (11:34)
[2022-09-25] MEDS ORDERED: CENTRAL TPN IV SCH (16:00)
[2022-09-25] MEDS ORDERED: [UNRECOGNIZED DRUG - OTHER] IV SCH (16:00)
[2022-09-25] MEDS: LORazepam 0.5 MG TAB PO PRN (21:09)
--- NOTE | 2022-09-26 05:18 | Surgery Progress Note ---
Date of Service September 26, 2022 Assessment & Plan (1) H/O abdominal surgery: Plan: Status post abdominal wall reconstruction on 08/24/2022 (postop day #33): Continue analgesics as needed (patient currently has oral acetaminophen and tramadol ordered) Continue TPN as patient is currently only on clear liquids. This should continue until diet is able to be advanced and is noted to be tolerated Keep NG tube in place as previously noted. Continue ambulation as able Plan is for repeat KUB on 09/27/2022 at which time a determination will be made if patient's NG tube is to remain in place Check a.m. labs when available Admission and Anticipated Discharge Date Admission Date: August 24, 2022 Supervising Physician Co-Signing Physician Notes Patient seen and examined, agree with above. Multiple loose bowel movements over the past 24 hours. Incision pristine. Abdominal exam benign. Continue clamped NG, Dr. Singh to reevaluate tomorrow for possible removal. Subjective Patient is resting comfortably in bed. Over the past 24 hours he denies any nausea or vomiting and is tolerating clear liquids. He denies abdominal pain. He notes he is having some loose bowel movements. He notes that his NG tube did not require placement to suction over the past 24 hours. Physical Exam Gastrointestinal (Abdomen): Incision is clean, dry, intact. Abdomen is soft and nondistended with minimal to no pain with palpation. Results & Data Vital Signs (Past 12 Hours) Vital Signs Temp Pulse Resp BP Pulse Ox O2 Del Method 09/25/22 21:10 Room Air 09/25/22 21:28 36.6 C 63 16 102/69 98 Room Air PG Care Time/CCT Total # of Minutes Spent Total Time Spent with Patient: Total time spent is greater than 50% in coordination of care (as documented) at patient's floor/unit and/or counseling patient: Coding Level of Care Code 52536 Post Operative Follow-Up Diagnoses H/O abdominal surgery Z98.890
[2022-09-26 10:07] LABS: Anion Gap 4 (3-11); Calcium 8.9 mg/dl (8.6-10.3); Carbon Dioxide 27 mmol/L (21-32); Chloride 108 mmol/L (98-107); Magnesium 1.9 mg/dl (1.7-2.4); Potassium 4.1 mmol/L (3.5-5.1); Sodium 139 mmol/L (136-145)
[2022-09-26 10:12] LABS: BUN Creatinine Ratio 28.8 (10-20); Blood Urea Nitrogen 19 mg/dl (6-23); Creatinine Clr Calc Pharmacy 166.8 ml/min; Est GFR (African American) > 150.0 ml/min; Est GFR (Non-African American) 133.4 ml/min; Glucose 101 mg/dl (70-99(Fasting)); Phosphorus 2.9 mg/dl (2.5-4.9)
[2022-09-26] MEDS: PANTOprazole 40 MG in SYRINGE 0 ML IV SCH (11:27)
[2022-09-26] MEDS: ACETAMINOPHEN 1,000 MG/100 ML VIAL IV PRN (11:33)
[2022-09-26] MEDS ORDERED: [UNRECOGNIZED DRUG - OTHER] IV SCH (16:00)
[2022-09-26] MEDS ORDERED: CENTRAL TPN IV SCH (16:00)
[2022-09-26] MEDS: LORazepam 0.5 MG TAB PO PRN (20:22)
[2022-09-26] MEDS: traMADol HCL 50 MG TABLET PO PRN (20:23)
[2022-09-27 06:25] LABS: Anion Gap 6 (3-11); BUN Creatinine Ratio 26.8 (10-20); Blood Urea Nitrogen 19 mg/dl (6-23); Calcium 8.9 mg/dl (8.6-10.3); Carbon Dioxide 26 mmol/L (21-32); Chloride 107 mmol/L (98-107); Creatinine Clr Calc Pharmacy 155.1 ml/min; Est GFR (African American) > 150.0 ml/min; Est GFR (Non-African American) 129.5 ml/min; Glucose 104 mg/dl (70-99(Fasting)); Phosphorus 3.6 mg/dl (2.5-4.9); Potassium 3.9 mmol/L (3.5-5.1); Sodium 139 mmol/L (136-145)
--- NOTE | 2022-09-27 08:24 | Surgery Progress Note ---
Date of Service September 27, 2022 Assessment & Plan (1) SBO (small bowel obstruction): Plan: Clinically improving. We will recheck KUB today. If im happy with that I will pull his NG tube and advance him to full liquids. I am nervous to let him go home until he proves he is able to eat enough calories to sustain himself without getting pain or nausea. Admission and Anticipated Discharge Date Admission Date: August 24, 2022 Subjective Patient seen. He believes he is doing very well and wants to go home. He is eating and had many bowel movements over the weekend. He denies pain or any nausea Physical Exam Physical Exam: Alert. No acute distress Abdomen soft nontender nondistended Results & Data Vital Signs (Past 12 Hours) Vital Signs Temp Pulse Pulse Resp BP Pulse Ox O2 Del Method 09/27/22 08:09 36.4 C L 68 20 115/80 100 Room Air 09/27/22 07:14 36.6 C 74 16 102/67 100 Room Air PG Care Time/CCT Total # of Minutes Spent Total Time Spent with Patient: Total time spent is greater than 50% in coordination of care (as documented) at patient's floor/unit and/or counseling patient: Coding Level of Care Code 27123 Post Operative Follow-Up Diagnoses SBO (small bowel obstruction) K56.609
--- NOTE | 2022-09-27 09:00 | XRay Report ---
KUB CLINICAL HISTORY: Small bowel obstruction. FINDINGS: 2 AP supine abdominal radiographs are compared to study dated 09/20/2022 and correlated with abdominal CT dated 09/07/2022. An enteric tube projects below the diaphragm over the gastric fundus. S uture material projects over the right midabdomen and the left lower quadrant. There are persistent d istended and gas-filled loops of small bowel indicating persistent obstruction. No evidence of intrap eritoneal free air is identified on these supine images. There are no abnormal abdominal calcificatio ns. The bony structures appear intact. Postsurgical change is noted in the left proximal femur. IMPRESSION: 1. An enteric tube is unchanged in position. 2. Persistent distended and gas-filled loops of small bowel are similar to previous and indicate at l east partial small bowel obstruction. Electronically signed by: Mars Velazquez M.D. 09/27/2022 8:59 AM
[2022-09-27] MEDS: PANTOprazole 40 MG in SYRINGE 0 ML IV SCH (11:48)
[2022-09-27] MEDS ORDERED: CENTRAL TPN IV SCH (16:00)
[2022-09-27] MEDS ORDERED: CLINOLIPID 20% IV FAT EMULSION 250 ML IV SCH (16:00)
[2022-09-27] MEDS ORDERED: [UNRECOGNIZED DRUG - OTHER] IV SCH (16:00)
[2022-09-27] MEDS: traMADol HCL 50 MG TABLET PO PRN ×2 (16:03→20:56)
[2022-09-27] MEDS ORDERED: KETOROLAC 30 MG/ML VIAL IV ONE (17:45)
[2022-09-27] MEDS: LORazepam 0.5 MG TAB PO PRN (20:56)
[2022-09-27] MEDS: STOP CLINOLIPID SCH (22:37)
[2022-09-28 06:40] LABS: BUN Creatinine Ratio 27.8 (10-20); Calcium 8.7 mg/dl (8.6-10.3); Creatinine Clr Calc Pharmacy 139.4 ml/min; Est GFR (African American) 143.6 ml/min; Est GFR (Non-African American) 123.9 ml/min; Magnesium 1.9 mg/dl (1.7-2.4); Phosphorus 4.3 mg/dl (2.5-4.9); Potassium 3.9 mmol/L (3.5-5.1)
--- NOTE | 2022-09-28 07:33 | Surgery Progress Note ---
Date of Service September 28, 2022 Assessment & Plan (1) H/O abdominal surgery: Plan: Few retained spitting sutures removed from incision. Patient can apply bacitracin/Vaseline daily. Follow-up in office once discharged for additional scar care. Diet/discharge planning per Gen Surg. (2) SBO (small bowel obstruction): Admission and Anticipated Discharge Date Admission Date: August 24, 2022 Subjective Armand seen today resting in bed. He was advanced to full liquids yesterday. States he did have some abdominal pain and nausea with the advancement in diet. Continues to have multiple BM. Physical Exam Physical Exam: abdominal incision well healed. few spitting sutures- removed. Results & Data Vital Signs (Past 12 Hours) Vital Signs Temp Pulse Resp BP Pulse Ox O2 Del Method 09/27/22 20:55 Room Air 09/27/22 20:50 36.6 C 75 16 102/69 97 Room Air PG Care Time/CCT Total # of Minutes Spent Total Time Spent with Patient: Total time spent is greater than 50% in coordination of care (as documented) at patient's floor/unit and/or counseling patient: Coding Level of Care Code 59934 Post Operative Follow-Up Diagnoses H/O abdominal surgery Z98.890 SBO (small bowel obstruction) K56.609
[2022-09-28] MEDS: traMADol HCL 50 MG TABLET PO PRN ×4 (09:06→22:57)
--- NOTE | 2022-09-28 10:19 | Surgery Progress Note ---
Date of Service September 28, 2022 Assessment & Plan (1) Partial small bowel obstruction: Plan: Continues to be a difficult scenario. He did tolerate full liquids all day yesterday but did have some pain last night. Does not appear to be a clear indication for urgent surgery in what would be a very hostile abdomen however he has not been progressing on his diet very well. He continues to have multiple bowel movements per day and no nausea or vomiting. We will again try another 24 hours of full liquid diet. If we could get through 24 hours of diet with bowel movements and no pain or nausea we could likely try and discharge him soon. Admission and Anticipated Discharge Date Admission Date: August 24, 2022 Subjective Patient seen. Feeling great currently. Had some abdominal pain last evening. This resolved with some Toradol. We did hook his NG tube back to suction and got about 200 to 250 cc of relatively clear bilious output. He had a bowel movement through the night as well as a large 1 this morning. Physical Exam Physical Exam: Alert. No acute distress Abdomen is soft nontender with minimal distention Results & Data Vital Signs (Past 12 Hours) Vital Signs Temp Pulse Resp BP Pulse Ox O2 Del Method 09/28/22 07:29 36.6 C 71 16 94/61 L 99 Room Air PG Care Time/CCT Total # of Minutes Spent Total Time Spent with Patient: Total time spent is greater than 50% in coordination of care (as documented) at patient's floor/unit and/or counseling patient: Coding Level of Care Code 76006 Post Operative Follow-Up Diagnoses Partial small bowel obstruction K56.600
[2022-09-28] MEDS: PANTOprazole 40 MG in SYRINGE 0 ML IV SCH (11:57)
[2022-09-28] MEDS ORDERED: CENTRAL TPN IV SCH (16:00)
[2022-09-28] MEDS ORDERED: [UNRECOGNIZED DRUG - OTHER] IV SCH (16:00)
[2022-09-28] MEDS: LORazepam 0.5 MG TAB PO PRN (20:28)
[2022-09-29 06:46] LABS: Hematocrit (blood only) 37.7 % (42.0-52.0); Hemoglobin 12.1 g/dl (14.0-18.0); Mean Corpuscular Hemoglobin 28.6 pg (25.0-34.0); Mean Corpuscular Hgb Conc 32.1 g/dL (32.0-36.0); Mean Corpuscular Volume 89.1 fL (80.0-100.0); Mean Platelet Volume 11.7 fL (9.4-12.4); Platelet Count 189 K/uL (130-400); RDW Coefficient of Variation 14.1 % (11.5-14.5); RDW Standard Deviation 45.4 fL (36.4-46.3); Red Blood Count 4.23 M/uL (4.70-6.10); White Blood Count 5.29 K/ul (4.8-10.8)
[2022-09-29 07:06] LABS: BUN Creatinine Ratio 28.9 (10-20); Bilirubin,Total 0.5 mg/dl (0.2-1.0); Calcium 8.9 mg/dl (8.6-10.3); Creatinine Clr Calc Pharmacy 144.9 ml/min; Est GFR (African American) 145.9 ml/min; Est GFR (Non-African American) 125.9 ml/min; Magnesium 1.9 mg/dl (1.7-2.4); Phosphorus 3.8 mg/dl (2.5-4.9); Potassium 3.9 mmol/L (3.5-5.1)
--- NOTE | 2022-09-29 08:33 | Surgery Progress Note ---
Date of Service September 29, 2022 Assessment & Plan (1) H/O abdominal surgery: Plan: He has had his NG tube clamped for several days and has had bowel movements every single day. He seems to be tolerating at least a full liquid diet. We had a long discussion today about the diet I would like him on which should be mostly liquids. He can have some soft things like peaches pears soup broth yogurt ice cream etc. I would like him to have 6 smaller snack like meals rather than regular meals. I like to see him in 1 week for follow-up. He is to call me with any increasing abdominal pain nausea vomiting etc. Admission and Anticipated Discharge Date Admission Date: August 24, 2022 Subjective Patient seen. States he feels very well. He had some cramping last night but felt that was minor. He ate several ice creams, rice, tomato soup, Gatorade, several coffees etc. yesterday without any nausea or vomiting. He is also had 2 more bowel movements the last one at 530 this morning. He feels quite confident that he will be okay at home and would like to be discharged. Physical Exam Physical Exam: Alert and oriented no acute distress Abdomen is soft nontender nondistended the incision is well-healed Results & Data Vital Signs (Past 12 Hours) Vital Signs Temp Pulse Resp BP Pulse Ox O2 Del Method 09/29/22 07:16 36.6 C 87 16 103/65 100 Room Air 09/28/22 20:30 Room Air PG Care Time/CCT Total # of Minutes Spent Total Time Spent with Patient: Total time spent is greater than 50% in coordination of care (as documented) at patient's floor/unit and/or counseling patient: Coding Level of Care Code 88868 Post Operative Follow-Up Diagnoses H/O abdominal surgery Z98.890
[2022-09-29 09:37] LABS: Prealbumin 27.1 mg/dl (20-40)
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
== END 2022-09-29 10:36 | disposition home or self-care (01) | DRG 330 ==
LOC: ASU 05:22 → 3E 12:06
DX: K56.600 Partial intestinal obstruction, unspecified as to cause; T81.41XA Infection following a procedure, superficial incisional surgical site, initial encounter; F17.290 Nicotine dependence, other tobacco product, uncomplicated; Z88.0 Allergy status to penicillin; V89.2XXS Person injured in unspecified motor-vehicle accident, traffic, sequela; R33.8 Other retention of urine; L90.5 Scar conditions and fibrosis of skin; U07.0 Vaping-related disorder; Y92.239 Unspecified place in hospital as the place of occurrence of the external cause; Z90.49 Acquired absence of other specified parts of digestive tract; K66.0 Peritoneal adhesions (postprocedural) (postinfection); Y83.8 Other surgical procedures as the cause of abnormal reaction of the patient, or of later complication, without mention of misadventure at the time of the procedure; K91.89 Other postprocedural complications and disorders of digestive system; Y92.89 Other specified places as the place of occurrence of the external cause; K43.9 Ventral hernia without obstruction or gangrene

== ENCOUNTER 2022-09-30 11:35 | Inpatient (IN) ==
--- NOTE | 2022-09-30 11:53 | ED Triage Note ---
Date of Service September 30, 2022 History of Present Illness This patient was briefly evaluated while in triage. An abbreviated physical exam was performed. This patient is a 27-year-old Male who presents to the ED for evaluation of left lower abdominal pain. The patient had abdominal surgery on 08/24 for a scar revision after having a colon resection in 2019. The patient was just discharged from our facility yesterday. The patient rates his discomfort a 9 out of 10. Patient denies any fevers. Physical Exam CONSTITUTIONAL: Healthy and well nourished. GASTROINTESTINAL: Bowel sounds present in all quadrants. MUSCULOSKELETAL: Full range of motion of all joints without discomfort. INTEGUMENTARY: No rash or other significant dermatologic conditions noted. HEMATOLOGIC: No ecchymosis or petechiae. PSYCHIATRIC: Positive affect. NEUROLOGIC: Cranial nerves II-XII grossly intact. No focal neurologic deficits noted. Initial orders for labs and / or imaging were placed and patient was placed in the waiting area until a bed is available. Please see further documentation for the full ED course.
[2022-09-30 12:50] LABS: Basophils # (auto) 0.07 K/uL (0-0.2); Basophils % (auto) 0.8 %; Eosinophils # (auto) 0.13 K/uL (0-0.50); Eosinophils % (auto) 1.5 %; Hematocrit (blood only) 46.6 % (42.0-52.0); Hemoglobin 15.7 g/dl (14.0-18.0); Immature Granulocytes # (auto) 0.02 K/uL (0.01-0.20); Immature Granulocytes % (auto) 0.2 %; Lymphocytes # (auto) 1.97 K/uL (1.2-3.4); Lymphocytes % (auto) 22.1 %; Mean Corpuscular Hemoglobin 28.5 pg (25.0-34.0); Mean Corpuscular Hgb Conc 33.7 g/dL (32.0-36.0); Mean Corpuscular Volume 84.7 fL (80.0-100.0); Mean Platelet Volume 12.1 fL (9.4-12.4); Monocytes # (auto) 0.59 K/uL (0.11-0.59); Monocytes % (auto) 6.6 %; Neutrophils # (auto) 6.13 K/uL (1.40-6.50); Neutrophils % (auto) 68.8 %; Platelet Count 312 K/uL (130-400); RDW Coefficient of Variation 14.4 % (11.5-14.5); RDW Standard Deviation 44.2 fL (36.4-46.3); White Blood Count 8.91 K/ul (4.8-10.8)
[2022-09-30 13:25] LABS: Appearance Urine Clear (Clear); Bacteria Urine Automated Negative (Negative); Blood Urine Negative (Negative); Color Urine Dark Yellow; Glucose Urine UA Negative (Negative); Ketones Urine 1+ (Negative); Leukocyte Esterase Urine Negative (Negative); Nitrite Urine Negative (Negative); Protein Urine 1+ (Negative); RBC Urine Automated 0-4 /hpf (0-4); Specific Gravity Urine 1.038 (1.000-1.030); Urobilinogen Urine Negative (Negative); pH Urine 5.5 (4.5-7.5)
[2022-09-30 13:29] LABS: Bilirubin Urine 1+ (Negative)
[2022-09-30] MEDS ORDERED: SODIUM CHLORIDE 0.9% 1000ML 1,000 ML IV ONE (14:25)
[2022-09-30] MEDS ORDERED: MoRPHine SULFATE 10 MG/ML CARP/VIAL IV STA (14:25)
[2022-09-30] MEDS ORDERED: ONDANSETRON INJ 2 MG/ML 2 ML VIAL IV STA (14:25)
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
[2022-09-30 15:28] LABS: Albumin Globulin Ratio 1.1 (0.9-2); Albumin Level 4.9 gm/dl (3.4-5.0); BUN Creatinine Ratio 23.3 (10-20); Bilirubin,Total 1.2 mg/dl (0.2-1.0); Calcium 10.5 mg/dl (8.6-10.3); Creatinine Clr Calc Pharmacy 112.2 ml/min; Est GFR (African American) 136.1 ml/min; Est GFR (Non-African American) 117.5 ml/min; Globulin 4.4 gm/dl (2.5-4.0); Potassium 3.8 mmol/L (3.5-5.1); Total Protein 9.3 gm/dl (6.0-8.3)
[2022-09-30] MEDS ORDERED: OPTIRAY 350 100ml IV ONE (15:57)
--- NOTE | 2022-09-30 16:47 | CT Scan Report ---
ABDOMEN AND PELVIS CT WITH IV CONTRAST CT DOSE: 412.85 mGycm HISTORY: Acute left lower quadrant abdominal pain LLQ abd pain s/p colon resection TECHNIQUE: Multiaxial CT images of the abdomen and pelvis were performed following the IV administrat ion of 83 cc of Optiray, A dose lowering technique was utilized adhering to the principles of ALARA. COMPARISON STUDY: KUB 09/27/2022, CT abdomen and pelvis 09/07/2022 FINDINGS: Clear lung bases. No pneumatosis or pneumoperitoneum identified. The spleen, pancreas and a drenal glands are unremarkable. Mild distention of the gallbladder. The liver is unremarkable. Patent portal vein. Unremarkable kidneys. No hydronephrosis. Decompressed urinary bladder with mild wall th ickening and perivesicular stranding. Prostate is upper limits of normal in size. Unremarkable aorta. Duplication of the infrahepatic IVC. No lymphadenopathy. Postoperative changes of subtotal colectomy with ileocolic anastomosis redemonstrated. There is progr essively worsened small bowel dilation with air-fluid levels compared to the prior study. Small bowel loops now measure up to 5.8 cm transversely. Several loops of small bowel demonstrate circumferentia l wall thickening. Transitioned decompressed loops of small bowel are noted within the lower abdomen and pelvis. Loops of bowel noted within both the left and right lower quadrant. Mild interloop edema. Unremarkable soft tissues. No acute fracture. ORIF changes of the left proximal femur redemonstrated . IMPRESSION: 1. High-grade small bowel obstruction with progressively worsened small bowel dilation and wall thick ening compared to the 09/07/2022 exam. 2. Prior subtotal colectomy with ileocolic anastomosis. No pneumatosis or pneumoperitoneum. 3. Mild interloop edema has improved from the prior study. 4. Additional findings as above. ACT 112: Negative or not required by law. The above report was generated using voice recognition software. It may contain grammatical, syntax o r spelling errors. Electronically signed by: Juanito Crouch M.D. 09/30/2022 4:45 PM
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
[2022-09-30] MEDS ORDERED: ACETAMINOPHEN 1,000 MG/100 ML VIAL IV PRN (19:56)
[2022-09-30] MEDS: SODIUM CHLORIDE 0.9% 1000ML 1,000 ML IV SCH (20:18)
[2022-09-30] MEDS: HYDROmorphone INJ 0.5 MG/0.5 ML SYR IV PRN (20:18)
[2022-09-30] MEDS ORDERED: hydrOXYzine HCl 25 MG TAB PO STA (21:54)
[2022-09-30] MEDS ORDERED: LORazepam 2 MG/1 ML VIAL IV STA (22:00)
[2022-10-01] MEDS: HYDROmorphone INJ 0.5 MG/0.5 ML SYR IV PRN ×8 (02:27→23:57)
[2022-10-01] MEDS ORDERED: CLINDAMYCIN/D5W 900 MG/50 ML BAG IV SCH (06:00)
[2022-10-01] MEDS: SODIUM CHLORIDE 0.9% 1000ML 1,000 ML IV SCH (06:10)
[2022-10-01] MEDS ORDERED: MIDAZOLAM HCL 1 MG/ML 2ML VIAL ONE (07:21)
[2022-10-01] MEDS ORDERED: fentaNYL citrate PF 100 MCG/2 ML VIAL ONE ×2 (07:21→08:50)
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
[2022-10-01] MEDS ORDERED: CLINDAMYCIN 900 MG/D5W 50 ML BAG IV ONE (08:04)
[2022-10-01] MEDS ORDERED: KETOROLAC 30 MG/ML VIAL IV PRN (08:06)
[2022-10-01] MEDS ORDERED: ONDANSETRON INJ 2 MG/ML 2 ML VIAL IV PRN (08:06)
[2022-10-01] MEDS ORDERED: PROMETHAZINE HCL 6.25 MG in SODIUM CHLORIDE 0.9% 50 ML IV PRN (08:06)
[2022-10-01] MEDS ORDERED: ATROPINE SULFATE 0.1 MG/ML 10ML SYR IV PRN (08:06)
--- NOTE | 2022-10-01 08:11 | History & Physical Bridge Note ---
Date of Service October 01, 2022 History & Physical Bridge Note I have examined the patient, reviewed the History & Physical and in the interval since the performance of the History & Physical I have noted the following changes of clinical significance: no changes noted pt seen yesterday and today. Exam unchanged. CT scan showing worsening small bowel obstruction. Discussed options as well as risks which include bleeding, infection, injury to bowel or other organs, DVT, PE, CA, CVA etc. Following our discussion answered all of his questions. We will proceed today with laparoscopy possible laparotomy possible bowel resection surgery as needed. Patient agreeable
[2022-10-01] MEDS ORDERED: LIDOCAINE 2% MPF LOCAL 5 ML VIAL ONE (08:17)
[2022-10-01] MEDS ORDERED: DEXAMETHASONE SOD INJ 4 MG/ML VIAL ONE (08:17)
[2022-10-01] MEDS ORDERED: ONDANSETRON INJ 2 MG/ML 2 ML VIAL ONE (08:17)
[2022-10-01] MEDS ORDERED: PROPOFOL IV EMULSION 10 MG/ML 20 ML VIAL IV ONE (08:17)
[2022-10-01] MEDS ORDERED: ROCURONIUM BROMIDE 10 MG/ML 5 ML VIAL IV ONE ×2 (08:17→09:17)
[2022-10-01] MEDS ORDERED: BUPIVACAINE/EPINEPHRINE 0.5% MPF 1:200,000 30 ML VIAL ONE (08:24)
[2022-10-01] MEDS ORDERED: NEOSTIGMINE METHYLSULFATE 1 MG/ML 10ML VIAL ONE (09:32)
[2022-10-01] MEDS ORDERED: GLYCOPYRROLATE 0.2 MG/ML VIAL ONE (09:32)
--- NOTE | 2022-10-01 10:18 | Operative Report ---
PG Post Operative Report Pre & Post Diagnosis Operation Date: 10/01/22 07:00 Pre-Op Diagnosis: Small bowel obstruction Post-Op Diagnosis: Small bowel obstruction;frozen abdomen I identified the patient and participated in the time-out.: Yes Procedure Operation Date: 10/01/22 07:00 Actual Procedures p Exploratory Laparotomy( aborted procedure), Intraoperative Esophagogastroduodenoscopy(Not Applicable) - Jean Carlos Singh DO Surgeon Jean Carlos Singh DO Rack Loader ronak Patel Estimated Blood Loss 5 Findings Consistent with Post-Op Diagnosis Specimens none Description of Procedure After informed consent was obtained the patient was brought to the operating room and placed in supine position. After successful intubation a nasogastric tube as well as Fajardo catheter were placed. The abdomen sterilely prepped and draped in usual fashion. I began with a small incision left upper quadrant. This was carried down through the soft tissue using cautery. The anterior fascia was opened and two #0 Vicryl stay sutures were placed. Peritoneum was elevated with hemostats and incised with Metzenbaum scissor. We were able to visualize bowel which was tightly adhesed to the undersurface of the abdomen. It was clear that laparoscopy was going to be impossible. At this point I opened the prior midline incision with a 10 blade scalpel. We carried this down through soft tissue again using cautery. I attempted to enter the abdomen via the superiormost pole of the incision as previously this is where the least a mount of adhesions had occurred. We tried 2 separate areas by incising the anterior fascia and elevating peritoneum and incising it with Metzenbaum scissor. 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 There was no plane whatsoever and no way to even enter the peritoneal cavity without severe damage and risk to bowel. After multiple attempts to enter the abdomen I decided to abort the procedure to prevent making the situation worse. We closed the fascial opening using #1 Ethibond in simple erupted fashion irrigated the wound and closed it with 3-0 Vicryl for deep layers and 4 Monocryl for skin. Silver dressing gauze and tape were used as a dressing I then performed an intraoperative gastroscopy to attempt to place a venting gastrostomy tube. A bite-block was placed and the gastroscope was lubricated. I was able to easily advance into the esophagus and into the stomach. I was able to get down to the pylorus. The nasogastric tube was in fact in the stomach. Again we turned off all the lights but were unable to transilluminate through the abdominal wall preventing us from being able to percutaneously place a gastrostomy tube. The stomach was decompressed and scope withdrawn. The stomach was in surprisingly good condition with no evidence of gastritis or ulcerations. The patient was awakened extubated and transferred to recovery in stable condition. My physician nurse's assistant was present the entire case was instrumental in assisting with exposure wound closure and dressing placement. I attest to the content of the Intraoperative Record and any orders documented therein. Any exceptions are noted below.
[2022-10-01] MEDS: HYDROmorphone INJ 1 MG/ML SYRINGE IV PRN ×4 (10:32→10:47)
[2022-10-01] MEDS ORDERED: MoRPHine SULFATE 4 MG/ML 1 ML CARP\\VIAL ONE ×2 (10:53→11:06)
[2022-10-01] MEDS: MoRPHine SULFATE 10 MG/ML CARP/VIAL IV PRN ×4 (10:54→11:10)
--- NOTE | 2022-10-01 11:21 | Anesthesiology Progress Note ---
Date of Service October 01, 2022 Anesthesia Post Procedure Vital Signs Vital Signs: Temp Pulse Pulse Pulse Pulse Resp BP 10/01/22 11:10 95 H 17 10/01/22 11:00 90 16 10/01/22 10:50 87 15 10/01/22 10:40 87 12 10/01/22 10:30 83 18 10/01/22 10:24 36.1 C L 89 20 10/01/22 07:45 36.7 C 85 16 10/01/22 07:40 36.7 C 87 16 09/30/22 22:15 36.5 C 84 18 09/30/22 19:45 36.6 C 87 18 09/30/22 19:31 68 20 110/64 09/30/22 17:20 90 09/30/22 17:11 93 H 18 09/30/22 14:36 85 18 09/30/22 13:03 73 09/30/22 12:54 91 H 18 09/30/22 11:50 36.6 C 99 H 18 120/77 BP Pulse Ox O2 Del Method O2 Flow Rate 10/01/22 11:10 130/79 100 Oxymask 5 10/01/22 11:00 133/80 100 Oxymask 5 10/01/22 10:50 137/81 100 Oxymask 5 10/01/22 10:40 135/82 100 Oxymask 5 10/01/22 10:30 141/95 H 100 Oxymask 9 10/01/22 10:24 133/92 100 Oxymask 9 10/01/22 07:45 118/66 99 Room Air 10/01/22 07:40 97/60 L 99 Room Air 09/30/22 22:15 112/70 99 Room Air 09/30/22 19:45 118/76 99 Room Air 09/30/22 19:31 96 Room Air 09/30/22 17:20 09/30/22 17:11 115/71 98 Room Air 09/30/22 14:36 123/88 99 Room Air 09/30/22 13:03 09/30/22 12:54 130/89 100 Room Air 09/30/22 11:50 94 Room Air Pain Intensity Left Upper Abdomen: Pain Intensity: 8 Medial Abdomen: Pain Intensity: 6 Transfer of Care Handoff Completed per policy Notes Mental Status: alert / awake / arousable Patient Amnestic to Procedure: Yes Nausea / Vomiting: adequately controlled Pain: adequately controlled Airway Patency, RR, SpO2: stable & adequate BP & HR: stable & adequate Hydration State: stable & adequate Anesthetic Complications: no major complications apparent
[2022-10-01] MEDS ORDERED: LACTATED RINGER'S 1,000 ML IV SCH (11:39)
[2022-10-01] MEDS ORDERED: TPN/PPN CONSULT PHARMACY PRN (11:49)
[2022-10-01 12:17] LABS: Basophils # (auto) 0.03 K/uL (0-0.2); Basophils % (auto) 0.6 %; Eosinophils # (auto) 0.04 K/uL (0-0.50); Eosinophils % (auto) 0.8 %; Hematocrit (blood only) 39.2 % (42.0-52.0); Hemoglobin 12.4 g/dl (14.0-18.0); Immature Granulocytes # (auto) 0.02 K/uL (0.01-0.20); Immature Granulocytes % (auto) 0.4 %; Lymphocytes # (auto) 0.87 K/uL (1.2-3.4); Mean Corpuscular Hemoglobin 28.8 pg (25.0-34.0); Mean Corpuscular Hgb Conc 31.6 g/dL (32.0-36.0); Mean Corpuscular Volume 91.2 fL (80.0-100.0); Mean Platelet Volume 11.5 fL (9.4-12.4); Monocytes # (auto) 0.07 K/uL (0.11-0.59); Monocytes % (auto) 1.4 %; Neutrophils % (auto) 79.8 %; Platelet Count 195 K/uL (130-400); RDW Coefficient of Variation 14.5 % (11.5-14.5); RDW Standard Deviation 48.6 fL (36.4-46.3); White Blood Count 5.13 K/ul (4.8-10.8)
[2022-10-01] MEDS: ACETAMINOPHEN 1,000 MG/100 ML VIAL IV SCH ×2 (12:33→19:35)
[2022-10-01 12:43] LABS: BUN Creatinine Ratio 20.7 (10-20); Calcium 8.2 mg/dl (8.6-10.3); Creatinine Clr Calc Pharmacy 123.2 ml/min; Est GFR (African American) 141.5 ml/min; Phosphorus 2.8 mg/dl (2.5-4.9); Potassium 4.2 mmol/L (3.5-5.1)
[2022-10-01 12:44] LABS: Magnesium 1.6 mg/dl (1.7-2.4)
[2022-10-01] MEDS ORDERED: TPN/PPN CONSULT PHARMACY STA (13:39)
[2022-10-01] MEDS ORDERED: MAGNESIUM SULFATE / D5W 1 GM/100 ML BAG IV ONE (14:15)
--- NOTE | 2022-10-01 14:25 | Pharmacy Report ---
Pharmacy PN Initial Consult - Date of Service October 01, 2022 - Scope Pharmacy has been consulted to manage parenteral nutrition orders and order appropriate labs. As part of the Nutrition Support Team guidelines, pharmacy will work in conjunction with dietary when determining the patients caloric needs. - Subjective The patient is a 27 year old M admitted on 09/30/22 17:11 for SBO. - Objective Height: 5 ft 6 in Weight: 67.727 kg Diet: NPO Intake & Output (Last 24Hrs): Intake & Output 09/29/22 09/30/22 10/01/22 10/02/22 06:59 06:59 06:59 06:59 Intake Total 1985.667 1850 / 1850 Output Total Balance 1845 / 1845 Weight 67.727 kg 67.727 kg Laboratory Data (Last 24 Hrs):: 09/30/22 10/01/22 13:47 11:54 Sodium 141 141 Potassium 3.8 4.2 Chloride 102 109 H Carbon Dioxide 23 21 BUN 21 17 Creatinine 0.90 0.82 Glucose 72 75 Calcium 10.5 H 8.2 L D Phosphorus 2.8 Magnesium 1.6 L Total Bilirubin 1.2 H D AST 65 H ALT 142 H Alkaline Phosphatase 174 H Albumin 4.9 Triglycerides 70 Nutrition Assessment:: Please refer to the Notes section of the EMR for the most recent outdoor fitness trainer note. - Plan Patient known to pharmacy as recently admitted for parenteral nutrition. He has extensive PMH of bowel resection x 2, abdominal wall reconstruction 08/24/22. Last admission he had partial bowel obstruction requiring prolonged stay. He was having pain and nausea/vomiting therefore came back to hospital. Patient currently only has peripheral access. Confirmed with IV team okay to use for parenteral nutrition. Will start conservatively with PPN today at about ~75% of goal kcal. Patient previously receiving lipids 2x weekly Mon/Thurs due to elevations in AST/ALT. Labs appropriate today, will add lipids today For day 1 of PN administration, the following will be ordered: * Mg low - provider okay 1 gm iv prior to PPN start * LR fluids to stop with PPN start Allergies Macronutrients Amino acids 85 grams/day Dextrose 100 grams/day Lipids 50 grams/day Micronutrients Combined electrolytes 20 mL - contains 35 mEq Na, 20 meq K, 4.5 mEq Ca, 5 mEq Mg, 35 mEq Cl, 29.5 mEq acetate per 20 mL Sodium phosphate 12 MMol Sodium chloride 30 mEq Sodium acetate 70 mEq Potassium acetate 20 mEq Multivitamins 10 mL Trace Elements 10 mL Additional additives: 100 mg thiamine Total volume 2093 mL to be infused over 24 hrs will provide 1180 kcal/day Final osmolarity 832 mOsm/L (maximum for PPN is 900 mOsm/L) Labs to be ordered per PN order protocol Pharmacy will follow and adjust parenteral nutrition orders on a daily basis. Thank you.
[2022-10-01] MEDS ORDERED: [UNRECOGNIZED DRUG - OTHER] IV SCH (16:00)
[2022-10-01] MEDS ORDERED: DEXTROSE 10% 1,000 ML IV PRN (16:00)
[2022-10-01] MEDS ORDERED: PERIPHERAL TPN IV SCH (16:00)
[2022-10-01] MEDS ORDERED: [UNRECOGNIZED DRUG - REMARK] ONE (16:00)
[2022-10-01] MEDS ORDERED: CLINOLIPID 20% IV FAT EMULSION 250 ML IV SCH (16:00)
[2022-10-01] MEDS ORDERED: HYDROmorphone INJ 0.5 MG/0.5 ML SYR IV PRN (18:34)
[2022-10-01] MEDS: STOP CLINOLIPID SCH (21:50)
[2022-10-01] MEDS: LORazepam 2 MG/1 ML VIAL IV PRN (21:50)
[2022-10-02] MEDS: HYDROmorphone INJ 0.5 MG/0.5 ML SYR IV PRN ×10 (02:02→23:23)
[2022-10-02] MEDS: ACETAMINOPHEN 1,000 MG/100 ML VIAL IV SCH ×3 (03:59→20:54)
[2022-10-02 06:28] LABS: Basophils # (auto) 0.03 K/uL (0-0.2); Basophils % (auto) 0.3 %; Eosinophils # (auto) 0.09 K/uL (0-0.50); Eosinophils % (auto) 0.9 %; Hematocrit (blood only) 31.1 % (42.0-52.0); Hemoglobin 10.3 g/dl (14.0-18.0); Immature Granulocytes # (auto) 0.03 K/uL (0.01-0.20); Immature Granulocytes % (auto) 0.3 %; Lymphocytes # (auto) 2.27 K/uL (1.2-3.4); Lymphocytes % (auto) 22.8 %; Mean Corpuscular Hemoglobin 29.2 pg (25.0-34.0); Mean Corpuscular Hgb Conc 33.1 g/dL (32.0-36.0); Mean Corpuscular Volume 88.1 fL (80.0-100.0); Mean Platelet Volume 11.2 fL (9.4-12.4); Monocytes # (auto) 0.88 K/uL (0.11-0.59); Monocytes % (auto) 8.8 %; Neutrophils # (auto) 6.65 K/uL (1.40-6.50); Neutrophils % (auto) 66.9 %; Platelet Count 173 K/uL (130-400); RDW Coefficient of Variation 14.3 % (11.5-14.5); RDW Standard Deviation 46.1 fL (36.4-46.3); Red Blood Count 3.53 M/uL (4.70-6.10); White Blood Count 9.95 K/ul (4.8-10.8)
[2022-10-02 06:43] LABS: Anion Gap 5 (3-11); BUN Creatinine Ratio 17.7 (10-20); Blood Urea Nitrogen 11 mg/dl (6-23); Calcium 7.8 mg/dl (8.6-10.3); Carbon Dioxide 26 mmol/L (21-32); Chloride 107 mmol/L (98-107); Creatinine Clr Calc Pharmacy 162.9 ml/min; Est GFR (African American) > 150.0 ml/min; Est GFR (Non-African American) 136.9 ml/min; Glucose 120 mg/dl (70-99(Fasting)); Magnesium 1.8 mg/dl (1.7-2.4); Phosphorus 1.7 mg/dl (2.5-4.9); Potassium 3.5 mmol/L (3.5-5.1); Sodium 138 mmol/L (136-145)
[2022-10-02] MEDS ORDERED: POTASSIUM PHOSPHATE 15 MMOL in SODIUM CHLORIDE 0.9% 250 ML IV ONE (10:45)
--- NOTE | 2022-10-02 11:54 | Surgery Progress Note ---
Date of Service October 02, 2022 Assessment & Plan (1) Partial small bowel obstruction: Plan: Very difficult scenario. Patient with hostile abdomen and currently inoperable. We will need to replace his PICC line and restart TPN. I will reach out to some tertiary centers on Tuesday and see if someone can do an interventional radiology guided venting gastrostomy tube. This may take several months to either get better or become operable. The plan would be for outpatient TPN and gastrostomy tube. For now supportive care. Admission and Anticipated Discharge Date Admission Date: September 30, 2022 Subjective Patient seen. Having expected incisional pain. No bowel movements but he does feel some gurgling. Physical Exam Physical Exam: Alert and oriented no acute distress NG tube in place Abdomen is soft with expected tenderness. Dressing is clean and dry Results & Data Vital Signs (Past 12 Hours) Vital Signs Temp Pulse Resp BP BP Pulse Ox O2 Del Method 10/02/22 07:57 36.6 C 63 18 111/69 98 Room Air 10/02/22 04:19 36.5 C 81 16 121/75 97 Room Air 10/01/22 23:54 36.9 C 91 H 14 104/62 97 Room Air PG Care Time/CCT Total # of Minutes Spent Total Time Spent with Patient: Total time spent is greater than 50% in coordination of care (as documented) at patient's floor/unit and/or counseling patient: Coding Level of Care Code 14280 Post Operative Follow-Up Diagnoses Partial small bowel obstruction K56.600
[2022-10-02] MEDS ORDERED: [UNRECOGNIZED DRUG - OTHER] IV SCH (16:00)
[2022-10-02] MEDS ORDERED: PERIPHERAL TPN IV SCH (16:00)
[2022-10-02] MEDS: LORazepam 2 MG/1 ML VIAL IV PRN (20:54)
[2022-10-03] MEDS: HYDROmorphone INJ 0.5 MG/0.5 ML SYR IV PRN ×11 (01:33→23:59)
[2022-10-03] MEDS: ACETAMINOPHEN 1,000 MG/100 ML VIAL IV SCH ×3 (03:39→19:55)
[2022-10-03 06:43] LABS: Anion Gap 5 (3-11); BUN Creatinine Ratio 19.1 (10-20); Blood Urea Nitrogen 9 mg/dl (6-23); Calcium 8.3 mg/dl (8.6-10.3); Carbon Dioxide 28 mmol/L (21-32); Chloride 106 mmol/L (98-107); Creatinine Clr Calc Pharmacy 214.9 ml/min; Est GFR (African American) > 150.0 ml/min; Est GFR (Non-African American) > 150.0 ml/min; Glucose 106 mg/dl (70-99(Fasting)); Magnesium 1.8 mg/dl (1.7-2.4); Phosphorus 2.8 mg/dl (2.5-4.9); Potassium 3.4 mmol/L (3.5-5.1); Sodium 139 mmol/L (136-145)
--- NOTE | 2022-10-03 09:21 | Surgery Progress Note ---
Date of Service October 03, 2022 Assessment & Plan (1) SBO (small bowel obstruction): Plan: PICC line ordered and will resume TPN. I am going to contact some tertiary facilities to try and obtain an interventional radiology placement of a gastrostomy tube. He will likely require several months of TPN and gastric decompression. Admission and Anticipated Discharge Date Admission Date: September 30, 2022 Subjective Patient seen. Looks better than yesterday. No bowel function yet. Physical Exam Physical Exam: Alert no acute distress. Abdomen with expected surgical tenderness Results & Data Vital Signs (Past 12 Hours) Vital Signs Temp Pulse Resp BP Pulse Ox O2 Del Method 10/03/22 07:14 36.8 C 66 18 109/72 98 Room Air PG Care Time/CCT Total # of Minutes Spent Total Time Spent with Patient: Total time spent is greater than 50% in coordination of care (as documented) at patient's floor/unit and/or counseling patient: Coding Level of Care Code 94530 Post Operative Follow-Up Diagnoses SBO (small bowel obstruction) K56.609
--- NOTE | 2022-10-03 12:40 | XRay Report ---
XR chest 1V portable CLINICAL HISTORY: PICC placement TECHNIQUE: Single frontal radiograph of the chest was obtained. Comparison: Comparison is made to chest radiograph 09/01/2022 FINDINGS: Right PIC catheter terminates in the cavoatrial junction. Enteric tube side-port and tip lies below t he diaphragm. The cardiomediastinal silhouette is normal. The lungs are clear. No evidence of pleural effusion or pneumothorax. IMPRESSION: Satisfactory appearance of right PICC. ACT 112: Negative or not required by law. Electronically signed by: Marty Melgar M.D. 10/03/2022 12:17 PM
[2022-10-03] MEDS ORDERED: CENTRAL TPN IV SCH (16:00)
[2022-10-03] MEDS ORDERED: [UNRECOGNIZED DRUG - OTHER] IV SCH (16:00)
[2022-10-03] MEDS: LORazepam 2 MG/1 ML VIAL IV PRN (19:59)
[2022-10-04] MEDS: HYDROmorphone INJ 0.5 MG/0.5 ML SYR IV PRN ×10 (02:01→21:35)
[2022-10-04] MEDS: ACETAMINOPHEN 1,000 MG/100 ML VIAL IV SCH (04:24)
[2022-10-04 06:33] LABS: Anion Gap 6 (3-11); BUN Creatinine Ratio 27.1 (10-20); Blood Urea Nitrogen 13 mg/dl (6-23); Calcium 8.6 mg/dl (8.6-10.3); Carbon Dioxide 27 mmol/L (21-32); Chloride 105 mmol/L (98-107); Creatinine Clr Calc Pharmacy 210.5 ml/min; Est GFR (African American) > 150.0 ml/min; Est GFR (Non-African American) > 150.0 ml/min; Glucose 114 mg/dl (70-99(Fasting)); Magnesium 1.8 mg/dl (1.7-2.4); Phosphorus 3.3 mg/dl (2.5-4.9); Potassium 3.6 mmol/L (3.5-5.1); Sodium 138 mmol/L (136-145)
--- NOTE | 2022-10-04 09:56 | Surgery Progress Note ---
Date of Service October 04, 2022 Assessment & Plan (1) SBO (small bowel obstruction): Plan: PICC line placed and TPN started I am going to reach out to some physicians to see if we can find a way to get interventional radiology to do a percutaneous gastrostomy tube for us. My short-term plan is to obtain a gastrostomy tube and send him home with TPN and gastric decompression Admission and Anticipated Discharge Date Admission Date: September 30, 2022 Subjective Patient seen. Overall feeling okay. No flatus or bowel movement yet. Physical Exam Physical Exam: Alert. No acute distress His incision looks great Abdomen soft. There is some bowel sounds Results & Data Vital Signs (Past 12 Hours) Vital Signs Temp Pulse Resp BP Pulse Ox O2 Del Method 10/04/22 07:30 36.8 C 70 12 110/72 97 Room Air PG Care Time/CCT Total # of Minutes Spent Total Time Spent with Patient: Total time spent is greater than 50% in coordination of care (as documented) at patient's floor/unit and/or counseling patient: Coding Level of Care Code 71652 Post Operative Follow-Up Diagnoses SBO (small bowel obstruction) K56.609
[2022-10-04] MEDS ORDERED: CENTRAL TPN IV SCH (16:00)
[2022-10-04] MEDS ORDERED: CLINOLIPID 20% IV FAT EMULSION 250 ML IV SCH (16:00)
[2022-10-04] MEDS ORDERED: [UNRECOGNIZED DRUG - OTHER] IV SCH (16:00)
[2022-10-04] MEDS: LORazepam 2 MG/1 ML VIAL IV PRN (19:43)
[2022-10-04] MEDS: ONDANSETRON INJ 2 MG/ML 2 ML VIAL IV PRN (21:09)
[2022-10-04] MEDS: STOP CLINOLIPID SCH (22:55)
[2022-10-05] MEDS: HYDROmorphone INJ 0.5 MG/0.5 ML SYR IV PRN ×10 (00:27→20:00)
[2022-10-05 07:05] LABS: Anion Gap 7 (3-11); Bilirubin,Total 0.5 mg/dl (0.2-1.0); Calcium 8.9 mg/dl (8.6-10.3); Carbon Dioxide 26 mmol/L (21-32); Chloride 105 mmol/L (98-107); Magnesium 1.8 mg/dl (1.7-2.4); Potassium 3.9 mmol/L (3.5-5.1); Sodium 138 mmol/L (136-145)
[2022-10-05 07:31] LABS: Alkaline Phosphatase 121 U/L (34-104); Aspartate Aminotransferase 27 U/L (13-39); BUN Creatinine Ratio 28.8 (10-20); Blood Urea Nitrogen 15 mg/dl (6-23); Creatinine Clr Calc Pharmacy 194.3 ml/min; Est GFR (African American) > 150.0 ml/min; Est GFR (Non-African American) 147.2 ml/min; Glucose 110 mg/dl (70-99(Fasting)); Phosphorus 3.7 mg/dl (2.5-4.9)
--- NOTE | 2022-10-05 08:37 | Surgery Progress Note ---
Date of Service October 05, 2022 Assessment & Plan (1) SBO (small bowel obstruction): Plan: I spoke this morning with interventional radiology at [facility]. They are going to look at his CT scans and get back to me to see if they can place a percutaneous gastrostomy tube. If they cannot Dr. Ricks has some novel techniques that he may be able to get one in. The goal is to get him home with a venting gastrostomy tube as well as TPN. In a few days to a week I would like to start some budesonide as well to try and decrease his bowel inflammation. Admission and Anticipated Discharge Date Admission Date: September 30, 2022 Subjective Patient seen. Doing okay. He is starting to pass some flatus finally. His main complaint is NG tube discomfort. No bowel movement yet Physical Exam Physical Exam: Alert. No acute distress Abdomen is soft with expected incisional tenderness. Incision looks good Results & Data Vital Signs (Past 12 Hours) Vital Signs Temp Pulse Resp BP Pulse Ox O2 Del Method 10/05/22 07:52 36.7 C 79 16 110/73 98 Room Air 10/04/22 21:32 37.4 C 82 16 127/84 98 Room Air PG Care Time/CCT Total # of Minutes Spent Total Time Spent with Patient: Total time spent is greater than 50% in coordination of care (as documented) at patient's floor/unit and/or counseling patient: Coding Level of Care Code 69287 Post Operative Follow-Up Diagnoses SBO (small bowel obstruction) K56.609
[2022-10-05] MEDS: ONDANSETRON INJ 2 MG/ML 2 ML VIAL IV PRN (09:28)
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
[2022-10-05] MEDS ORDERED: D5W AND 1/2NSS 1,000 ML IV SCH (18:00)
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
== END 2022-10-05 22:47 | disposition short-term general hospital (02) | DRG 357 ==
LOC: ED 11:35 → 3E 17:11

== ENCOUNTER 2022-10-07 23:02 | Inpatient (IN) ==
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
[2022-10-07] MEDS ORDERED: HYDROmorphone INJ 0.5 MG/0.5 ML SYR IV PRN (23:24)
[2022-10-07] MEDS: LACTATED RINGER'S 1,000 ML IV SCH (23:51)
[2022-10-08] MEDS: LORazepam 2 MG/1 ML VIAL IV PRN ×2 (00:09→22:32)
[2022-10-08 06:48] LABS: Basophils # (auto) 0.03 K/uL (0-0.2); Basophils % (auto) 0.4 %; Eosinophils # (auto) 0.19 K/uL (0-0.50); Eosinophils % (auto) 2.7 %; Hematocrit (blood only) 33.6 % (42.0-52.0); Hemoglobin 11.3 g/dl (14.0-18.0); Immature Granulocytes # (auto) 0.02 K/uL (0.01-0.20); Immature Granulocytes % (auto) 0.3 %; Lymphocytes # (auto) 1.52 K/uL (1.2-3.4); Lymphocytes % (auto) 21.6 %; Mean Corpuscular Hemoglobin 28.6 pg (25.0-34.0); Mean Corpuscular Hgb Conc 33.6 g/dL (32.0-36.0); Mean Corpuscular Volume 85.1 fL (80.0-100.0); Mean Platelet Volume 10.7 fL (9.4-12.4); Monocytes # (auto) 0.54 K/uL (0.11-0.59); Monocytes % (auto) 7.7 %; Neutrophils # (auto) 4.74 K/uL (1.40-6.50); Neutrophils % (auto) 67.3 %; Platelet Count 266 K/uL (130-400); RDW Standard Deviation 43.8 fL (36.4-46.3); Red Blood Count 3.95 M/uL (4.70-6.10); White Blood Count 7.04 K/ul (4.8-10.8)
[2022-10-08] MEDS ORDERED: TPN/PPN CONSULT PHARMACY PRN (06:49)
[2022-10-08 07:24] LABS: Alanine Aminotransferase 58 U/L (7-52); Albumin Globulin Ratio 1.2 (0.9-2); Albumin Level 3.6 gm/dl (3.4-5.0); Alkaline Phosphatase 144 U/L (34-104); Anion Gap 7 (3-11); Aspartate Aminotransferase 33 U/L (13-39); BUN Creatinine Ratio 15.5 (10-20); Bilirubin,Total 1.1 mg/dl (0.2-1.0); Blood Urea Nitrogen 9 mg/dl (6-23); Calcium 8.8 mg/dl (8.6-10.3); Carbon Dioxide 26 mmol/L (21-32); Chloride 105 mmol/L (98-107); Creatinine Clr Calc Pharmacy 174.2 ml/min; Est GFR (African American) > 150.0 ml/min; Est GFR (Non-African American) 140.7 ml/min; Glucose 87 mg/dl (70-99(Fasting)); Magnesium 1.8 mg/dl (1.7-2.4); Potassium 3.8 mmol/L (3.5-5.1); Sodium 138 mmol/L (136-145); Total Protein 6.6 gm/dl (6.0-8.3)
[2022-10-08] MEDS: ACETAMINOPHEN 1,000 MG/100 ML VIAL IV PRN (08:47)
[2022-10-08] MEDS: HYDROmorphone INJ 0.5 MG/0.5 ML SYR IV PRN ×5 (09:39→22:32)
[2022-10-08] MEDS: LACTATED RINGER'S 1,000 ML IV SCH (09:42)
[2022-10-08] MEDS ORDERED: TPN/PPN CONSULT PHARMACY STA (09:53)
[2022-10-08 10:26] LABS: Phosphorus 3.9 mg/dl (2.5-4.9)
--- NOTE | 2022-10-08 10:40 | Surgery Progress Note ---
Date of Service October 08, 2022 Assessment & Plan (1) SBO (small bowel obstruction): Plan: very difficult case. abdomen currently inoperable. unfortunately GI or IR unable to place G-tube. cont tpn will add solumedrol as d/w Dr. Little to try and decrease sb inflammation will reach out to [facility] on Tuesday to see if they have any thoughts or willing to transfer...may need perc J-tube vs thoracic repair of hiatal hernia with G-tube placement. [facility] covering for weekend. Admission and Anticipated Discharge Date Admission Date: October 07, 2022 Subjective pt seen. doing ok. starting to pass some flatus. much less ngt output. having some incisional pain still. Physical Exam Physical Exam: abd: soft. incision looks good. +bs's. non-distended. Results & Data Vital Signs (Past 12 Hours) Vital Signs Temp Pulse Resp BP Pulse Ox O2 Del Method 10/08/22 09:00 36.7 C 73 18 114/75 98 Room Air 10/08/22 03:24 36.8 C 78 16 124/80 96 Room Air 10/07/22 23:40 36.7 C 78 18 126/81 100 Room Air PG Care Time/CCT Total # of Minutes Spent Total Time Spent with Patient: Total time spent is greater than 50% in coordination of care (as documented) at patient's floor/unit and/or counseling patient: Coding Level of Care Code 20338 Post Operative Follow-Up Diagnoses SBO (small bowel obstruction) K56.609
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
[2022-10-08] MEDS ORDERED: DEXTROSE 10% 1,000 ML IV PRN (12:23)
--- NOTE | 2022-10-08 15:25 | Pharmacy Report ---
PHA: Parenteral Nutrition Con - Date of Service October 08, 2022 - [facility] was consulted on 10/08/22 to manage parenteral nutrition orders for this patient. - Ruiz Acuna has been on PPN/TPN since 08/31/22 (was held a few days during this period) for partial SBO, h/o bowel resection x 2, and abdominal wall reconstruction 08/24/22. On 10/01/[address] a G-tube, however, the patient was found to have a hostile abdomen and the procedure was aborted. Patient was transferred to [facility] on 10/05/22 with plans to have a G-tube placed by interventional radiology as well as gastroenterology but this was unsuccessful. Patient returned to [facility]. Plan to resume TPN. Awaiting additional surgery recommendations. - Objective Height: 5 ft 6 in Weight: 68.3 kg Diet: NPO Intake & Output (24hrs):: Intake & Output 10/06/22 10/07/22 10/08/22 10/09/22 06:59 06:59 06:59 06:59 Intake Total 1085 / 1085 Output Total 1375 / 1375 Balance -290 / -290 Weight 68.3 kg 68.3 kg Laboratory Data (Last 24 Hr):: 10/08/22 05:58 Sodium 138 Potassium 3.8 Chloride 105 Carbon Dioxide 26 BUN 9 Creatinine 0.58 L Glucose 87 Calcium 8.8 Phosphorus 3.9 Magnesium 1.8 Total Bilirubin 1.1 H AST 33 ALT 58 H Alkaline Phosphatase 144 H Albumin 3.6 Nutrition Assessment:: Please refer to the Notes section of the EMR for the most recent soc analyst note. - Assessment History of partial SBO, h/o bowel resection x 2, and abdominal wall reconstruction on 08/24/22. Failed G-tube placement on 10/01/22 due to hostile abdomen. Failed G[facility]tube placement at [facility] on 10/06/22. Plan to continue on TPN at this time. * Will resume previous orders per macronutrients were at goal * Liver enzymes improved compared to previous days (Alk phos and total bilirubin remain slightly elevated) * Discontinue LR when TPN starts - Plan For day 1 of PN this admission (patient has been on PPN or TPN since 08/31/30), the following will be ordered: Macronutrients Amino acids 125 grams/day Dextrose 218 grams/day Lipids 50 grams/day Micronutrients Combined electrolytes 20 mL - contains 35 mEq Na, 20 meq K, 4.5 mEq Ca, 5 mEq Mg, 35 mEq Cl, 29.5 mEq acetate per 20 mL Sodium phosphate 15 MMol Sodium chloride 30 mEq Sodium acetate 20 mEq Potassium acetate 70 mEq Multivitamins 10 mL Trace Elements 1 mL Additional additives: thiamine 100 mg Total volume 1654 mL to be infused over 24 hrs will provide 1242 kcal/day Labs, as indicated, will be ordered per protocol Pharmacy will continue to follow and adjust parenteral nutrition orders on a daily basis. Thank you for allowing us to participate in the care of this patient.
[2022-10-08] MEDS ORDERED: CENTRAL TPN IV SCH (16:00)
[2022-10-08] MEDS ORDERED: [UNRECOGNIZED DRUG - OTHER] IV SCH (16:00)
[2022-10-08] MEDS ORDERED: CLINOLIPID 20% IV FAT EMULSION 250 ML IV SCH ×2 (16:00→22:00)
[2022-10-08] MEDS: ONDANSETRON INJ 2 MG/ML 2 ML VIAL IV PRN (17:33)
[2022-10-08] MEDS: methylPREDNISolone 30 MG in SYRINGE 0 ML IV SCH (21:46)
[2022-10-08] MEDS: STOP CLINOLIPID SCH (21:46)
[2022-10-09] MEDS: HYDROmorphone INJ 0.5 MG/0.5 ML SYR IV PRN ×6 (05:16→22:43)
[2022-10-09 07:14] LABS: Anion Gap 8 (3-11); Blood Urea Nitrogen 13 mg/dl (6-23); Carbon Dioxide 27 mmol/L (21-32); Chloride 105 mmol/L (98-107); Est GFR (African American) > 150.0 ml/min; Est GFR (Non-African American) 149.6 ml/min; Glucose 132 mg/dl (70-99(Fasting)); Magnesium 1.8 mg/dl (1.7-2.4); Phosphorus 3.3 mg/dl (2.5-4.9); Potassium 3.9 mmol/L (3.5-5.1); Sodium 140 mmol/L (136-145); Triglycerides 80 mg/dl (0-150)
[2022-10-09] MEDS: methylPREDNISolone 30 MG in SYRINGE 0 ML IV SCH ×2 (09:03→20:38)
--- NOTE | 2022-10-09 12:49 | Surgery Progress Note ---
Date of Service October 09, 2022 Assessment & Plan (1) SBO (small bowel obstruction): Plan: very difficult case. abdomen currently inoperable. unfortunately GI or IR unable to place G-tube. cont tpn Plan is to reach out to [facility] on Tuesday to see if they have any thoughts or willing to transfer...may need perc J-tube vs thoracic repair of hiatal hernia with G-tube placement. Admission and Anticipated Discharge Date Admission Date: October 07, 2022 Subjective pt seen. doing ok. Continues to pass flatus. Minimal incisional pain. Physical Exam Physical Exam: abd: soft. incision looks good. +bs's. non-distended. Results & Data Vital Signs (Past 12 Hours) Vital Signs Temp Pulse Resp BP Pulse Ox O2 Del Method 10/09/22 07:37 37 C 71 16 101/63 97 Room Air
[2022-10-09] MEDS ORDERED: CLINOLIPID 20% IV FAT EMULSION 250 ML IV SCH (16:00)
[2022-10-09] MEDS ORDERED: CENTRAL TPN IV SCH (16:00)
[2022-10-09] MEDS ORDERED: [UNRECOGNIZED DRUG - OTHER] IV SCH (16:00)
[2022-10-09] MEDS: LORazepam 2 MG/1 ML VIAL IV PRN (20:38)
[2022-10-09] MEDS: ACETAMINOPHEN 1,000 MG/100 ML VIAL IV PRN (20:38)
[2022-10-09] MEDS: STOP CLINOLIPID SCH (22:44)
[2022-10-10] MEDS: HYDROmorphone INJ 0.5 MG/0.5 ML SYR IV PRN ×7 (05:46→23:50)
[2022-10-10 07:01] LABS: Calcium 9.3 mg/dl (8.6-10.3); Carbon Dioxide 28 mmol/L (21-32); Magnesium 1.9 mg/dl (1.7-2.4); Sodium 143 mmol/L (136-145)
[2022-10-10 07:06] LABS: BUN Creatinine Ratio 32.7 (10-20); Blood Urea Nitrogen 16 mg/dl (6-23); Creatinine Clr Calc Pharmacy 206.2 ml/min; Est GFR (African American) > 150.0 ml/min; Est GFR (Non-African American) > 150.0 ml/min; Phosphorus 3.6 mg/dl (2.5-4.9)
[2022-10-10 07:08] LABS: Anion Gap 9 (3-11); Chloride 106 mmol/L (98-107); Glucose 113 mg/dl (70-99(Fasting))
[2022-10-10] MEDS: methylPREDNISolone 30 MG in SYRINGE 0 ML IV SCH ×2 (08:28→20:27)
--- NOTE | 2022-10-10 11:12 | Surgery Progress Note ---
Date of Service October 10, 2022 Assessment & Plan (1) SBO (small bowel obstruction): Plan: very difficult case. abdomen currently inoperable. unfortunately GI or IR unable to place G-tube. cont tpn Plan is to reach out to [facility] on Tuesday to see if they have any thoughts or willing to transfer...may need perc J-tube vs thoracic repair of hiatal hernia with G-tube placement. Admission and Anticipated Discharge Date Admission Date: October 07, 2022 Subjective pt seen. doing ok. Continues to pass flatus. Minimal incisional pain. Physical Exam Physical Exam: abd: soft. incision looks good. +bs's. non-distended. Results & Data Vital Signs (Past 12 Hours) Vital Signs Temp Pulse Resp BP Pulse Ox O2 Del Method 10/10/22 07:08 36.7 C 61 18 106/68 99 Room Air
[2022-10-10] MEDS ORDERED: CLINOLIPID 20% IV FAT EMULSION 250 ML IV SCH (16:00)
[2022-10-10] MEDS ORDERED: CENTRAL TPN IV SCH (16:00)
[2022-10-10] MEDS ORDERED: [UNRECOGNIZED DRUG - OTHER] IV SCH (16:00)
[2022-10-10] MEDS: LORazepam 2 MG/1 ML VIAL IV PRN (20:27)
[2022-10-10] MEDS: STOP CLINOLIPID SCH (22:11)
[2022-10-11] MEDS: HYDROmorphone INJ 0.5 MG/0.5 ML SYR IV PRN ×6 (05:20→21:25)
[2022-10-11 07:35] LABS: Anion Gap 7 (3-11); BUN Creatinine Ratio 34.7 (10-20); Blood Urea Nitrogen 17 mg/dl (6-23); Calcium 9.1 mg/dl (8.6-10.3); Carbon Dioxide 28 mmol/L (21-32); Chloride 107 mmol/L (98-107); Creatinine Clr Calc Pharmacy 206.2 ml/min; Est GFR (African American) > 150.0 ml/min; Est GFR (Non-African American) > 150.0 ml/min; Glucose 112 mg/dl (70-99(Fasting)); Magnesium 1.9 mg/dl (1.7-2.4); Phosphorus 4.1 mg/dl (2.5-4.9); Potassium 3.8 mmol/L (3.5-5.1); Sodium 142 mmol/L (136-145)
[2022-10-11] MEDS: methylPREDNISolone 30 MG in SYRINGE 0 ML IV SCH ×2 (08:20→21:24)
--- NOTE | 2022-10-11 08:57 | Surgery Progress Note ---
Date of Service October 11, 2022 Assessment & Plan (1) SBO (small bowel obstruction): Plan: Patient here with SBO in setting of frozen/hostile abdomen with multiple aborted attempts at placing venting gastrostomy tube NGT remains in place to LIWS. Patient taking in some sips of clears He reports passing flatus. No BM. Ambulating hallways Plan to obtain KUB to evaluate bowel/gas pattern Will review patient's case with surgery group at [facility] for possible transfer as patient would be best served at a tertiary center at this point as above. recheck kub ....clinically looks good. awaiting call back from [facility]. Admission and Anticipated Discharge Date Admission Date: October 07, 2022 Subjective Patient doing okay. Reports passing large amounts of flatus. No BM since surgery. Pain controlled on regimen. Has been ambulating the halls frequently. Physical Exam Physical Exam: awake/alert, no distress Gastrointestinal (Abdomen): Inspection/Auscultation: + abdominal surgical incision (midline incision c/d/i) Percussion/Palpation: abdomen soft Results & Data Vital Signs (Past 12 Hours) Vital Signs Temp Pulse Resp BP Pulse Ox O2 Del Method 10/11/22 07:29 36.7 C 63 16 94/60 L 96 Room Air 10/11/22 00:22 36.2 C L 69 16 96/64 L 96 Room Air PG Care Time/CCT Total # of Minutes Spent Total Time Spent with Patient: Total time spent is greater than 50% in coordination of care (as documented) at patient's floor/unit and/or counseling patient: Coding Level of Care Code 50265 Post Operative Follow-Up Diagnoses SBO (small bowel obstruction) K56.609
--- NOTE | 2022-10-11 10:09 | XRay Report ---
KUB CLINICAL HISTORY: Generalized abdominal pain. FINDINGS: 3 AP supine abdominal radiographs are compared to study dated 09/27/2022 and correlated with abdominal CT dated 09/30/2022. An enteric tube projects below the diaphragm over the gastric fundus. Suture material projects over the right midabdomen and the left lower quadrant. There is a nonspecifi c abdominal bowel gas pattern. Mildly distended loops of small bowel are seen in the left upper quadr ant. No evidence of intraperitoneal free air is identified on these supine images. There are no abnor mal abdominal calcifications. The bony structures appear intact. Postsurgical change is noted in the left proximal femur. IMPRESSION: 1. An enteric tube is in place as above. 2. Nonspecific abdominal bowel gas pattern. Gaseous distention of small bowel loops in the left abdom en is similar to previous and likely represents at least partial obstruction Electronically signed by: Mars Velazquez M.D. 10/11/2022 10:06 AM
[2022-10-11] MEDS ORDERED: CLINOLIPID 20% IV FAT EMULSION 250 ML IV SCH (16:00)
[2022-10-11] MEDS ORDERED: CENTRAL TPN IV SCH (16:00)
[2022-10-11] MEDS ORDERED: [UNRECOGNIZED DRUG - OTHER] IV SCH (16:00)
[2022-10-11] MEDS: ONDANSETRON INJ 2 MG/ML 2 ML VIAL IV PRN (21:24)
[2022-10-11] MEDS: LORazepam 2 MG/1 ML VIAL IV PRN (21:28)
[2022-10-11] MEDS: STOP CLINOLIPID SCH (22:06)
[2022-10-12] MEDS: HYDROmorphone INJ 0.5 MG/0.5 ML SYR IV PRN ×7 (02:27→22:17)
--- NOTE | 2022-10-12 08:49 | Surgery Progress Note ---
Date of Service October 12, 2022 Assessment & Plan (1) SBO (small bowel obstruction): Plan: Patient here with SBO in setting of frozen/hostile abdomen with multiple aborted attempts at placing venting gastrostomy tube NGT remains in place to LIWS. Patient taking in some sips of clears He reports passing flatus. No BM. Ambulating hallways KUB yesterday revealed stable findings, with evidence of partial SBO Still in discussions with tertiary center to review case for possible transfer, will f/u with them today Clinically looks good. Almost nothing is NG tube output other than thin saliva and Gatorade. No bilious drainage at all. We will continue to keep his NG tube clamped and let him try and drink over the next day or 2 and see how he does. Still waiting to hear back from [facility] today. If no response I may reach out to another tertiary center tomorrow. Admission and Anticipated Discharge Date Admission Date: October 07, 2022 Subjective Patient stable. Continues to pass flatus, no BM. Pain controlled. Physical Exam Physical Exam: awake/alert, no distress Respiratory: normal respiratory effort Gastrointestinal (Abdomen): Inspection/Auscultation: + abdominal surgical incision (c/d/i, healing well without signs of infection); abdomen not distended Percussion/Palpation: + abdomen tender (very mild discomfort) and abdomen soft Results & Data Vital Signs (Past 12 Hours) Vital Signs Temp Pulse Resp BP Pulse Ox O2 Del Method 10/12/22 07:37 36.6 C 62 16 98/61 L 98 Room Air 10/11/22 21:27 37.0 C 70 16 116/72 98 Room Air PG Care Time/CCT Total # of Minutes Spent Total Time Spent with Patient: Total time spent is greater than 50% in coordination of care (as documented) at patient's floor/unit and/or counseling patient: Coding Level of Care Code 50280 Post Operative Follow-Up Diagnoses SBO (small bowel obstruction) K56.609
[2022-10-12] MEDS: ONDANSETRON INJ 2 MG/ML 2 ML VIAL IV PRN ×3 (09:47→19:31)
[2022-10-12] MEDS: methylPREDNISolone 30 MG in SYRINGE 0 ML IV SCH ×2 (09:48→19:31)
[2022-10-12] MEDS ORDERED: [UNRECOGNIZED DRUG - OTHER] IV SCH (16:00)
[2022-10-12] MEDS ORDERED: CLINOLIPID 20% IV FAT EMULSION 250 ML IV SCH (16:00)
[2022-10-12] MEDS ORDERED: CENTRAL TPN IV SCH ×2 (16:00)
[2022-10-12] MEDS ORDERED: [UNRECOGNIZED DRUG - OTHER] IV SCH (16:00)
[2022-10-12] MEDS: LORazepam 2 MG/1 ML VIAL IV PRN (19:40)
[2022-10-12] MEDS: STOP CLINOLIPID SCH (22:16)
[2022-10-13] MEDS: ONDANSETRON INJ 2 MG/ML 2 ML VIAL IV PRN ×2 (01:14→21:36)
[2022-10-13] MEDS: HYDROmorphone INJ 0.5 MG/0.5 ML SYR IV PRN ×7 (01:15→21:31)
[2022-10-13 07:20] LABS: Anion Gap 5 (3-11); BUN Creatinine Ratio 34.6 (10-20); Blood Urea Nitrogen 18 mg/dl (6-23); Calcium 9.1 mg/dl (8.6-10.3); Carbon Dioxide 30 mmol/L (21-32); Chloride 106 mmol/L (98-107); Creatinine Clr Calc Pharmacy 194.3 ml/min; Est GFR (African American) > 150.0 ml/min; Est GFR (Non-African American) 147.2 ml/min; Glucose 110 mg/dl (70-99(Fasting)); Magnesium 1.9 mg/dl (1.7-2.4); Potassium 3.7 mmol/L (3.5-5.1); Sodium 141 mmol/L (136-145); Triglycerides 111 mg/dl (0-150)
--- NOTE | 2022-10-13 07:43 | Surgery Progress Note ---
Date of Service October 13, 2022 Assessment & Plan (1) SBO (small bowel obstruction): Plan: Patient here with SBO in setting of frozen/hostile abdomen with multiple aborted attempts at placing venting gastrostomy tube Patient has been passing flatus and we trialed clamping patient's NGT. He has done well with this without worsening symptoms and actually had 2 BMs yesterday. Continue clamping NGT and clears as tolerates Start PPI for heartburn/reflux Ambulate as able Still in discussions with tertiary center to review case for possible transfer, will f/u with them today in addition to possibly reaching out to some others Patient is doing okay clinically. He did tolerate liquids all day yesterday with his NG tube clamped. He has had 2 bowel movements overnight into this morning. He clearly has a partial obstruction and we have struggled to get him well enough to go home. I was able to discuss his case with Dr. Ghotra at the [facility]. He has agreed to transfer the patient and take over his care. We are hoping they will have an interventional radiologist who can place some sort of a gastrostomy tube so the patient can go home. I suspect he will need a prolonged bowel rest. We will plan transfer to the [facility] as soon as transportation is arranged Admission and Anticipated Discharge Date Admission Date: October 07, 2022 Subjective Patient is doing well. Tolerated NGT being clamped since yesterday while taking in clear liquids. No nausea/vomiting. No worsening abdominal pain. Passing flatus and actually had 2 BMs. Reports some heart burn. Physical Exam Physical Exam: awake/alert, no distress Respiratory: normal respiratory effort Gastrointestinal (Abdomen): Inspection/Auscultation: + abdominal surgical incision (c/d/i); abdomen not distended Percussion/Palpation: abdomen soft Results & Data Vital Signs (Past 12 Hours) Vital Signs Temp Pulse Resp BP BP Pulse Ox O2 Del Method 10/13/22 07:29 37.0 C 62 16 91/58 L 98 Room Air 10/12/22 22:07 36.2 C L 81 16 105/71 98 Room Air PG Care Time/CCT Total # of Minutes Spent Total Time Spent with Patient: Total time spent is greater than 50% in coordination of care (as documented) at patient's floor/unit and/or counseling patient: Coding Level of Care Code 61494 Post Operative Follow-Up Diagnoses SBO (small bowel obstruction) K56.609
--- NOTE | 2022-10-13 08:58 | Pharmacy Report ---
PHA: Parenteral Nutrition Con - Date of Service October 13, 2022 - Scope Pharmacy was consulted on 10/08/22 to manage parenteral nutrition orders for this patient. - Subjective The patient is currently on day #6 of central parenteral nutrition for partial SBO s/p bowel resection x 2 and abdominal wall reconstruction. - Objective Height: 5 ft 6 in Weight: 65 kg Diet: NPO Intake & Output (24hrs):: Intake & Output 10/11/22 10/12/22 10/13/22 10/14/22 06:59 06:59 06:59 06:59 Intake Total 1869.2 / 1869.2 1894 / 1894 2674 / 2674 Output Total 1750 / 1750 500 / 500 2176 / 2176 Balance 119.2 / 119.2 1394 / 1394 498 / 498 Weight 64.9 kg 65 kg Laboratory Data (Last 24 Hr):: 10/13/22 06:17 Sodium 141 Potassium 3.7 Chloride 106 Carbon Dioxide 30 BUN 18 Creatinine 0.52 L Glucose 110 H Calcium 9.1 Phosphorus 4.0 Magnesium 1.9 Triglycerides 111 Nutrition Assessment:: Please refer to the Notes section of the EMR for the most recent dowel pointer note. - Assessment * 10/13: * History of partial SBO, h/o bowel resection x 2, and abdominal wall reconstruction on 08/24/22. Failed G-tube placement on 10/01/22 due to hostile abdomen. Failed G-tube placement at [facility] on 10/06/22. Plan to continue on TPN at this time. * Electrolytes have been stable for several days - no changes to TPN today * Triglycerides WNL today - will reorder for next week - Plan For day #6 of TPN administration, the following will be ordered: Macronutrients Amino acids 125 grams/day Dextrose 218 grams/day Lipids 50 grams/day Micronutrients Combined electrolytes 20 mL - contains 35 mEq Na, 20 meq K, 4.5 mEq Ca, 5 mEq Mg, 35 mEq Cl, 29.5 mEq acetate per 20 mL Sodium phosphate 15 MMol Sodium chloride 30 mEq Sodium acetate 20 mEq Potassium acetate 70 mEq Multivitamins 10 mL Trace Elements 1 mL Thiamine 100 mg Total volume 1644 mL to be infused over 24 hrs will provide 1741 kcal/day Labs, as indicated, will be ordered per protocol Pharmacy will continue to follow and adjust parenteral nutrition orders on a daily basis. Thank you for allowing us to participate in the care of this patient.
[2022-10-13] MEDS: methylPREDNISolone 30 MG in SYRINGE 0 ML IV SCH ×2 (09:19→21:31)
[2022-10-13] MEDS ORDERED: ACETAMINOPHEN 1,000 MG/100 ML VIAL IV PRN (10:04)
[2022-10-13] MEDS: PANTOprazole 40 MG in SYRINGE 0 ML IV SCH (12:25)
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
[2022-10-13] MEDS ORDERED: CENTRAL TPN IV SCH ×2 (16:00)
[2022-10-13] MEDS ORDERED: [UNRECOGNIZED DRUG - OTHER] IV SCH (16:00)
[2022-10-13] MEDS ORDERED: CLINOLIPID 20% IV FAT EMULSION 250 ML IV SCH (16:00)
[2022-10-13] MEDS ORDERED: [UNRECOGNIZED DRUG - OTHER] IV SCH (16:00)
[2022-10-13] MEDS: STOP CLINOLIPID SCH (22:31)
[2022-10-13] MEDS: LORazepam 2 MG/1 ML VIAL IV PRN (22:31)
[2022-10-14] MEDS: HYDROmorphone INJ 0.5 MG/0.5 ML SYR IV PRN ×5 (05:06→17:52)
[2022-10-14] MEDS: methylPREDNISolone 30 MG in SYRINGE 0 ML IV SCH (08:16)
--- NOTE | 2022-10-14 09:39 | Surgery Progress Note ---
Date of Service October 14, 2022 Assessment & Plan (1) SBO (small bowel obstruction): Plan: Patient here with SBO in setting of frozen/hostile abdomen with multiple aborted attempts at placing venting gastrostomy tube Patient is doing well with NGT being clamped and tolerating small amount of clear liquids. He continues to pass flatus, had a couple BMs yesterday. He remains on TPN via PICC line for his nutrition [facility] agreed to accept patient in transfer for possible IR guided G tube placement. awaiting transport We will follow up with the patient in clinic when [facility] as above. awaiting transport to [facility]. Admission and Anticipated Discharge Date Admission Date: October 07, 2022 Subjective Patient continuing to do well. NGT has been clamped since Tuesday without replacing it to suction. + flatus. tolerating small amounts of clears. Physical Exam Physical Exam: awake/alert, no distress Gastrointestinal (Abdomen): Inspection/Auscultation: + abdominal surgical incision (c/d/i no signs of infection); abdomen not distended Percussion/Palpation: abdomen soft Results & Data Vital Signs (Past 12 Hours) Vital Signs Temp Pulse Resp BP Pulse Ox O2 Del Method 10/14/22 07:44 36.6 C 67 24 96/58 L 99 Room Air 10/14/22 02:59 36.5 C 72 16 99/65 L 96 Room Air 10/13/22 22:34 37.0 C 75 18 126/86 97 Room Air PG Care Time/CCT Total # of Minutes Spent Total Time Spent with Patient: Total time spent is greater than 50% in coordination of care (as documented) at patient's floor/unit and/or counseling patient: Coding Level of Care Code 23607 Post Operative Follow-Up Diagnoses SBO (small bowel obstruction) K56.609
[2022-10-14] MEDS: PANTOprazole 40 MG in SYRINGE 0 ML IV SCH (11:43)
[2022-10-14] MEDS ORDERED: CENTRAL TPN IV SCH (16:00)
[2022-10-14] MEDS ORDERED: CLINOLIPID 20% IV FAT EMULSION 250 ML IV SCH (16:00)
[2022-10-14] MEDS ORDERED: [UNRECOGNIZED DRUG - OTHER] IV SCH (16:00)
[2022-10-14] MEDS ORDERED: HYDROmorphone INJ 0.5 MG/0.5 ML SYR IV ONE (19:30)
== END 2022-10-14 20:09 | disposition short-term general hospital (02) | DRG 389 ==
LOC: 3E 23:35

== ENCOUNTER 2022-11-12 18:54 | Inpatient (IN) ==
[2022-11-12] MEDS ORDERED: SODIUM CHLORIDE 0.9% 1000ML 1,000 ML IV STA (19:13)
[2022-11-12] MEDS ORDERED: MoRPHine SULFATE 4 MG/ML 1 ML CARP\\VIAL IV STA (19:13)
[2022-11-12] MEDS ORDERED: ACETAMINOPHEN 1,000 MG/100 ML VIAL IV STA (19:13)
[2022-11-12] MEDS ORDERED: ONDANSETRON INJ 2 MG/ML 2 ML VIAL IV STA (19:13)
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
[2022-11-12 19:36] LABS: Basophils # (auto) 0.02 K/uL (0-0.2); Basophils % (auto) 0.2 %; Eosinophils # (auto) 0.02 K/uL (0-0.50); Eosinophils % (auto) 0.2 %; Hematocrit (blood only) 41.5 % (42.0-52.0); Immature Granulocytes # (auto) 0.03 K/uL (0.01-0.20); Immature Granulocytes % (auto) 0.3 %; Lymphocytes # (auto) 2.87 K/uL (1.2-3.4); Lymphocytes % (auto) 30.7 %; Mean Corpuscular Hemoglobin 28.6 pg (25.0-34.0); Mean Corpuscular Hgb Conc 33.7 g/dL (32.0-36.0); Mean Corpuscular Volume 84.9 fL (80.0-100.0); Mean Platelet Volume 11.2 fL (9.4-12.4); Monocytes # (auto) 0.45 K/uL (0.11-0.59); Monocytes % (auto) 4.8 %; Neutrophils # (auto) 5.97 K/uL (1.40-6.50); Neutrophils % (auto) 63.8 %; Platelet Count 293 K/uL (130-400); RDW Coefficient of Variation 14.7 % (11.5-14.5); RDW Standard Deviation 45.3 fL (36.4-46.3); Red Blood Count 4.89 M/uL (4.70-6.10); White Blood Count 9.36 K/ul (4.8-10.8)
[2022-11-12 19:52] LABS: Alanine Aminotransferase 26 U/L (7-52); Albumin Globulin Ratio 1.3 (0.9-2); Albumin Level 4.4 gm/dl (3.4-5.0); Alkaline Phosphatase 87 U/L (34-104); Anion Gap 11 (3-11); Aspartate Aminotransferase 24 U/L (13-39); BUN Creatinine Ratio 17.5 (10-20); Bilirubin,Total 0.5 mg/dl (0.2-1.0); Blood Urea Nitrogen 11 mg/dl (6-23); Calcium 9.6 mg/dl (8.6-10.3); Carbon Dioxide 22 mmol/L (21-32); Chloride 107 mmol/L (98-107); Creatinine Clr Calc Pharmacy 169.4 ml/min; Est GFR (African American) > 150.0 ml/min; Globulin 3.3 gm/dl (2.5-4.0); Glucose 87 mg/dl (70-99(Fasting)); Lipase 18 U/L (11-82); Magnesium 1.7 mg/dl (1.7-2.4); Potassium 3.4 mmol/L (3.5-5.1); Sodium 140 mmol/L (136-145); Total Protein 7.7 gm/dl (6.0-8.3)
[2022-11-12] MEDS ORDERED: HYDROmorphone INJ 1 MG/ML SYRINGE IV STA (19:57)
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
[2022-11-12] MEDS ORDERED: KETOROLAC 30 MG/ML VIAL IV PRN (22:26)
[2022-11-12] MEDS ORDERED: diphenhydrAMINE Capsule 25 MG CAP PO PRN (22:26)
[2022-11-12] MEDS ORDERED: ONDANSETRON INJ 2 MG/ML 2 ML VIAL IV PRN (22:26)
[2022-11-12] MEDS ORDERED: PROMETHAZINE HCL 12.5 MG in SODIUM CHLORIDE 0.9% 50 ML IV PRN (22:26)
[2022-11-12] MEDS ORDERED: TPN/PPN CONSULT PHARMACY PRN (22:34)
[2022-11-12] MEDS ORDERED: TPN/PPN CONSULT PHARMACY STA (22:50)
[2022-11-12] MEDS: LACTATED RINGER'S 1,000 ML IV SCH (22:55)
[2022-11-12] MEDS: MoRPHine SULFATE 2 MG/ML CARP IV PRN (23:00)
[2022-11-12] MEDS ORDERED: ENOXAPARIN INJ 40 MG/0.4 ML SYR SQ SCH (23:00)
[2022-11-13] MEDS: POTASSIUM CHLORIDE / WTR 10 MEQ/100 ML PLCT IV SCH ×2 (00:31→01:34)
[2022-11-13] MEDS: MoRPHine SULFATE 2 MG/ML CARP IV PRN ×5 (02:14→15:36)
[2022-11-13 06:22] LABS: Anion Gap 5 (3-11); BUN Creatinine Ratio 15.3 (10-20); Blood Urea Nitrogen 9 mg/dl (6-23); Calcium 8.7 mg/dl (8.6-10.3); Carbon Dioxide 24 mmol/L (21-32); Chloride 111 mmol/L (98-107); Creatinine Clr Calc Pharmacy 183.8 ml/min; Est GFR (African American) > 150.0 ml/min; Est GFR (Non-African American) 139.7 ml/min; Glucose 82 mg/dl (70-99(Fasting)); Magnesium 1.7 mg/dl (1.7-2.4); Phosphorus 3.9 mg/dl (2.5-4.9); Sodium 140 mmol/L (136-145)
--- NOTE | 2022-11-13 11:42 | Surgery Progress Note ---
Date of Service November 13, 2022 Assessment & Plan (1) Partial small bowel obstruction: Plan Continued partial small bowel obstruction in the setting of a hostile abdomen following an extensive surgical history We will advance to clears and then as tolerated. Out of bed ambulate No surgical intervention planned May discharge tonight or tomorrow We will follow-up with Dr. Singh as scheduled Admission and Anticipated Discharge Date Admission Date: November 12, 2022 Subjective States he is feeling better today. No nausea or vomiting. His pain is improved. He is still passing flatus and having bowel movements. Physical Exam Constitutional: WD/WN, vitals as above Eyes: PERRL, conjunctivae normal, anicteric sclerae Gastrointestinal (Abdomen): Inspection/Auscultation: abdomen normal to in spection; abdomen not distended Percussion/Palpation: + abdomen tender (Left upper quadrant, less than yesterday) and abdomen soft; no guarding and abdomen not rigid Skin: no rashes, warm and dry Results & Data Vital Signs (Past 12 Hours) Vital Signs Temp Pulse Resp BP Pulse Ox O2 Del Method 11/13/22 08:33 36.3 C L 58 L 16 103/66 99 Room Air
[2022-11-13] MEDS: LACTATED RINGER'S 1,000 ML IV SCH (12:02)
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
== END 2022-11-13 15:48 | disposition home or self-care (01) | DRG 390 ==
LOC: ED 18:54 → 3E 20:40

== ENCOUNTER 2022-11-14 17:13 | Observation (INO) ==
[2022-11-14] MEDS ORDERED: HYDROmorphone INJ 0.5 MG/0.5 ML SYR IV STA ×2 (17:31→18:24)
[2022-11-14] MEDS ORDERED: ONDANSETRON INJ 2 MG/ML 2 ML VIAL IV STA (17:31)
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
[2022-11-14] MEDS ORDERED: SODIUM CHLORIDE 0.9% 1000ML 1,000 ML IV SCH (17:45)
--- NOTE | 2022-11-14 18:10 | XRay Report ---
XR KUB/Abdomen 1 view CLINICAL HISTORY: abd pain TECHNIQUE: 1 view of the abdomen was obtained. Comparison: Comparison is made to CT abdomen pelvis 11/10/2022 and abdomen radiograph 11/10/2022 FINDINGS: Lung bases are unremarkable. Multiple loops of distended bowel are seen, somewhat decreased in diamet er from prior exam measuring up to 38 mm in diameter. The bowel gas pattern is nonobstructive. A mode rate amount of stool is noted within the large bowel. IMPRESSION: Redemonstration of small bowel obstruction, somewhat improved from prior exam. ACT 112: Negative or not required by law. Electronically signed by: Marty Melgar M.D. 11/14/2022 6:07 PM
[2022-11-14 18:14] LABS: Basophils # (auto) 0.03 K/uL (0-0.2); Basophils % (auto) 0.5 %; Eosinophils # (auto) 0.02 K/uL (0-0.50); Eosinophils % (auto) 0.4 %; Hematocrit (blood only) 46.5 % (42.0-52.0); Hemoglobin 15.6 g/dl (14.0-18.0); Immature Granulocytes # (auto) 0.02 K/uL (0.01-0.20); Immature Granulocytes % (auto) 0.4 %; Lymphocytes # (auto) 1.49 K/uL (1.2-3.4); Lymphocytes % (auto) 26.1 %; Mean Corpuscular Hemoglobin 28.7 pg (25.0-34.0); Mean Corpuscular Hgb Conc 33.5 g/dL (32.0-36.0); Mean Corpuscular Volume 85.6 fL (80.0-100.0); Mean Platelet Volume 11.1 fL (9.4-12.4); Monocytes # (auto) 0.37 K/uL (0.11-0.59); Monocytes % (auto) 6.5 %; Neutrophils # (auto) 3.77 K/uL (1.40-6.50); Neutrophils % (auto) 66.1 %; Platelet Count 295 K/uL (130-400); RDW Standard Deviation 46.5 fL (36.4-46.3); Red Blood Count 5.43 M/uL (4.70-6.10)
[2022-11-14 18:31] LABS: Albumin Globulin Ratio 1.4 (0.9-2); BUN Creatinine Ratio 14.9 (10-20); Bilirubin,Total 0.5 mg/dl (0.2-1.0); Calcium 10.4 mg/dl (8.6-10.3); Creatinine Clr Calc Pharmacy 142.3 ml/min; Est GFR (African American) 147.5 ml/min; Est GFR (Non-African American) 127.3 ml/min; Globulin 3.7 gm/dl (2.5-4.0); Potassium 3.5 mmol/L (3.5-5.1); Total Protein 8.7 gm/dl (6.0-8.3)
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
[2022-11-14] MEDS ORDERED: PROMETHAZINE HCL 12.5 MG in SODIUM CHLORIDE 0.9% 50 ML IV PRN (19:33)
[2022-11-14] MEDS ORDERED: diphenhydrAMINE Capsule 25 MG CAP PO PRN (19:33)
[2022-11-14] MEDS ORDERED: LACTATED RINGER'S 1,000 ML IV SCH (19:33)
[2022-11-14] MEDS ORDERED: KETOROLAC 30 MG/ML VIAL IV PRN (19:33)
[2022-11-14] MEDS ORDERED: ONDANSETRON INJ 2 MG/ML 2 ML VIAL IV PRN (19:33)
[2022-11-14] MEDS ORDERED: ENOXAPARIN INJ 40 MG/0.4 ML SYR SQ SCH (19:33)
[2022-11-14] MEDS: MoRPHine SULFATE 2 MG/ML CARP IV PRN ×2 (19:57→23:38)
[2022-11-15] MEDS: MoRPHine SULFATE 2 MG/ML CARP IV PRN ×2 (03:25→08:59)
--- NOTE | 2022-11-15 08:29 | Surgery Progress Note ---
Date of Service November 15, 2022 Assessment & Plan (1) Small bowel obstruction: Plan: Patient readmitted over the wknd with abdominal pain after drinking chicken broth KUB yesterday showed ongoing SBO, improved from previous imaging His abdomen is soft, non tender, non distended. He currently denies any pain/nausea/vomiting He is passing flatus and had a large BM yesterday evening Patient okay with discharging home today. He is receiving TPN for full nutrition. May benefit from NPO over next day or so and slowly reintroduce clear liquids as tolerates Will reschedule f/u with Dr. Singh later this wk vs next wk He does have f/u with a [facility] surgeon sometime in January Admission and Anticipated Discharge Date Admission Date: November 14, 2022 Subjective Patient says he is feeling better. Denies any nausea/vomiting. He is passing flatus and had a large BM last night. Physical Exam Physical Exam: awake/alert, no acute distress Respiratory: normal respiratory effort Gastrointestinal (Abdomen): Inspection/Auscultation: + abdominal surgical scar (c/d/i no infection); abdomen not distended Percussion/Palpation: abdomen sof t; abdomen nontender Results & Data Vital Signs (Past 12 Hours) Vital Signs Temp Pulse Pulse Resp BP Pulse Ox Pulse Ox 11/15/22 07:39 36.6 C 63 16 96 11/15/22 07:59 96/62 L 11/14/22 23:15 36.4 C L 73 15 127/87 97 11/14/22 23:01 68 16 101/68 97 11/14/22 22:26 63 19 125/68 98 11/14/22 21:22 97 11/14/22 21:03 98 H 15 110/76 96 O2 Del Method O2 Del Method 11/15/22 07:39 Room Air 11/15/22 07:59 11/14/22 23:15 Room Air 11/14/22 23:01 Room Air 11/14/22 22:26 Room Air 11/14/22 21:22 Room Air 11/14/22 21:03 Room Air PG Care Time/CCT Total # of Minutes Spent Total Time Spent with Patient: Total time spent is greater than 50% in coordination of care (as documented) at patient's floor/unit and/or counseling patient: Coding Level of Care Code 12514 SUB INP/OBS CARE 07/28MIN Diagnoses Small bowel obstruction K56.602
--- NOTE | 2022-11-17 09:44 | Discharge Summary ---
Date of Service November 15, 2022 Admission HPI Per Admitting Provider 27-year-old gentleman with complex medical and surgical history, the details of which are dictated in his history and physical from 2 days ago, presents to the hospital with ongoing abdominal pain. After being discharged yesterday, he advance his diet to clears and last night developed increasing abdominal pain. By this morning, the pain was still present and he represented to the emergency department. He denies fevers or chills. He is still passing flatus. He had a bowel movement yesterday. He denies vomiting. Principal Diagnosis partial small bowel obstruction abdominal pain Discharge Exam awake/alert, no acute distress Respiratory normal respiratory effort Gastrointestinal (Abdomen) Inspection/Auscultation: + abdominal surgical scar (c/d/i no infection); abdomen not distended Percussion/Palpation: abdomen soft; abdomen nontender Discharge Data Allergies Allergy/AdvReac Type Severity Reaction Status Date / Time Penicillins Allergy Unknown POSITIVE Verified 11/09/22 19:15 SKIN TEST Consultations 11/14/22 17:48 ED Decision to Admit Stat Hospital Course (1) Partial small bowel obstruction: This is a 27yM with a PMH of complex abdominal surgical history who presented to the [facility] ED on 11/14/22 with abdominal pain and vomiting after drinking fluids. He has a history of partial small bowel obstruction currently on TPN via a picc line. KUB obtained showed improved small bowel obstruction from prior imaging. He was admitted for pain control, IVF hydration, and bowel rest. Patient's pain improved and he continued to pass flatus and have BMs. On 11/15 patient denied any abdominal pain. His belly was soft, non tender, non distended. No nausea. He was deemed stable for discharge to home and resume his nocturnal TPN. He was going to take it easy over the next day or so and only take in small sips of clears for comfort until resuming on clears again as tolerates. He was asked to follow up in clinic within 1 week or so for follow up. He mentioned he also does have follow up at tertiary center in january. (2) Abdominal pain: (3) History of major abdominal surgery: Total Time Total Time Spent Total Time Spent (In Minutes): 10 Discharge Plan Discharge Items Patient Disposition: Home - Self-Care Reason For Visit: SMALL BOWEL OBSTRUCTION Discharge Diagnosis: small bowel obstruction Activity: Per Instructions section Lifting: Gradually increase as tolerated Bathing: No limitations Exercise/Sports: Gradually increase as tolerated Driving/Machine Use: Resume 1 day after discharge Non-emergency contact: Surgeon Call non-emergency contact if: you have any medication questions, your symptoms worsen, your pain is not controlled, you have a fever, your temperature is above 101.5, your wound has increased redness, your wound has increased drainage and your wound pain has increased Follow-up/Referrals: Jean Carlos Singh, [Surgeon] - 11/22/22 11:00 am (Our office will call you with a follow up appointment. Please call if you have not heard from them within 1 weeks time) Nataliya De Paz [Primary Care Provider] - Diet: Other - See Diet Comment Addtl Attending Provider Instructions: You will continue to receive TPN through your PICC line for your ongoing nutrit ion You may benefit from small sips of liquids/ice over the next day or so. Then you may slowly try to reintroduce clear liquids as you tolerate. Let your body be your guide, do not overdo it on the liquids if you are feeling nauseated or having pain Pending Studies at Discharge: No Stand-Alone Forms: My [facility], Smoking Cessation Medications and DC Order Prescriptions: Continued No Known Home Medications Discharge Orders: Discharge Order (Routine); Ordered 11/15/22 Ordered By: Zuri Donnelly/Other Patient Handouts: Small Bowel Obstruction Admission Data Admit Date/Time: 11/14/22 19:07 Attending Provider: Dashawn Castillo Admit Provider: Dashawn Castillo Primary Care Provider: Nataliya De Paz Other Providers: Dashawn Castillo Other Interventions: Discharge Summary Assessment (RN) Last Done: 11/15/22 09:07 Coding Level of Care Code 62065 IN/OBS DISCH 30 MIN/LESS Diagnoses Partial small bowel obstruction K56.600 Abdominal pain R10.9 History of major abdominal surgery Z98.890
== END 2022-11-15 09:47 | disposition home or self-care (01) ==
LOC: EDINP 17:13 → ED 17:13 → 3N 19:33